=== PATIENT | female | born 1970 | race Caucasian/White ===

== ENCOUNTER 2020-01-29 10:59 | Emergency (ER) | payer OTHER, SELFPAY ==
--- NOTE | 2020-01-29 | ECG_ITS ---
Test Reason : CHEST DISCOMFORT Blood Pressure : / mmHG Vent. Rate : 082 BPM Atrial Rate : 082 BPM P-R Int : 146 ms QRS Dur : 072 ms QT Int : 376 ms P-R-T Axes : 052 024 025 degrees QTc Int : 439 ms Normal sinus rhythm Possible Left atrial enlargement RSR' or QR pattern in V1 suggests right ventricular conduction delay Borderline ECG No previous ECGs available Referred By: Kathy Gee Electronically Signed By:JORDAN SEYMOUR MD
[2020-01-29 13:21] VITALS: BP 164/92; PULSE 88; RESP 18; TEMP 37.1; O2SAT 100; BMI 34.8
--- NOTE | 2020-01-29 13:37 | XR_ITS ---
EXAMINATION: XR CHEST CLINICAL INFORMATION: Dyspnea COMPARISON: None TECHNIQUE: Frontal view of the chest was obtained. FINDINGS: Cardiac leads overlie the chest. The lungs are well expanded. There is no focal consolidation, edema, or effusion. No pneumothorax. The cardiomediastinal silhouette is within normal limits. No acute osseous abnormality. XR/XR chest 1V IMPRESSION: Clear lungs.
--- NOTE | 2020-01-29 13:39 | ED.CHESTPAIN ---
HPI - Chest Pain General Chief Complaint: Chest Pain Stated Complaint: IRREGULAR HEART RATE Time Seen by Provider: 01/29/20 13:37 Source: patient Mode of arrival: ambulatory Limitations: no limitations History of Present Illness MD complaint: chest pain and chest heaviness Onset (ago): hour(s) (started 10am) Timing of current episode: constant Prior episodes: No Onset: during rest and during exertion Pain location: substernal Pain radiation: none Severity: moderate Quality: tightness and heaviness Relieving factors: nothing Exacerbating factors: nothing Associated symptoms: dyspnea and palpitations Treatment prior to arrival: none Related Data Previous Rx's Medication Instructions Recorded levothyroxine 100 mcg tablet 100 mcg PO DAILY #90 tab 01/07/20 Allergies Allergy/AdvReac Type Severity Reaction Status Date / Time amlodipine [AMLODIPINE] Allergy Intermediate SWELLING Unverified 11/27/19 19:09 OF FEET Amlodipine Allergy Unknown lower Uncoded 09/17/19 00:00 extremity Review of Systems Review of Systems: Constitutional : No Weight loss, No Fever, No Chills ENT/Mouth : No sore throat, No Rhinorrhea Eyes: No Eye Pain, No Swelling Cardiovascular : pos Chest Pain, pos SOB, no Dyspnea on Exertion, No Orthopnea, No Edema, No Palpitations Respiratory : No Cough, No Sputum Gastrointestinal : pos Nausea, No Vomiting, No Diarrhea, No abdominal Pain, No Hematochezia, No Melena Genitourinary : No Dysuria, No Urinary Frequency Musculoskeletal : No joint pain, No Myalgias, No Joint Swelling Skin : No Skin Lesions, No rash Neuro : No Weakness, No Numbness, No Dizziness, No Headache Psych : No Anxiety/Panic, No Depression Heme/Lymph: No Bruising, No Lymphadenopathy Endocrine : No Polyuria, No Polydipsia All other systems reviewed and are negative [facility] Past Medical History Attestation statement: The following information was validated with the patient. Medical History High blood pressure Hypothyroid Social History Social History (Updated 01/29/20 @ 13:40 by Kathy Gee DO) Alcohol intake: never Smoking Status: Former smoker Advance Directives: No Advance Directives Information Provided: Yes Physical Exam Vital Signs: Vital Signs: Last Vital Signs Temp 98.7 F 01/29/20 13:21 Pulse 88 01/29/20 13:21 Resp 18 01/29/20 13:21 BP 164/92 H 01/29/20 13:21 Pulse Ox 100 01/29/20 13:21 Body Mass Index 34.8 Appearance: Alert. Oriented X3. No acute distress. Eyes: Pupils equal, round and reactive to light. ENT: Pharynx normal. Neck: Normal inspection. Neck supple. CVS: irregular heart rate and rhythm. Pulses normal. Respiratory: No respiratory distress. Breath sounds normal. Abdomen: Soft and nontender. Skin: Skin warm and dry. Normal skin color. Normal skin turgor. Extremities: No lower extremity edema. No calf ttp Neuro: Oriented X 3. No motor deficit. No sensory deficit. Course Course Course Narrative: patient will need repeat troponin given indeterminate range describes palpitations at this time, given ASA signed out to Dr. Mckinley pending repeat tropon MDM - Chest Pain MDM Narrative Medical decision making narrative: 49 yo female with HTN, thyroid disease comes in with palpitations and dyspnea along with chest heaviness - started at 10am, pulse is irregular on my exam will need labs, lytes, TSH, troponin x 2, ddimer - if positive will need CTA, denies caffeine ingestion, dispo per results and findings. Lab Data Result diagrams: 01/29/20 14:18 01/29/20 15:08 Labs: Lab Results 01/29/20 01/29/20 01/29/20 Range/Units 14:18 14:18 14:19 WBC 11.9 H (4.8-10.8) X10*3/uL RBC 4.30 (4.20-5.50) X10*6/uL Hgb 13.4 (12.0-16.0) g/dl Hct 39.9 (37-47) % MCV 92.8 (80-98) fL MCH 31.2 (27.0-33.0) pg MCHC 33.6 (31.0-35.0) g/dl RDW 13.2 (11.0-16.0) % Plt Count 282 (160-400) X10*3/uL MPV 10.2 (9.4-12.3) fL Immature Gran % (Auto) 0.3 (0.0-0.4) % Neut % (Auto) 69.4 (45-73) % Lymph % (Auto) 20.4 (20-40) % [place] % (Auto) 6.7 (2-11) % Eos % (Auto) 2.4 (0-4) % Baso % (Auto) 0.8 (0-2) % Lymph # (Auto) 2.4 (1.2-4.9) X10*3/uL [place] # (Auto) 0.8 (0.1-1.2) X10*3/uL Eos # (Auto) 0.3 (0.0-0.4) X10*3/uL Baso # (Auto) 0.1 (0.0-0.2) X10*3/uL Abs Immat Gran (auto) 0.03 (0.00-0.03) X10*3/uL Absolute Neuts (auto) 8.2 (2.0-8.3) X10*3/uL Absolute Nucleated RBC 0.000 (0.0-0.012) X10*3/uL Nucleated RBC % (auto) 0.0 (0.0-0.2) /100WBC PT 12.9 (10.8-13.0) SEC INR 1.1 (0.9-1.1) APTT 32.5 (24.1-38.0) SEC D-Dimer < 200 NG/ML Sodium Potassium Chloride Carbon Dioxide Anion Gap BUN Creatinine Estim Creat Clear Calc Estimated GFR Random Glucose Calcium Magnesium Total Bilirubin Direct Bilirubin AST ALT Alkaline Phosphatase Troponin I High Sens 36.2 H (<3.5-17.0) ng/L B-Natriuretic Peptide 23 (<100) pg/mL Total Protein Albumin TSH 01/29/20 01/29/20 01/29/20 Range/Units 14:19 15:08 15:08 WBC (4.8-10.8) X10*3/uL RBC (4.20-5.50) X10*6/uL Hgb (12.0-16.0) g/dl Hct (37-47) % MCV (80-98) fL MCH (27.0-33.0) pg MCHC (31.0-35.0) g/dl RDW (11.0-16.0) % Plt Count (160-400) X10*3/uL MPV (9.4-12.3) fL Immature Gran % (Auto) (0.0-0.4) % Neut % (Auto) (45-73) % Lymph % (Auto) (20-40) % [place] % (Auto) (2-11) % Eos % (Auto) (0-4) % Baso % (Auto) (0-2) % Lymph # (Auto) (1.2-4.9) X10*3/uL [place] # (Auto) (0.1-1.2) X10*3/uL Eos # (Auto) (0.0-0.4) X10*3/uL Baso # (Auto) (0.0-0.2) X10*3/uL Abs Immat Gran (auto) (0.00-0.03) X10*3/uL Absolute Neuts (auto) (2.0-8.3) X10*3/uL Absolute Nucleated RBC (0.0-0.012) X10*3/uL Nucleated RBC % (auto) (0.0-0.2) /100WBC PT (10.8-13.0) SEC INR (0.9-1.1) APTT (24.1-38.0) SEC D-Dimer NG/ML Sodium Cancelled 139 Potassium Cancelled 3.9 Chloride Cancelled 105 Carbon Dioxide Cancelled 25 Anion Gap Cancelled 13 BUN Cancelled 15 Creatinine Cancelled 0.76 Estim Creat Clear Calc Cancelled 121.4 Estimated GFR Cancelled > 60 Random Glucose Cancelled 89 Calcium Cancelled 9.4 Magnesium Cancelled 2.0 Total Bilirubin Cancelled 0.5 Direct Bilirubin Cancelled 0.2 AST Cancelled 18 ALT Cancelled 12 Alkaline Phosphatase Cancelled 59 Troponin I High Sens (<3.5-17.0) ng/L B-Natriuretic Peptide (<100) pg/mL Total Protein Cancelled 7.8 Albumin Cancelled 4.3 TSH Cancelled ECG Data ECG #1: Attestation: I personally reviewed and interpreted this ECG as follows: ECG interpretation date: 01/29/20 ECG interpretation time: 13:46 Interpretation: Rate: 82 Rhythm: NSR [place]: normal Normal P waves. Normal MARY. Normal QRS complex. ST T wave : normal qTC: normal prior studies: no acute ischemia The study has been interpreted contemporaneously by me. . Discharge Plan Discharge Clinical Impression: Chest pain Instructions: Chest Pain (ED) Additional Instructions: return to ED for any worsening symptoms or concerns Prescriptions: No Action levothyroxine 100 mcg tablet 100 mcg PO DAILY Qty: 90 RF: 1 Referrals: Panchito Coleman MD [Primary Care Provider] - 2 days (outpatient stress test) Stand Alone Forms: Work/School Release
[2020-01-29 14:30] LABS: MANUAL DIFF FLAG NO
[2020-01-29 14:34] LABS: Basophils Absolute Auto 0.1 X10*3/uL (0.0-0.2); Basophils Percent Auto 0.8 % (0-2); Eosinophils Absolute Auto 0.3 X10*3/uL (0.0-0.4); Eosinophils Percent Auto 2.4 % (0-4); Hematocrit 39.9 % (37-47); Hemoglobin 13.4 g/dl (12.0-16.0); Imm Gran Abs Auto 0.03 X10*3/uL (0.00-0.03); Imm Gran Pct Auto 0.3 % (0.0-0.4); Lymphocytes Absolute Auto 2.4 X10*3/uL (1.2-4.9); Lymphocytes Percent Auto 20.4 % (20-40); Mean Corpuscular HGB Conc 33.6 g/dl (31.0-35.0); Mean Corpuscular Hemoglobin 31.2 pg (27.0-33.0); Mean Corpuscular Volume 92.8 fL (80-98); Mean Platelet Volume 10.2 fL (9.4-12.3); Monocytes Absolute Auto 0.8 X10*3/uL (0.1-1.2); Monocytes Percent Auto 6.7 % (2-11); Neutrophils Absolute Auto 8.2 X10*3/uL (2.0-8.3); Neutrophils Percent Auto 69.4 % (45-73); Platelet Count 282 X10*3/uL (160-400); Red Cell Distribution Width 13.2 % (11.0-16.0); White Blood Count 11.9 X10*3/uL (4.8-10.8)
[2020-01-29 14:39] LABS: INTERNATIONAL NORM RATIO 1.1 (0.9-1.1); Prothrombin Time 12.9 SEC (10.8-13.0)
[2020-01-29 14:42] LABS: D Dimer < 200 NG/ML; Partial Thromboplastin Time 32.5 SEC (24.1-38.0)
[2020-01-29 15:14] LABS: B Type Natriuretic Peptide 23 pg/mL (<100); Troponin-I High Sensitivity 36.2 ng/L (<3.5-17.0)
[2020-01-29] MEDS: Aspirin 81 MG TAB.CHEW 324 MG PO (15:25)
[2020-01-29 15:38] LABS: Anion Gap 13 (12-20); Blood Urea Nitrogen 15 mg/dL (9-16); Calcium 9.4 mg/dL (8.4-10.2); Carbon Dioxide 25 mmol/L (22-29); Chloride 105 mmol/L (96-108); Creatinine Clr Calc Pharmacy 121.4; Estimated Glomerular Filt Rate > 60; Glucose Random 89 mg/dL (60-115); Potassium 3.9 mmol/l (3.3-5.1); Sodium 139 mmol/L (135-145)
[2020-01-29 15:39] LABS: Alanine Aminotransferase 12 U/L (0-31); Albumin Level 4.3 g/dL (3.5-5.0); Alkaline Phosphatase 59 U/L (39-117); Aspartate Amino Transferase 18 U/L (5-31); Bilirubin Direct 0.2 mg/dL (0.0-0.5); Bilirubin Total 0.5 mg/dL (0.0-1.0); Total Protein 7.8 g/dL (6.5-8.0)
[2020-01-29 15:59] LABS: Thyroid Stimulating Hormone 1.36 uIU/mL (0.32-4.0)
[2020-01-29 16:41] VITALS: BP 134/86; PULSE 72; RESP 14; O2SAT 99
[2020-01-29 17:31] LABS: Troponin-I High Sensitivity 39.2 ng/L (<3.5-17.0)
== END 2020-01-29 17:51 | disposition home or self-care (01) ==
PROVIDERS: Emergency Provider Emergency Medicine; PCP Internal Medicine
DX: R07.9 Chest pain, unspecified (principal); Z79.899 Other long term (current) drug therapy; Z87.891 Personal history of nicotine dependence
CPT/HCPCS: 36415; 71045; 80048; 80076; 83735; 83880; 84443; 84484; 85025; 85379; 85610; 85730; 93005; 99284

== ENCOUNTER 2020-06-10 06:11 | Outpatient (REF) | payer OTHER, SELFPAY ==
[2020-06-10 11:12] LABS: MANUAL DIFF FLAG NO
[2020-06-10 11:39] LABS: Basophils Absolute Auto 0.1 X10*3/uL (0.0-0.2); Eosinophils Absolute Auto 0.4 X10*3/uL (0.0-0.4); Eosinophils Percent Auto 4.4 % (0-4); Hematocrit 40.3 % (37-47); Imm Gran Abs Auto 0.02 X10*3/uL (0.00-0.03); Imm Gran Pct Auto 0.2 % (0.0-0.4); Lymphocytes Absolute Auto 2.4 X10*3/uL (1.2-4.9); Lymphocytes Percent Auto 28.5 % (20-40); Mean Corpuscular HGB Conc 32.3 g/dl (31.0-35.0); Mean Corpuscular Hemoglobin 30.7 pg (27.0-33.0); Mean Platelet Volume 10.3 fL (9.4-12.3); Monocytes Absolute Auto 0.7 X10*3/uL (0.1-1.2); Monocytes Percent Auto 7.8 % (2-11); Neutrophils Absolute Auto 4.8 X10*3/uL (2.0-8.3); Neutrophils Percent Auto 58.1 % (45-73); Platelet Count 346 X10*3/uL (160-400); Red Blood Count 4.24 X10*6/uL (4.20-5.50); Red Cell Distribution Width 13.8 % (11.0-16.0); White Blood Count 8.3 X10*3/uL (4.8-10.8)
[2020-06-10 12:04] LABS: Alanine Aminotransferase 14 U/L (0-31); Albumin Level 4.1 g/dL (3.5-5.0); Alkaline Phosphatase 67 U/L (39-117); Anion Gap 13 (12-20); Aspartate Amino Transferase 18 U/L (5-31); Bilirubin Total 0.3 mg/dL (0.0-1.0); Blood Urea Nitrogen 13 mg/dL (9-16); Carbon Dioxide 28 mmol/L (22-29); Chloride 105 mmol/L (96-108); Cholesterol 182 mg/dL; Estimated Glomerular Filt Rate > 60; Glucose Fasting 82 mg/dL (60-99); HDL Cholesterol 57 mg/dL; LDL Cholesterol Calculated 109 mg/dl; Potassium 4.3 mmol/L (3.3-5.1); Sodium 142 mmol/L (135-145); Total Protein 7.7 g/dL (6.5-8.0); Triglycerides 83 mg/dL
[2020-06-10 12:13] LABS: TSH reflex Free T4 3.33 uIU/mL (0.32-4.0)
== END 2020-06-10 06:12 | disposition home or self-care (01) ==
LOC: HO.HMGCLDS 06:11
PROVIDERS: PCP Internal Medicine; Visit Provider Nurse Practitioner Family
DX: I10 Essential (primary) hypertension (principal); E78.00 Pure hypercholesterolemia, unspecified; E03.9 Hypothyroidism, unspecified
CPT/HCPCS: 36415; 80053; 80061; 84443; 85025

== ENCOUNTER → 2021-02-10 08:47 | Outpatient (BNVA) | payer OTHER, SELFPAY | PROVIDERS: PCP Internal Medicine; Visit Provider Physician Assistant ==

== ENCOUNTER → 2021-06-08 14:43 | Outpatient (REF) | payer OTHER, SELFPAY ==
--- NOTE | 2021-06-08 14:47 | CA_ITS ---
Transthoracic Echocardiogram Patient (Last, First, Middle): Paige Pritchard M Gender: Female Date of : 1970 Age: 51 Procedure Date: 06/08/2021 Procedure Type: Transthoracic Echocardiogram Location: OP Height: 180.34 cm Weight: 117.94 kg BSA: 2.36 m2 Heart Rate: bpm BP: 162 / 70 mmHg Revenue Accountant: YR/TO Referring MD: Panchito Coleman MD Symptoms: I10 - Essential (primary) hypertension Study Quality: Fair ECG Rhythm: Sinus Conclusions: - The left ventricular systolic function is normal. The calculated ejection fraction is 62% by biplane method. - No obvious valvular pathology seen on this study. - There is a small loculated pericardial effusion overlying the left ventricle. Findings Left Ventricle Normal left ventricular cavity size. There is mildly increased left ventricular wall thickness. The left ventricular systolic function is normal. The calculated ejection fraction is 62% by biplane method. There is no evidence of regional wall motion abnormalities. Diastolic function is normal for age. Right Ventricle Normal right ventricular cavity size and systolic function. Atria Both atria are normal in size. Aortic Valve There is a normal trileaflet aortic valve. There is no aortic valve stenosis. There is no aortic valve regurgitation. Mitral Valve The mitral valve appears normal. There is trace mitral valve regurgitation. There is no mitral valve stenosis. Pulmonic Valve The pulmonic valve was not well visualized. Tricuspid Valve There is trace tricuspid valve regurgitation. The pulmonary artery systolic pressure is normal. Great Vessels The aortic annulus, sinuses of valsalva, and asc aorta are normal in size. Venous The inferior vena cava is normal in size and collapses greater than 50% with inspiration. Pericardium/Pleural There is a small loculated pericardial effusion overlying the left ventricle. Prior Study Comparison No prior study available for comparison. Recommendations, Care & Conclusions No obvious valvular pathology seen on this study. Measurements 2D Linear Measurements IVSd: 1.09 0.6-0.9/0.6-1.0 cm LVIDd: 5.74 3.9-5.3/4.2-5.9 cm LVIDd Index: 2.43 2.4-3.2/2.2-3.1 cm/m2 LVIDs: 3.28 2.0-3.6 cm LVPWd: 1.13 0.7-1.1 cm LA Diam: 4.80 2.7-3.8/3.0-4.0 cm LAIDs Index: 2.03 1.5-2.3 cm/m2 LV Mass: 327.85 67-162/88-224 g LV Mass Index: 138.92 43-95/49-115 g/m2 LVOT Diam: 2.00 3.0+(-)1.3 cm 2D Systolic Function EF 4C: 64.40 >55% EF 2C: 60.70 >55% EF BiP: 62.40 >55% Mitral Valve MV Pk E: 0.84 MV PK A: 0.76 MV Decel Time: 269.00 E/A: 1.10 E'Lateral: 5.87 E'Medial: 5.98 E/E' Med: 14.10 E/E' Lat: 14.30 PHT: 79.00 MVA PHT: 2.78 Decel [place]: 3.13 Aortic Valve AoV Pk [place]rade: 1.55 AoV Mn Andrade: 1.09 AoV VTI: 0.37 AoV Pk Grad: 10.00 Aov Mn Grad: 5.00 FATOUMATA Cont.VTI: 2.33 LVOT LVOT Pk Andrade: 1.15 LVOT Mn Andrade: 0.80 LVOT VTI: 0.27 LVOT Pk Grad: 5.00 LVOT Mn Grad: 3.00 LVOT Diam: 2.00 LVOT Area: 3.14 Diastolic Function MV Pk E: 0.84 MV Pk A: 0.76 E/A: 1.10 E'Medial: 5.98 E/E' Med: 14.10 E' Laterial: 5.87 E/E' Lat: 14.30 Right Ventricle TAPSE (mm): 23.40 TVS' [place]: 15.10 Tricuspid Valve TR Pk Andrade: 1.74 TR Pk Grad: 12.00 RA Press: 3.00 RVSP: 15.00 Great Vessels Aorta Sinus of Valsalva: 3.14 2.0-3.[address] [place]: 2.56 1.7-3.4 cm Ao Asc: 3.20 2.1-3.4 cm Ao Arch: 3.10 Updated in Other Vendor System with Status of Final Alonso Sanchez MD electronically signed on 06/09/2021 2:47:47 PM with status of Final
== END ==
LOC: HO.CARD 14:43
PROVIDERS: Visit Provider Internal Medicine
DX: I10 Essential (primary) hypertension (principal)
CPT/HCPCS: 93306

== ENCOUNTER 2021-06-13 06:01 | Outpatient (REF) | payer OTHER, SELFPAY ==
[2021-06-13 12:12] LABS: Hematocrit 41.2 % (37.0-47.0); Hemoglobin 13.3 g/dl (12.0-16.0); Mean Corpuscular HGB Conc 32.3 g/dl (31.0-35.0); Mean Corpuscular Hemoglobin 30.3 pg (27.0-33.0); Mean Corpuscular Volume 93.8 fL (80.0-98.0); Mean Platelet Volume 10.8 fL (9.4-12.3); Platelet Count 292 X10*3/uL (160-400); Red Blood Count 4.39 X10*6/uL (4.20-5.50); Red Cell Distribution Width 13.6 % (11.0-16.0); White Blood Count 9.3 X10*3/uL (4.8-10.8)
[2021-06-13 12:13] LABS: Appearance Urine HAZY; Color Urine YELLOW; Glucose Urine UA NEG (NEG); Leukocyte Esterase Urine NEG (NEG); Nitrite Urine NEG (NEG); Urine Blood NEG (NEG); Urine Ketones NEG (NEG); Urine Protein NEG (NEG-TRACE)
[2021-06-13 12:28] LABS: Alanine Aminotransferase 12 U/L (0-31); Albumin Level 4.1 g/dL (3.5-5.0); Alkaline Phosphatase 71 U/L (39-117); Anion Gap 10 (12-20); Aspartate Amino Transferase 16 U/L (5-31); Bilirubin Direct 0.2 mg/dL (0.0-0.5); Bilirubin Total 0.5 mg/dL (0.0-1.0); Blood Urea Nitrogen 15 mg/dL (9-16); Calcium 9.7 mg/dL (8.4-10.2); Carbon Dioxide 29 mmol/L (22-29); Chloride 105 mmol/L (96-108); Cholesterol 169 mg/dL; Estimated Glomerular Filt Rate > 60; Glucose Random 94 mg/dL (60-115); HDL Cholesterol 47 mg/dL; LDL Cholesterol Calculated 101 mg/dl; Potassium 4.4 mmol/L (3.3-5.1); Sodium 140 mmol/L (135-145); Total Protein 7.8 g/dL (6.5-8.0); Triglycerides 106 mg/dL
[2021-06-13 12:52] LABS: Thyroid Stimulating Hormone 3.16 uIU/mL (0.32-4.0)
[2021-06-18 13:07] LABS: Vitamin D 25-OH, D2 <4 ng/mL; Vitamin D 25-OH, D3 17 ng/mL; Vitamin D 25-OH, Total 17 ng/mL (30-100)
== END 2021-06-13 06:02 | disposition home or self-care (01) ==
LOC: HO.HMGCLDS 06:01
PROVIDERS: Visit Provider Internal Medicine
DX: I10 Essential (primary) hypertension (principal); E66.01 Morbid (severe) obesity due to excess calories
CPT/HCPCS: 36415; 80048; 80061; 80076; 81003; 82306; 84443; 85027

== ENCOUNTER 2021-07-18 07:27 | Emergency (ER) | payer OTHER, SELFPAY ==
--- NOTE | ~2021-07-18 | XR_ITS ---
EXAMINATION: XR LUMBOSACRAL SPINE CLINICAL INFORMATION: Back pain. COMPARISON: None TECHNIQUE: Three views of the lumbosacral spine. FINDINGS: There are 5 nonrib-bearing lumbar vertebrae present endplate osteophyte formations, endplate sclerosis, consistent with multilevel mild degenerative spondylosis related changes are present. The L5-S1 alignment is not optimally evaluated to suboptimal positioning. The remainder of the lumbar vertebrae show satisfactory alignment. The posterior appendages are intact. The paraspinal soft tissues are unremarkable. XR/XR lumbar spine 2-3V IMPRESSION: Mild multilevel degenerative spondylosis. The L5-S1 and alignment is suboptimally visualized likely related to positioning. Alternative imaging modality may be considered for further clarification of this area if clinically appropriate.
[2021-07-18 07:30] VITALS: BP 160/94; PULSE 66; RESP 18; TEMP 35.7; O2SAT 100; BMI 36.9
[2021-07-18] MEDS: Ketorolac Tromethamine 60 MG/2 ML VIAL IM (09:06)
[2021-07-18 09:09] LABS: Appearance Urine HAZY; Color Urine YELLOW; Glucose Urine UA NEG (NEG); Leukocyte Esterase Urine NEG (NEG); Nitrite Urine NEG (NEG); PH 6.5 (5.0-8.0); Specific Gravity - Urine <= 1.005 (1.005-1.025); Urine Blood NEG (NEG); Urine Ketones NEG (NEG); Urine Protein NEG (NEG-TRACE)
--- NOTE | 2021-07-18 09:31 | ED.BACK ---
HPI - Back Pain/Injury General Chief Complaint: Back Pain/Injury Stated Complaint: Back pain Time Seen by Provider: 07/18/21 08:24 Source: patient Mode of arrival: ambulatory Limitations: no limitations History of Present Illness HPI Narrative: 51 yo female with a history of high blood pressure, high cholesterol, hypothyroidism, obesity here with reports of bilateral lower back pain for 6 days with no known injury or trauma. Pain is worsened with flexion of the spine. Pain is worsened with certain position changes in the bed. No radiation of pain. No numbness or tingling of the lower extremities. No bowel or bladder incontinence. No fevers or chills. Patient is ambulatory. Patient reports she is taking ibuprofen and Flexeril with continued symptoms. She was seen at urgent care on July 14 and started on Flexeril patient tells me she had already been taking this at home. She feels like pain is unchanged. She recently did get diagnosed with Achilles tendinitis of the left lower extremity and was using a boot. Patient is unsure if this may have caused her back pain as she was walking with the boot for some time. Related Data Previous Rx's Medication Instructions Recorded atorvastatin 10 mg tablet 10 mg PO DAILY 90 Days #90 tab 02/04/20 levothyroxine 100 mcg tablet 100 mcg PO DAILY 90 Days #90 tab 02/04/20 cyclobenzaprine 10 mg tablet 10 mg PO BEDTIME PRN #30 tab 05/10/20 losartan 50 mg tablet 50 mg PO DAILY #30 tab 06/27/20 celecoxib 200 mg capsule (Celebrex) 200 mg PO BID 30 Days #60 cap 02/10/21 levothyroxine 100 mcg tablet 100 mcg PO DAILY #90 tab 04/30/21 atorvastatin 10 mg tablet 10 mg PO DAILY #90 tab 05/06/21 metoprolol succinate 100 mg 100 mg PO DAILY #90 tab 06/15/21 tablet,extended release 24 hr cholecalciferol (vitamin D3) 1,250 1,250 mcg PO QWEEK #14 cap 06/23/21 mcg (50,000 unit) capsule cyclobenzaprine 10 mg tablet 10 mg PO BEDTIME #14 tab 07/14/21 losartan 50 mg tablet 100 mg PO DAILY 30 Days #60 tab 07/14/21 lidocaine 5 % topical patch 1 patch TOPICAL DAILY #15 ea 07/18/21 (Lidoderm) naproxen 500 mg tablet 500 mg PO BID PRN #30 tab 07/18/21 prednisone 20 mg tablet 40 mg PO DAILY #10 tab 07/18/21 Allergies Allergy/AdvReac Type Severity Reaction Status Date / Time amlodipine [AMLODIPINE] Allergy Intermediate SWELLING Verified 07/18/21 08:04 OF FEET Review of Systems Review of Systems: Yes all other systems are reviewed and are negative Constitutional: Constitutional: Reports no additional constitutional complaints, Denies body ache(s), Denies chills, Denies fever(s), Denies headache(s) and Denies weakness Eyes: Eyes: Reports no additional eye complaints and Denies change in vision ENT: Reports system reviewed and no additional complaints, except as documented, Denies dizziness, Denies headache(s), Denies nasal congestion, Denies nasal discharge and Denies neck pain Cardiovascular: Cardiovascular: Reports no additional cardiovascular complaints, Denies chest pain, Denies leg edema and Denies dyspnea Respiratory: Respiratory: Reports no additional respiratory complaints, Denies cough and Denies dyspnea Gastrointestinal: Gastrointestinal: Reports no additional gastrointestinal complaints, Denies abdominal pain, Denies diarrhea, Denies nausea and Denies vomiting Genitourinary: Genitourinary: Reports no additional female genitourinary complaints and Denies urinary incontinence Musculoskeletal: Musculoskeletal: Reports no additional musculoskeletal complaints, Reports back pain, Denies arthralgias, Denies joint swelling, Denies neck pain, Denies numbness and Denies tingling Integumentary/Breasts: Skin/Breast: Reports system reviewed and no additional complaints, except as docu and Denies rash Neurologic: Reports system reviewed and no additional complaints, except as documented, Denies Abnormal speech present, Denies dizziness, Denies headache(s), Denies numbness, Denies tingling and Denies weakness [facility] Past Medical History Attestation statement: The following information was validated with the patient. Source: old records reviewed and nursing notes reviewed Medical History Chest pain at rest Class 2 severe obesity with body mass index (BMI) of 35 to 39.9 with serious comorbidity Essential hypertension High blood pressure High cholesterol High cholesterol Hypertension Hypothyroid Hypothyroidism Hypothyroidism Surgical History History of History of foot surgery History of tonsillectomy Family History Family History Mother No problems noted. Father No problems noted. 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 Cognitive needs: No Hearing needs: No Vision needs: Yes (Glasses) Physical Exam Vital Signs: Vital Signs: Last Vital Signs Temp 96.2 F L 07/18/21 07:30 Pulse 66 07/18/21 07:30 Resp 18 07/18/21 09:45 BP 160/94 H 07/18/21 07:30 Pulse Ox 100 07/18/21 07:30 BMI result Body Mass Index 36.9 Const: General: cooperative, healthy appearing, comfortable and no acute distress Orientation/consciousness: patient oriented x3 Limitations: no limitations HEENT: Head: Yes normal to inspection Ears: hearing grossly normal bilaterally General nose exam: Normal external nose present Face and sinus: Yes normal facial exam Mouth: Normal oral and palatal mucosa present Throat: Yes posterior oropharynx normal Eyes: General: appearance normal, both eyes and all related structures Pupils: Equal, round and reactive pupils present Neck: Neck: Yes normal visual inspection Chest: Chest palpation & inspection: normal inspection of the chest Resp: Effort & Inspection: normal respiratory effort Auscultation: clear to auscultation bilaterally Cardio: Rate: regular rate Rhythm: regular rhythm Peripheral pulses: Peripheral pulses 2+ throughout GI: Inspection: Yes normal to inspection Palpation (GI): Soft to palpation and nontender Auscultation: normal bowel sounds Back/Spine/Pelvis: Other: There is no midline lumbar spine tenderness there are no step-offs or deformities. There is tenderness to the lumbar soft tissue area and over the paraspinal area that is worsened with flexion of the lumbar spine. There is pain with straight leg raise on the left side. The right side is normal with no pain. Thoracic/Lumbar Spine: thoracic and lumbar spine normal to inspection Skin: General skin exam: no rashes or lesions noted Neuro: General: patient oriented x3, no focal motor deficits and normal sensation to monofilament Cranial nerves: Yes Equal, round and reactive pupils present Cognition (Neuro): normal cognition Speech: No Abnormal speech present Gait exam (Neuro): Normal gait present Motor exam (neuro): 5/5 motor strength present throughout Sensory Exam: Normal double simultaneous stimulation for sensation Deep tendon reflexes (DTR's): Right patellar reflex intensity grade: 2+ and Left patellar reflex intensity grade: 2+ Extrem: General: Yes normal to inspection Course Course Course Narrative: 51-year-old female here with reports of 6 days of lower back pain with no known injury or trauma. No neurological deficits. No red flag symptoms. Pain is worsened with flexion of the spine. Patient has been trying NSAIDs and Flexeril at home with continued symptoms. Will check x-ray, UA, provide analgesia and reassess Reevaluation(s) Reevaluation #1: UA shows no signs of infection/hematuria. X-rays show -Mild multilevel degenerative spondylosis. The L5-S1 and alignment is suboptimally visualized likely related to positioning. Alternative imaging modality may be considered for further clarification of this area if clinically appropriate. -patient tells me she has some improvement after receiving Toradol. She said she has some more increased range of motion is able to bend down now. Consider lumbar strain, herniated disc/bulging disc or disease. Discussed with patient. Recommend follow-up outpatient with her primary care doctor for persistent symptoms for either physical therapy or additional imaging. She does have Flexeril at home and ibuprofen. We will change her a probing to naproxen, add Lidoderm prednisone. Reviewed worrisome signs and symptoms such as incontinence, numbness or tingling in the groin, fever and when to return to the emergency department. Comfortable discharge home. Time: 11:00 MDM - Back Pain/Injury MDM Narrative Medical decision making narrative: Low concern for cauda equina with no reports of saddle anesthesia or incontinence. Low concern for epidural abscess with no reports of fever, no history of immunocompromise state, IV drug use. Medical Records Attestation: I reviewed the patient's medical records. Lab Data Attestation: I reviewed the patient's lab results. Labs: Lab Results 07/18/21 Range/Units 09:02 Urine Color YELLOW Urine Appearance HAZY Urine pH 6.5 (5.0-8.0) Ur Specific [place] <= 1.005 (1.005-1.025) Urine Protein NEG (NEG-TRACE) MG/DL Urine Glucose (UA) NEG (NEG) MG/DL Urine Ketones NEG (NEG) MG/DL Urine Blood NEG (NEG) Urine Nitrite NEG (NEG) Ur Leukocyte Esterase NEG (NEG) Imaging Data lumbar x-rays: Attestation: I personally reviewed and interpreted this imaging study as follows: Radiologist's impression: [address] [address] XRay Report Signed Patient: Paige Pritchard MR#: [id number] : 1970 Acct:[id number] Age/Sex: 51 / F ADM Date: 07/18/21 Loc: HO.ED Attending Dr: Ordering Physician: Grisel Penn NP Date of Service: 07/18/21 Procedure(s): XR lumbar spine 2-3V Accession Number(s): [id number] cc: Grisel Penn NP~ EXAMINATION: XR LUMBOSACRAL SPINE CLINICAL INFORMATION: Back pain. COMPARISON: None TECHNIQUE: Three views of the lumbosacral spine. FINDINGS: There are 5 nonrib-bearing lumbar vertebrae present endplate osteophyte formations, endplate sclerosis, consistent with multilevel mild degenerative spondylosis related changes are present. The L5-S1 alignment is not optimally evaluated to suboptimal positioning. The remainder of the lumbar vertebrae show satisfactory alignment. The posterior appendages are intact. The paraspinal soft tissues are unremarkable. XR/XR lumbar spine 2-3V IMPRESSION: Mild multilevel degenerative spondylosis. The L5-S1 and alignment is suboptimally visualized likely related to positioning. Alternative imaging modality may be considered for further clarification of this area if clinically appropriate. Discharge Plan Discharge Clinical Impression: Back pain Patient Disposition: Home, Self-Care Instructions: Acute Low Back Pain (ED) Additional Instructions: Heat or ice Gentle stretching For persistent pain follow-up with her primary care doctor to discuss referral for physical therapy and/or additional imaging such as an MRI Take the Flexeril up to 3 times daily. Do not take it of working. We are switching your ibuprofen to naproxen Prescriptions: New naproxen 500 mg tablet 500 mg PO BID PRN (Reason: pain) Qty: 30 0RF lidocaine [Lidoderm] 5 % adhesive patch,medicated 1 patch topical DAILY Qty: 15 0RF Rx Instructions: leave on most painful area for up to 12 hrs prednisone 20 mg tablet 40 mg PO DAILY Qty: 10 0RF No Action cyclobenzaprine 10 mg tablet 10 mg PO BEDTIME PRN (Reason: for muscle spasm) Qty: 30 0RF losartan 50 mg tablet 50 mg PO DAILY Qty: 30 11RF levothyroxine 100 mcg tablet 100 mcg PO DAILY Qty: 90 1RF atorvastatin 10 mg tablet 10 mg PO DAILY Qty: 90 1RF cholecalciferol (vitamin D3) 1,250 mcg (50,000 unit) capsule 1,250 mcg PO QWEEK Qty: 14 1RF levothyroxine 100 mcg tablet 100 mcg PO DAILY 90 Days Qty: 90 0RF atorvastatin 10 mg tablet 10 mg PO DAILY 90 Days Qty: 90 0RF metoprolol succinate 100 mg tablet extended release 24 hr 100 mg PO DAILY Qty: 90 1RF losartan 50 mg tablet 100 mg PO DAILY 30 Days Qty: 60 1RF cyclobenzaprine 10 mg tablet 10 mg PO BEDTIME Qty: 14 0RF celecoxib [Celebrex] 200 mg capsule 200 mg PO BID 30 Days Qty: 60 0RF Referrals: Panchito Coleman MD [Primary Care Provider] - 5 days Stand Alone Forms: Work/School Release Interventions: ED Discharge Assessment Last Done: 07/18/21 10:57 Discharge Date/Time: 07/18/21 10:57
[2021-07-18 09:45] VITALS: RESP 18
== END 2021-07-18 10:57 | disposition home or self-care (01) ==
PROVIDERS: Nurse Practitioner Family; Emergency Provider Emergency Medicine; PCP Internal Medicine
DX: M54.50 Low back pain, unspecified (principal); M47.817 Spondylosis without myelopathy or radiculopathy, lumbosacral region; I10 Essential (primary) hypertension
CPT/HCPCS: 72100; 81003; 96372; 99284; J1885

== ENCOUNTER 2021-12-23 06:14 | Outpatient (REF) | payer OTHER, SELFPAY ==
[2021-12-23 11:46] LABS: Hematocrit 40.8 % (37.0-47.0); Hemoglobin 13.5 g/dl (12.0-16.0); Mean Corpuscular HGB Conc 33.1 g/dl (31.0-35.0); Mean Corpuscular Hemoglobin 30.1 pg (27.0-33.0); Mean Corpuscular Volume 90.9 fL (80.0-98.0); Mean Platelet Volume 10.9 fL (9.4-12.3); Platelet Count 274 X10*3/uL (160-400); Red Blood Count 4.49 X10*6/uL (4.20-5.50); Red Cell Distribution Width 13.2 % (11.0-16.0); White Blood Count 8.8 X10*3/uL (4.8-10.8)
[2021-12-23 12:02] LABS: Alanine Aminotransferase 13 U/L (0-31); Albumin Level 4.2 g/dL (3.5-5.0); Alkaline Phosphatase 74 U/L (39-117); Anion Gap 15 (12-20); Aspartate Amino Transferase 21 U/L (5-31); Bilirubin Direct 0.2 mg/dL (0.0-0.5); Bilirubin Total 0.6 mg/dL (0.0-1.0); Blood Urea Nitrogen 14 mg/dL (9-16); Calcium 9.5 mg/dL (8.4-10.2); Carbon Dioxide 25 mmol/L (22-29); Chloride 105 mmol/L (96-108); Cholesterol 173 mg/dL; Estimated Glomerular Filt Rate > 60; Glucose Random 94 mg/dL (60-115); HDL Cholesterol 49 mg/dL; LDL Cholesterol Calculated 106 mg/dl; Potassium 4.2 mmol/L (3.3-5.1); Sodium 141 mmol/L (135-145); Total Protein 7.8 g/dL (6.5-8.0); Triglycerides 94 mg/dL
[2021-12-23 12:17] LABS: Thyroid Stimulating Hormone 3.47 uIU/mL (0.32-4.0)
== END 2021-12-23 06:15 | disposition home or self-care (01) ==
LOC: HO.HMGCLDS 06:14
PROVIDERS: PCP Internal Medicine; Visit Provider Internal Medicine
DX: E03.9 Hypothyroidism, unspecified (principal); I10 Essential (primary) hypertension
CPT/HCPCS: 36415; 80048; 80061; 80076; 84443; 85027

== ENCOUNTER 2022-02-18 07:58 | Outpatient (REF) | payer OTHER, SELFPAY ==
[2022-02-18 11:14] LABS: MANUAL DIFF FLAG NO
[2022-02-18 11:19] LABS: Basophils Absolute Auto 0.1 X10*3/uL (0.0-0.2); Basophils Percent Auto 1.3 % (0-2); Eosinophils Absolute Auto 0.3 X10*3/uL (0.0-0.4); Eosinophils Percent Auto 3.4 % (0-4); Hematocrit 42.4 % (37.0-47.0); Hemoglobin 13.5 g/dl (12.0-16.0); Imm Gran Abs Auto 0.02 X10*3/uL (0.00-0.03); Imm Gran Pct Auto 0.2 % (0.0-0.4); Lymphocytes Absolute Auto 2.4 X10*3/uL (1.2-4.9); Mean Corpuscular HGB Conc 31.8 g/dl (31.0-35.0); Mean Corpuscular Hemoglobin 29.7 pg (27.0-33.0); Mean Corpuscular Volume 93.2 fL (80.0-98.0); Monocytes Absolute Auto 0.8 X10*3/uL (0.1-1.2); Monocytes Percent Auto 9.6 % (2-11); Neutrophils Absolute Auto 4.8 x10*3/uL (2.0-8.3); Neutrophils Percent Auto 57.5 % (45-73); Platelet Count 295 X10*3/uL (160-400); Red Blood Count 4.55 X10*6/uL (4.20-5.50); Red Cell Distribution Width 13.9 % (11.0-16.0); White Blood Count 8.4 X10*3/uL (4.8-10.8)
[2022-02-18 11:36] LABS: Appearance Urine Clear; Color Urine Yellow; Glucose Urine UA Negative (Negative); Leukocyte Esterase Urine Negative (Negative); Nitrite Urine Negative (Negative); PH 6.5 (5.0-9.0); Specific Gravity - Urine 1.015 (1.005-1.025); Urine Blood Negative (Negative); Urine Ketones Negative (Negative); Urine Protein Negative (Neg-Trace)
[2022-02-18 11:59] LABS: Alanine Aminotransferase 14 U/L (0-31); Albumin Level 4.2 g/dL (3.5-5.0); Alkaline Phosphatase 58 U/L (39-117); Anion Gap 13 (12-20); Aspartate Amino Transferase 21 U/L (5-31); Bilirubin Total 0.6 mg/dL (0.0-1.0); Blood Urea Nitrogen 18 mg/dL (9-16); Calcium 9.8 mg/dL (8.4-10.2); Carbon Dioxide 26 mmol/L (22-29); Chloride 105 mmol/L (96-108); Cholesterol 177 mg/dL; Estimated Glomerular Filt Rate > 60; Glucose Fasting 97 mg/dL (60-99); HDL Cholesterol 50 mg/dL; LDL Cholesterol Calculated 111 mg/dl; Potassium 4.5 mmol/L (3.3-5.1); Sodium 139 mmol/L (135-145); Total Protein 7.7 g/dL (6.5-8.0); Triglycerides 82 mg/dL
== END 2022-02-18 07:59 | disposition home or self-care (01) ==
LOC: HO.HMGCLDS 07:58
PROVIDERS: PCP Nurse Practitioner Family; Visit Provider Nurse Practitioner Family
DX: E03.9 Hypothyroidism, unspecified (principal); E78.00 Pure hypercholesterolemia, unspecified; I10 Essential (primary) hypertension
CPT/HCPCS: 36415; 80053; 80061; 81003; 84443; 85025

== ENCOUNTER → 2022-06-06 13:48 | Outpatient (BNVA) | payer OTHER, SELFPAY | PROVIDERS: PCP Nurse Practitioner Family; Visit Provider Physician Assistant Surgical | DX: Z13.89 Encounter for screening for other disorder (principal) ==

== ENCOUNTER 2022-06-10 10:53 | Outpatient (REF) | payer OTHER, SELFPAY ==
[2022-06-10 12:20] LABS: MANUAL DIFF FLAG NO
[2022-06-10 12:22] LABS: Basophils Absolute Auto 0.1 X10*3/uL (0.0-0.2); Basophils Percent Auto 0.9 % (0-2); Eosinophils Absolute Auto 0.4 X10*3/uL (0.0-0.4); Eosinophils Percent Auto 3.4 % (0-4); Hematocrit 38.5 % (37.0-47.0); Hemoglobin 12.9 g/dl (12.0-16.0); Imm Gran Abs Auto 0.04 X10*3/uL (0.00-0.03); Imm Gran Pct Auto 0.4 % (0.0-0.4); Lymphocytes Absolute Auto 2.8 X10*3/uL (1.2-4.9); Lymphocytes Percent Auto 27.5 % (20-40); Mean Corpuscular HGB Conc 33.5 g/dl (31.0-35.0); Mean Corpuscular Hemoglobin 31.8 pg (27.0-33.0); Mean Corpuscular Volume 94.8 fL (80.0-98.0); Mean Platelet Volume 10.6 fL (9.4-12.3); Monocytes Absolute Auto 1.1 X10*3/uL (0.1-1.2); Monocytes Percent Auto 10.3 % (2-11); Neutrophils Absolute Auto 5.9 x10*3/uL (2.0-8.3); Neutrophils Percent Auto 57.5 % (45-73); Platelet Count 297 X10*3/uL (160-400); Red Blood Count 4.06 X10*6/uL (4.20-5.50); Red Cell Distribution Width 14.1 % (11.0-16.0); Retic HGB Equivalent 35.3 pg (30.0-35.0); Reticulocyte Percent 1.8 % (0.5-1.8); Reticulocytes Absolute 0.074 X10*6/uL (0.026-0.095); White Blood Count 10.3 X10*3/uL (4.8-10.8)
[2022-06-10 12:32] LABS: Appearance Urine Clear; Color Urine Yellow; Glucose Urine UA Negative (Negative); Leukocyte Esterase Urine Negative (Negative); Nitrite Urine Negative (Negative); PH 7.5 (5.0-9.0); Specific Gravity - Urine 1.015 (1.005-1.025); Urine Blood Negative (Negative); Urine Ketones Negative (Negative); Urine Protein Negative (Neg-Trace)
[2022-06-10 13:03] LABS: Alanine Aminotransferase 16 U/L (0-31); Albumin Level 4.2 g/dL (3.5-5.0); Alkaline Phosphatase 77 U/L (39-117); Anion Gap 16 (12-20); Aspartate Amino Transferase 22 U/L (5-31); Bilirubin Total 0.5 mg/dL (0.0-1.0); Blood Urea Nitrogen 18 mg/dL (9-16); Calcium 9.9 mg/dL (8.4-10.2); Carbon Dioxide 25 mmol/L (22-29); Chloride 104 mmol/L (96-108); Estimated Glomerular Filt Rate > 60; Glucose Random 76 mg/dL (60-115); Iron 101 mcg/dL (30-160); Percent Iron Saturation 34 % (15-50); Potassium 4.7 mmol/L (3.3-5.1); Sodium 140 mmol/L (135-145); Total Iron Binding Capacity 294 mcg/dL (228-428); Total Protein 7.7 g/dL (6.5-8.0); Unsaturated Iron Binding 193 ug/dL
[2022-06-10 13:31] LABS: Ferritin 101 ng/mL (10-250); Folate 12.5 ng/mL (> or = 4.0); TSH reflex Free T4 2.74 uIU/mL (0.32-4.0); Vitamin B12 594 pg/mL (200-900)
== END 2022-06-10 10:54 | disposition home or self-care (01) ==
LOC: HO.HMGCLDS 10:53
PROVIDERS: PCP Nurse Practitioner Family; Visit Provider Nurse Practitioner Family
DX: R42 Dizziness and giddiness (principal); R53.83 Other fatigue
CPT/HCPCS: 36415; 80053; 81003; 82607; 82728; 82746; 83540; 83735; 84443; 85025; 85045

== ENCOUNTER → 2022-06-19 14:01 | Outpatient (BNVA) | payer OTHER, SELFPAY | PROVIDERS: PCP Nurse Practitioner Family; Visit Provider Physician Assistant Surgical | DX: Z13.89 Encounter for screening for other disorder (principal) ==

== ENCOUNTER → 2022-07-10 09:20 | Outpatient (BNVA) | payer OTHER, SELFPAY | PROVIDERS: PCP Nurse Practitioner Family; Visit Provider Dietitian, Registered | DX: E66.9 Obesity, unspecified (principal); Z68.38 Body mass index [BMI] 38.0-38.9, adult; Z71.3 Dietary counseling and surveillance | CPT/HCPCS: 97802 ==

== ENCOUNTER 2022-07-26 13:30 | Outpatient (REF) | payer OTHER, SELFPAY ==
--- NOTE | ~2022-07-26 | MR_ITS ---
EXAMINATION: MR BRAIN WITHOUT CONTRAST CLINICAL INFORMATION: Dizziness and giddiness. COMPARISON: None available. TECHNIQUE: MRI of the brain was obtained using routine sequences without contrast. FINDINGS: No focal restricted diffusion is demonstrated to suggest acute or subacute cerebral ischemia. No evidence of acute or chronic hemorrhagic products on heme-sensitive imaging. Scattered periventricular and deep white matter T2 FLAIR hyperintensities most commonly seen with mild underlying microangiopathy. The ventricles are normal in morphology and size. No abnormal mass effect. No midline shift. Normal appearance of the pituitary gland. No mass of the cerebellopontine angles. Normal positioning of the cerebellar tonsils. Normal arterial and venous vascular flow voids are present. Normal, homogeneous marrow signal. Mild mucosal thickening of the paranasal sinuses. No signal abnormalities within the mastoids. No demonstrated abnormalities of the labyrinthine structures without demonstrated loss of T2 signal. MR/MR head/brain wo con IMPRESSION: 1. No acute intracranial abnormalities. 2. Mild nonspecific white matter changes most commonly seen with mild underlying microangiopathy.
== END 2022-07-26 13:31 | disposition home or self-care (01) ==
LOC: HO.MRI 13:30
PROVIDERS: PCP Nurse Practitioner Family; Visit Provider Nurse Practitioner Family
DX: R42 Dizziness and giddiness (principal)
CPT/HCPCS: 70551

== ENCOUNTER → 2022-08-17 15:40 | Outpatient (BNVA) | payer OTHER, SELFPAY | PROVIDERS: PCP Nurse Practitioner Family; Visit Provider Physician Assistant Surgical ==

== ENCOUNTER 2022-10-30 12:57 | Outpatient (AMB) | payer OTHER, SELFPAY ==
--- NOTE | 2022-10-30 13:59 | AM.OFFWIN_ITS ---
Intake Vital Signs 10/30/22 14:01 Height 5 ft 11 in Weight 280 lb BMI 39.0 BP 112/70 Blood Pressure Location Lt brachial Position Sitting Pulse 66 Pulse Source Pulse Oximeter Temp 98.0 F Temp Source Temporal Artery Scan Pulse Oximetry (%) 100 Oxygen Delivery Method Room Air Intake Visit Reasons: EP/Fever/Difficulty breathing/[phone] Intake Note: pt is here for c/o fever, difficulty breathing since sunday Patient Tobacco Use Status: Former Tobacco user (2019) Allergies amlodipine [AMLODIPINE] Allergy (Intermediate, Verified 10/30/22 14:00) SWELLING OF FEET Do you need a note to return to daycare/school/sports/work: Yes HPI EP/Fever/Difficulty breathing/[phone] HPI Details Patient presents for a sick visit. Reporting symptoms of sinus congestion, sore throat and difficulty swallowing. Low-grade fever. No family member is sick. No recent travel. Patient reports symptoms of malaise and fatigue. Patient reports high-grade fever at times relieved with Motrin. [facility] Medical History Class 2 severe obesity with body mass index (BMI) of 35 to 39.9 with serious comorbidity Essential hypertension High cholesterol Hypothyroidism Surgical History History of History of foot surgery History of tonsillectomy Family History Mother No problems noted. Father No problems noted. 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 Current occupational exposures/hazards: No Cognitive needs: No Hearing needs: No Vision needs: Yes (Glasses) Physical Exam Vital Signs: Last Vital Signs Temp 98.0 F 10/30/22 14:01 Pulse 66 10/30/22 14:01 BP 112/70 10/30/22 14:01 Pulse Ox 100 10/30/22 14:01 Oxygen Delivery Method Room Air 10/30/22 14:01 BMI result Body Mass Index 39.0 Const General: cooperative and healthy appearing Nutritional Appearance: well nourished Orientation/consciousness: patient oriented x3 Limitations: no limitations HEENT Head: Yes normal to inspection Eyes General: appearance normal, both eyes and all related structures Neck Neck: Yes normal visual inspection Chest Chest palpation & inspection: normal palpation of entire chest wall Resp Effort & Inspection: normal respiratory effort Neuro General: patient oriented x3 Assessment & Plan Assessment & Plan (1) Acute bronchitis: Code(s): J20.9 - Acute bronchitis, unspecified Plan: Chest x-ray images was was reviewed by me. Patient has a large infiltrate on the right upper lobe. Levaquin, blood work ordered. Tylenol every 6 hours. Patient was experiencing excessive pain in the right shoulder. Tramadol for a few days ordered. Orders: Orders Basic Metabolic Panel Today J20.9 - Acute bronchitis, unspecified Liver Panel Today J20.9 - Acute bronchitis, unspecified Complete Blood Count no Diff Today J20.9 - Acute bronchitis, unspecified Erythrocyte Sedimentation Rate Today J20.9 - Acute bronchitis, unspecified AMB Acetaminophen Adult Dose Today J20.9 - Acute bronchitis, unspecified Medications: New acetaminophen 500 mg PO ONCE 1 tab 0RF J20.9 - Acute bronchitis, unspecified tramadol 50 mg PO BID PRN 10 tabs 0RF pain levofloxacin 500 mg PO DAILY 7 tabs 0RF Coding Level of Care Code Est Pt Level 4 (65536) Diagnoses Acute bronchitis J20.9
[2022-10-30 14:01] VITALS: BP 112/70; PULSE 66; TEMP 36.7; O2SAT 100; BMI 39.0
== END 2022-10-30 16:42 | disposition home or self-care (01) ==
PROVIDERS: PCP Nurse Practitioner Family; Visit Provider Internal Medicine
DX: J20.9 Acute bronchitis, unspecified (principal)
CPT/HCPCS: 99214

== ENCOUNTER 2022-10-30 14:32 | Outpatient (REF) | payer OTHER, SELFPAY ==
--- NOTE | ~2022-10-30 | XR_ITS ---
EXAMINATION: XR CHEST CLINICAL INFORMATION: Acute bronchitis. COMPARISON: 01/29/2020 chest radiograph. TECHNIQUE: 2 views of the chest were obtained. FINDINGS: Consolidation is seen posteroinferiorly in the right upper lobe. The left lung is clear. There are no pleural effusions. The heart and mediastinal structures are unremarkable. XR/XR chest 2V IMPRESSION: Right upper lobe infiltrate. Given the level of consolidation and lack of recent chest radiographs, 8 chest radiograph following termination treatment is recommended to assess for resolution.
[2022-10-30 17:08] LABS: Hematocrit 36.4 % (37.0-47.0); Mean Corpuscular Hemoglobin 30.6 pg (27.0-33.0); Mean Corpuscular Volume 92.9 fL (80.0-98.0); Mean Platelet Volume 10.3 fL (9.4-12.3); Platelet Count 277 X10*3/uL (160-400); Red Blood Count 3.92 X10*6/uL (4.20-5.50); Red Cell Distribution Width 13.9 % (11.0-16.0); White Blood Count 15.7 X10*3/uL (4.8-10.8)
[2022-10-30 17:41] LABS: Alanine Aminotransferase 21 U/L (0-31); Albumin Level 3.8 g/dL (3.5-5.0); Alkaline Phosphatase 86 U/L (39-117); Anion Gap 15 (12-20); Aspartate Amino Transferase 28 U/L (5-31); Bilirubin Direct 0.3 mg/dL (0.0-0.5); Bilirubin Total 0.5 mg/dL (0.0-1.0); Blood Urea Nitrogen 13 mg/dL (9-16); Calcium 9.8 mg/dL (8.4-10.2); Carbon Dioxide 24 mmol/L (22-29); Chloride 102 mmol/L (96-108); Estimated Glomerular Filt Rate 60; Glucose Random 97 mg/dL (60-115); Potassium 3.9 mmol/L (3.3-5.1); Sodium 137 mmol/L (135-145); Total Protein 8.2 g/dL (6.5-8.0)
[2022-10-30 17:48] LABS: Erythrocyte Sedimentation Rate 92 MM/HR (0-20)
== END 2022-10-30 14:33 | disposition home or self-care (01) ==
LOC: HO.HMGCX 14:32
PROVIDERS: PCP Nurse Practitioner Family; Visit Provider Internal Medicine
DX: J20.9 Acute bronchitis, unspecified (principal)
CPT/HCPCS: 36415; 71046; 80048; 80076; 85027; 85652

== ENCOUNTER 2022-10-31 17:01 | Inpatient (IN) | payer OTHER, SELFPAY ==
--- NOTE | ~2022-10-31 | XR_ITS ---
EXAMINATION: XR CHEST CLINICAL INFORMATION: Shortness of breath. COMPARISON: Chest radiograph 10/30/2022. TECHNIQUE: Frontal view of the chest was obtained. FINDINGS: Stable appearance of the cardiomediastinal silhouette. Similar focal airspace opacity in the right upper lobe. Slightly increased hazy attenuation of the right lower lobe. Clear left lung. No pleural effusion or pneumothorax. No acute osseous findings. XR/XR chest 1V IMPRESSION: 1. Similar focal airspace opacity in the right upper lobe. 2. Slightly increased hazy attenuation of the right lower lobe which could be related with subsegmental atelectasis, aspiration or a new/developing infiltrate. A follow-up radiograph is recommended after treatment to ensure adequate resolution of pneumonic infiltrates and rule out underlying lesion/malignancy.
--- NOTE | ~2022-10-31 | CT_ITS ---
EXAMINATION: CT ANGIOGRAM OF THE CHEST WITH AND WITHOUT CONTRAST (CT PULMONARY ANGIOGRAM FOR PE) CLINICAL INFORMATION: Pleuritic chest pain. COMPARISON: Chest x-rays of 10/31/2022, 10/30/2022, 01/29/2020. TECHNIQUE: Prior to contrast administration, noncontrast localization images were obtained. Subsequently, multidetector volumetric imaging was performed from the thoracic inlet to below the diaphragms following the administration of 65 mL Omnipaque 350 intravenous contrast. No contrast reaction reported Sagittal, coronal, and MIP oblique sagittal reformatted images were obtained on the CT workstation, uploaded to PACS, and reviewed. This CT examination was performed using dose optimization techniques as appropriate, variously including the following: *Automated exposure control *Adjustment of mA and/or kV according to patient size (this includes techniques or standardized protocols for targeted exams where dose is matched to indication/reason for exam; i.e. extremities or head) *Use of iterative reconstruction technique Total exam dose-length product 425 mGy-cm FINDINGS: QUALITY OF STUDY/CONTRAST BOLUS: Satisfactory. PULMONARY ARTERIES: No pulmonary emboli. THORACIC AORTA: No aneurysm. LUNG: Large right posterior upper lobe consolidation and right posterior lower lobe consolidation are again noted which do not appear to be significantly changed when compared to chest x-rays of 10/31/2022 and 10/30/2022. Streaky atelectasis is noted in the lingula and right middle lobe. Mild dependent changes at the left lung base. The left lung is otherwise relatively clear. No discrete pulmonary nodules are identified. No evidence of central endobronchial filling defects. PLEURA: No pleural effusion or pneumothorax. MEDIASTINUM: Normal heart size. No pericardial effusion. No hilar or mediastinal lymphadenopathy. No evidence of septal bowing or right heart strain. Trachea and mainstem bronchi are well patent. CORONARY ARTERY CALCIFICATION: None visualized on this study. CHEST WALL/AXILLA: No axillary or internal mammary lymphadenopathy. OSSEOUS STRUCTURES: No acute or suspicious osseous abnormality. Multilevel mild degenerative changes in the spine. UPPER ABDOMEN: There is a partially visualized low-density cystic round structure measuring 2 cm medial to the posterior right hepatic lobe adjacent to the adrenal gland; the finding appears to be representing portion of the simple right renal upper pole cyst noted on the abdominal ultrasound of 10/31/2022. No reflux of contrast into the hepatic veins to suggest elevated right heart pressures. CT/CT angio chest PE protocol IMPRESSION: 1. No evidence of pulmonary embolism. 2. Large right posterior upper lobe and right lower lobe consolidations are not significantly changed when compared to previous chest x-rays of 10/31/2022. No evidence of central endobronchial filling defects. The findings are most consistent with pneumonic consolidations. Recommend close clinical follow up and of follow up imaging to ensure resolution of the process and exclude other underlying disease process. VTE: negative.
--- NOTE | ~2022-10-31 | US_ITS ---
EXAMINATION: US ABDOMEN LIMITED CLINICAL INFORMATION: Pain. COMPARISON: None available. TECHNIQUE: Real-time imaging of the right upper quadrant abdominal viscera. FINDINGS: PANCREAS: Normal. LIVER: Normal. The liver is normal in size. The liver contour is normal. Parenchymal echogenicity is normal. No focal hepatic lesion. There is no intrahepatic biliary duct dilatation seen. GALLBLADDER: Normal. The gallbladder is physiologically distended without evidence of stones, sludge, polyps, wall thickening or pericholecystic fluid. COMMON BILE DUCT: Normal in caliber measuring 0.4 cm in diameter. RIGHT KIDNEY: No hydronephrosis. No renal calculi. There is a 4.6 x 4.2 x 3.8 cm simple cyst upper pole right kidney. The kidney measures 13.3 cm in maximum dimension. FREE FLUID: None. US/US abdomen limited IMPRESSION: No gallstones or biliary dilatation. Simple cyst upper pole left kidney for which follow up is not needed.
[2022-10-31 17:27] VITALS: BP 135/59; PULSE 97; RESP 18; TEMP 37.2; O2SAT 97; BMI 33.5
--- NOTE | 2022-10-31 17:27 | ED.URI ---
HPI - URI/Sore Throat General Chief Complaint: Upper Respiratory Symptoms Stated Complaint: Fever/Vomiting/+Pneumonia Time Seen by Provider: 10/31/22 18:22 Source: patient Mode of arrival: ambulatory Limitations: no limitations History of Present Illness HPI Narrative: 52-year-old female came in for evaluation of fever, left shoulder pain, vomiting. Patient work at [employer] with occasional exposure to sick people had 1 day of fever and chills with left shoulder pain was evaluated at a walk-in clinic yesterday and chest x-ray showed right upper lung pneumonia, patient was started on Levaquin patient tolerated the 1st dose of antibiotic at home, next day patient was still having a fever tried ibuprofen and Levaquin patient started to throw up after took the medicine, patient is complaining of slight B right upper quadrant pain. No CP, no SOB, no known exposure to a sick contact, no recent travel. Related Data Previous Rx's Medication Instructions Recorded cholecalciferol (vitamin D3) 1,250 1,250 mcg PO QWEEK #14 caps 06/26/22 mcg (50,000 unit) capsule losartan 100 mg tablet 100 mg PO DAILY #90 tabs 07/11/22 hydralazine 10 mg tablet 10 mg PO BID 30 days #60 tabs 08/23/22 metoprolol succinate 100 mg 100 mg PO DAILY #90 tabs 09/06/22 tablet,extended release 24 hr spironolactone 25 mg tablet 25 mg PO DAILY #90 tabs 09/14/22 (Aldactone) atorvastatin 10 mg tablet 10 mg PO DAILY #90 tabs 10/17/22 levothyroxine 100 mcg tablet 100 mcg PO DAILY #90 tabs 10/17/22 levofloxacin 500 mg tablet 500 mg PO DAILY #7 tabs 10/30/22 tramadol 50 mg tablet 50 mg PO BID PRN pain #10 tabs 10/30/22 Allergies Allergy/AdvReac Type Severity Reaction Status Date / Time amlodipine [AMLODIPINE] Allergy Intermediate SWELLING Verified 10/31/22 17:27 OF FEET Review of Systems Review of Systems: All other systems are reviewed and are negative Constitutional: Reports as per HPI and Reports no additional constitutional complaints Eyes: Reports as per HPI and Reports no additional eye complaints Reports system reviewed and no additional complaints, except as documented Cardiovascular: Reports as per HPI and Reports no additional cardiovascular complaints Respiratory: Reports as per HPI and Reports no additional respiratory complaints Gastrointestinal: Reports as per HPI and Reports no additional gastrointestinal complaints Genitourinary: Reports no additional female genitourinary complaints Musculoskeletal: Reports no additional musculoskeletal complaints Skin/Breast: Reports system reviewed and no additional complaints, except as docu Psychiatric: Reports no additional psychiatric complaints Endocrine: Reports no additional endocrine complaints Hematologic/Lymphatic: Reports no additional hematologic/lymphatic complaints Allergic/Immunologic: Reports no additional allergic/immunologic complaints Reports system reviewed and no additional complaints, except as documented and Reports Abnormal speech present [facility] Past Medical History Medical History Class 2 severe obesity with body mass index (BMI) of 35 to 39.9 with serious comorbidity Essential hypertension High cholesterol Hypothyroidism Surgical History History of History of foot surgery History of tonsillectomy Family History Family History Mother No problems noted. Father No problems noted. 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 Blood pressure normal. Heart rate normal. Respiration rate normal. Temperature normal. Oxygen saturation normal. Appearance: Alert. Oriented X3. No acute distress. Head: Normal external exam. Normocephalic. Atraumatic. No Barajas signs noted. No raccoon eyes noted Eyes: PERRLA. EOMI. Conjunctiva and sclera normal. Eyelids normal. ENT: TM's Normal. Pharynx normal. Uvula midline. Moist mucous membranes. No trismus noted. No drooling noted. No muffled voice noted. Neck: Normal inspection. Neck supple. FROM. No adenopathy. Thyroid Normal. No meningeal signs. No neck mass noted. CVS: Normal heart rate and rhythm. Heart sound normal. No murmurs noted. Pulses normal throughout. Respiratory: No respiratory distress. Painless inspiration. Breath sounds normal. No wheezes/rales/rhonchi noted. Chest nontender. No accessory muscle usage noted or decreased air movement noted. Abdomen: Soft and nontender. Bowel sounds normal in all 4 quadrants. No distention noted. No organomegaly noted. No visible injury noted. Back: No CVA tenderness. Full range of motion noted. Skin: Skin warm and dry. Normal skin color. Normal skin turgor. No rashes/lesions/lacerations noted. Extremities: No lower extremity edema. Extremities exhibit normal range of motion. Extremities nontender. Neuro: Oriented X 3. Cranial nerve exam: II-XII are grossly intact No motor deficit. No sensory deficit. Reflexes normal. Course Course Course Narrative: RME: 52yo F w/PMHx HTN, HLD, Hypothyroid, diagnosed with PNA on outpatient CXR yesterday started on Levaquin, fever (106.9 temporally per patient), N/V w/inability to tolerate PO or meds that were prescribed. Admits sx started on Sunday. Had labs yesterday as well. States tried to take Tylenol/Motrin today but vomited everything up. 99F orally in triage, nontoxic appearing Labs, CXR, Lactic/Cx, IVF ordered Full HPI, ROS and PE to be performed by primary ED provider. Reevaluation(s) Reevaluation #1: Patient received IV fluid and Zofran still feeling nauseous/retching. Will admit the patient for IV fluids and IV antibiotic. Patient meet criteria for SIRS but no severe sepsis or septic shock. Elevated troponin will recheck Time: 21:29 Medications Administered Discontinued Medications Generic Name Dose Route Start Last Admin Trade Name Meaghan PRN Reason Stop Dose Admin Sodium Chloride 1,000 mls @ 999 mls/hr 10/31/22 17:45 10/31/22 19:30 Ns IV 10/31/22 18:45 Infused .Q1H1M KRISTINE Infusion Levofloxacin 750 mg in 150 mls @ 100 mls/hr 10/31/22 18:26 10/31/22 19:27 Levaquin IV 10/31/22 19:55 100 mls/hr ONCE ONE Administration Ondansetron HCl 4 mg 10/31/22 18:39 10/31/22 19:28 Ondansetron Hcl 4 Mg/2 Ml Vial IVPUSH 10/31/22 18:40 4 mg ONCE ONE Administration Medical Decision Making Differential Diagnosis Differential Diagnoses: The differential diagnosis associated with the presentation includes (Pneumonia, sepsis, intractable vomiting, severe dehydration, electrolyte abnormality, severe anemia.) Admission/Observation Consideration of admission/observation: Escalation of care including admission/observation considered Consult Healthcare Provider Management of the patient was discussed with: Hospitalist (Dr. Hercules.) Lab Data MDM Lab Attestation statement: I reviewed the patient's lab results. 10/31/22 17:58 10/31/22 17:58 Labs: Lab Results 10/31/22 10/31/22 10/31/22 Range/Units 17:58 17:58 17:58 WBC 14.9 H (4.8-10.8) X10*3/uL RBC 3.78 L (4.20-5.50) X10*6/uL Hgb 11.5 L (12.0-16.0) g/dl Hct 34.7 L (37.0-47.0) % MCV 91.8 (80.0-98.0) fL MCH 30.4 (27.0-33.0) pg MCHC 33.1 (31.0-35.0) g/dl RDW 13.8 (11.0-16.0) % Plt Count 291 (160-400) X10*3/uL MPV 9.4 (9.4-12.3) fL Immature Gran % (Auto) 0.7 H (0.0-0.4) % Neut % (Auto) 86.3 H (45-73) % Lymph % (Auto) 6.1 L (20-40) % [place] % (Auto) 6.4 (2-11) % Eos % (Auto) 0.2 (0-4) % Baso % (Auto) 0.3 (0-2) % Lymph # (Auto) 0.9 L (1.2-4.9) X10*3/uL [place] # (Auto) 1.0 (0.1-1.2) X10*3/uL Eos # (Auto) 0.0 (0.0-0.4) X10*3/uL Baso # (Auto) 0.0 (0.0-0.2) X10*3/uL Abs Immat Gran (auto) 0.11 H (0.00-0.03) X10*3/uL Absolute Neuts (auto) 12.9 H (2.0-8.3) x10*3/uL Absolute Nucleated RBC 0.000 (0.0-0.012) X10*3/uL Nucleated RBC % (auto) 0.0 (0.0-0.2) /100WBC Sodium 131 L (135-145) mmol/L Potassium 3.7 (3.3-5.1) mmol/L Chloride 99 (96-108) mmol/L Carbon Dioxide 22 (22-29) mmol/L Anion Gap 14 (12-20) BUN 14 (9-16) mg/dL Creatinine 0.91 (0.5-1.4) mg/dL Estim Creat Clear Calc 96.0 Estimated GFR > 60 Random Glucose 123 H (60-115) mg/dL Lactic Acid (0.5-2.0) mmol/L Calcium 9.6 (8.4-10.2) mg/dL Magnesium 2.0 (1.6-2.6) mg/dL Total Bilirubin 0.7 (0.0-1.0) mg/dL Direct Bilirubin 0.4 (0.0-0.5) mg/dL AST 22 (5-31) U/L ALT 18 (0-31) U/L Alkaline Phosphatase 90 (39-117) U/L Troponin I High Sens (<3.5-17.0) ng/L Total Protein 8.0 (6.5-8.0) g/dL Albumin 3.6 (3.5-5.0) g/dL COVID-19 (NEETU) Negative (Negative) COVID-19 Clin Com See Note Influenza Type A (IBRAHIMA) (Negative) Influenza Type B (IBRAHIMA) (Negative) Influenza A & B Note 10/31/22 10/31/22 10/31/22 Range/Units 17:58 17:58 19:17 WBC (4.8-10.8) X10*3/uL RBC (4.20-5.50) X10*6/uL Hgb (12.0-16.0) g/dl Hct (37.0-47.0) % MCV (80.0-98.0) fL MCH (27.0-33.0) pg MCHC (31.0-35.0) g/dl RDW (11.0-16.0) % Plt Count (160-400) X10*3/uL MPV (9.4-12.3) fL Immature Gran % (Auto) (0.0-0.4) % Neut % (Auto) (45-73) % Lymph % (Auto) (20-40) % [place] % (Auto) (2-11) % Eos % (Auto) (0-4) % Baso % (Auto) (0-2) % Lymph # (Auto) (1.2-4.9) X10*3/uL [place] # (Auto) (0.1-1.2) X10*3/uL Eos # (Auto) (0.0-0.4) X10*3/uL Baso # (Auto) (0.0-0.2) X10*3/uL Abs Immat Gran (auto) (0.00-0.03) X10*3/uL Absolute Neuts (auto) (2.0-8.3) x10*3/uL Absolute Nucleated RBC (0.0-0.012) X10*3/uL Nucleated RBC % (auto) (0.0-0.2) /100WBC Sodium (135-145) mmol/L Potassium (3.3-5.1) mmol/L Chloride (96-108) mmol/L Carbon Dioxide (22-29) mmol/L Anion Gap (12-20) BUN (9-16) mg/dL Creatinine (0.5-1.4) mg/dL Estim Creat Clear Calc Estimated GFR Random Glucose (60-115) mg/dL Lactic Acid 0.9 (0.5-2.0) mmol/L Calcium (8.4-10.2) mg/dL Magnesium (1.6-2.6) mg/dL Total Bilirubin (0.0-1.0) mg/dL Direct Bilirubin (0.0-0.5) mg/dL AST (5-31) U/L ALT (0-31) U/L Alkaline Phosphatase (39-117) U/L Troponin I High Sens 42.0 H (<3.5-17.0) ng/L Total Protein (6.5-8.0) g/dL Albumin (3.5-5.0) g/dL COVID-19 (NEETU) (Negative) COVID-19 Clin Com Influenza Type A (IBRAHIMA) Negative (Negative) Influenza Type B (IBRAHIMA) Negative (Negative) Influenza A & B Note See Note Independent Interpretation I performed an independent interpretation of an: Plain X-Ray (Chest 10/30/2022. Right upper lobe infiltrate) and Ultrasound (Abdominal: No gallbladder problem.) Radiology Impression Discussion of test interpretation with radiology: I have reviewed the radiologist's reading. Discharge Plan Discharge Clinical Impression: Pneumonia, Sepsis Patient Disposition: Admitted As Inpatient
[2022-10-31 17:52] VITALS: BP 142/66; PULSE 93; RESP 16; O2SAT 97
[2022-10-31 18:02] LABS: MANUAL DIFF FLAG NO
[2022-10-31 18:07] LABS: Basophils Percent Auto 0.3 % (0-2); Eosinophils Percent Auto 0.2 % (0-4); Hematocrit 34.7 % (37.0-47.0); Hemoglobin 11.5 g/dl (12.0-16.0); Imm Gran Abs Auto 0.11 X10*3/uL (0.00-0.03); Imm Gran Pct Auto 0.7 % (0.0-0.4); Lymphocytes Absolute Auto 0.9 X10*3/uL (1.2-4.9); Lymphocytes Percent Auto 6.1 % (20-40); Mean Corpuscular HGB Conc 33.1 g/dl (31.0-35.0); Mean Corpuscular Hemoglobin 30.4 pg (27.0-33.0); Mean Corpuscular Volume 91.8 fL (80.0-98.0); Mean Platelet Volume 9.4 fL (9.4-12.3); Monocytes Percent Auto 6.4 % (2-11); Neutrophils Absolute Auto 12.9 x10*3/uL (2.0-8.3); Neutrophils Percent Auto 86.3 % (45-73); Platelet Count 291 X10*3/uL (160-400); Red Blood Count 3.78 X10*6/uL (4.20-5.50); Red Cell Distribution Width 13.8 % (11.0-16.0); White Blood Count 14.9 X10*3/uL (4.8-10.8)
[2022-10-31 18:13] LABS: Lactic Acid 0.9 mmol/L (0.5-2.0)
[2022-10-31] MEDS: 0.9 % Sodium Chloride 1,000 ML 999 ML IV (18:14)
[2022-10-31 18:18] LABS: Alanine Aminotransferase 18 U/L (0-31); Albumin Level 3.6 g/dL (3.5-5.0); Alkaline Phosphatase 90 U/L (39-117); Anion Gap 14 (12-20); Aspartate Amino Transferase 22 U/L (5-31); Bilirubin Direct 0.4 mg/dL (0.0-0.5); Bilirubin Total 0.7 mg/dL (0.0-1.0); Blood Urea Nitrogen 14 mg/dL (9-16); Calcium 9.6 mg/dL (8.4-10.2); Carbon Dioxide 22 mmol/L (22-29); Chloride 99 mmol/L (96-108); Estimated Glomerular Filt Rate > 60; Glucose Random 123 mg/dL (60-115); Potassium 3.7 mmol/L (3.3-5.1); Sodium 131 mmol/L (135-145)
[2022-10-31 18:28] LABS: COVID-19 Test Negative (Negative); IDNOW Serial# 08D9AD1C; IDNOW Serial# BCCEAD1C; Influenza A Negative (Negative); Influenza B2 Negative (Negative)
--- NOTE | 2022-10-31 18:43 | ECG_ITS ---
Test Reason : left shoulder pain Blood Pressure : / mmHG Vent. Rate : 088 BPM Atrial Rate : 088 BPM P-R Int : 150 ms QRS Dur : 074 ms QT Int : 360 ms P-R-T Axes : 040 016 004 degrees QTc Int : 435 ms Normal sinus rhythm Possible Left atrial enlargement Borderline ECG When compared with ECG of 29-JAN-2020 13:42, T wave amplitude has decreased in Anterior leads Referred By: Derrick Mckinley Electronically Signed By:JOY TREVINO
--- NOTE | 2022-10-31 19:06 | PC.NURSE ---
tech in room doing ekg and drawing labs.
[2022-10-31] MEDS: levoFLOXacin/D5W 750 MG/150 ML PIGGYBACK 100 MG IV (19:27)
[2022-10-31] MEDS: ondansetron HCL 4 MG/2 ML VIAL IVPUSH (19:28)
--- NOTE | 2022-10-31 19:35 | PC.NURSE ---
medication administered per provider order.
[2022-10-31 19:36] VITALS: BP 142/77; PULSE 87; RESP 16; TEMP 37.3; O2SAT 100
--- NOTE | 2022-10-31 22:02 | PHA.MEDREC ---
Pharmacy Consult ? Medication Reconciliation Pharmacy has completed the medication reconciliation. Patient reported medications. 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 Blaire Godfrey, AyalaD
[2022-10-31 22:18] VITALS: BP 151/75; PULSE 97; RESP 20; TEMP 38.2; O2SAT 93
--- NOTE | 2022-10-31 22:20 | P.HPHOSP_ITS ---
History of Present Illness Date of Service: 10/31/22 Chief Complaint: Nausea vomiting, pneumonia 52-year-old female past medical history of hyperlipidemia, hypertension, hypothyroidism, comes into the hospital after being diagnosed with pneumonia outpatient. Patient reports that she started having fever, and cough about 2 days ago, she was seen at walk-in clinic yesterday from was diagnosed with pneumonia, and was sent home on p.o. antibiotics. Patient states that she has right shoulder pain, as well as chest pain when coughing, radiating to the back, and she developed significant nausea vomiting today which brought her to the ED. she has been having fevers of up to [id number] daily, and now that she is nauseous and vomiting has not been able to take Tylenol or ibuprofen to keep the fever down and has not been able to take her p.o. antibiotics. Therefore she can not to the hospital She otherwise denies any abdominal pain, no nausea no vomiting, has constipation, urinary symptoms and no lower extremity edema On arrival to the ED patient hemodynamically stable noted to be febrile with a fever of 100.7 Labs are significant for WBC count of 14.9, hemoglobin of 11.5, hematocrit 34.7, sodium 131, troponin of 40 to increase to 51, BNP of 102, urine negative, Patient started on IV antibiotics will be admitted for further management Review of Systems Review of Systems: Yes all other systems are reviewed and are negative [facility] Medical History Class 2 severe obesity with body mass index (BMI) of 35 to 39.9 with serious comorbidity Essential hypertension High cholesterol Hypothyroidism Family History Mother No problems noted. Father No problems noted. 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 [employer] Current occupational exposures/hazards: No Cognitive needs: No Hearing needs: No Vision needs: Yes (Glasses) Meds Allergies Allergy/AdvReac Type Severity Reaction Status Date / Time amlodipine [AMLODIPINE] Allergy Intermediate SWELLING Verified 10/31/22 17:27 OF FEET Active Medications: Current Medications Ceftriaxone Sodium 1 gm/ (Sodium Chloride) 50 mls @ 100 mls/hr IV Q24H KRISTINE Azithromycin 500 mg/ Sodium (Chloride) 250 mls @ 125 mls/hr IV Q24H KRISTINE Home Medications Medication Instructions Recorded Confirmed Last Taken Type cholecalciferol (vitamin D3) 1,250 1,250 mcg PO GILLESPIE 10/31/22 10/31/22 10/31/22 History mcg (50,000 unit) capsule Physical Exam Vital Signs and Narrative: Vital Signs: Last Vital Signs Temp 99.2 F 10/31/22 19:36 Pulse 87 10/31/22 19:36 Resp 16 10/31/22 19:36 BP 142/77 H 10/31/22 19:36 Pulse Ox 100 10/31/22 19:36 O2 Del Method Room Air 10/31/22 19:36 BMI result Body Mass Index 33.5 Const: General: cooperative and no acute distress Orientation/consciousness: patient oriented x3 Eyes: General: appearance normal, both eyes and all related structures Resp: Other: crackles Effort & Inspection: normal respiratory effort Cardio: Rate: regular rate Rhythm: regular rhythm GI: Palpation (GI): Soft to palpation Auscultation: normal bowel sounds Skin: General skin exam: no rashes or lesions noted Neuro: General: patient oriented x3 Cognition (Neuro): normal cognition Extrem: General: Yes normal to inspection and Yes no pedal edema Results Labs 10/31/22 17:58 10/31/22 17:58 Labs: Laboratory Results - last 24 hr 10/31/22 10/31/22 10/31/22 17:58 17:58 17:58 MCV 91.8 MCH 30.4 MCHC 33.1 RDW 13.8 Plt Count 291 MPV 9.4 Immature Gran % (Auto) 0.7 H Neut % (Auto) 86.3 H Lymph % (Auto) 6.1 L [place] % (Auto) 6.4 Eos % (Auto) 0.2 Baso % (Auto) 0.3 Lymph # (Auto) 0.9 L [place] # (Auto) 1.0 Eos # (Auto) 0.0 Baso # (Auto) 0.0 Abs Immat Gran (auto) 0.11 H Absolute Neuts (auto) 12.9 H Absolute Nucleated RBC 0.000 Nucleated RBC % (auto) 0.0 Anion Gap 14 Estim Creat Clear Calc 96.0 Estimated GFR > 60 Random Glucose 123 H Lactic Acid Calcium 9.6 Magnesium 2.0 Total Bilirubin 0.7 Direct Bilirubin 0.4 AST 22 ALT 18 Alkaline Phosphatase 90 Total Protein 8.0 Albumin 3.6 COVID-19 (NEETU) Negative COVID-19 Clin Com See Note Influenza Type A (IBRAHIMA) Influenza Type B (IBRAHIMA) Influenza A & B Note 10/31/22 10/31/22 17:58 17:58 MCV MCH MCHC RDW Plt Count MPV Immature Gran % (Auto) Neut % (Auto) Lymph % (Auto) [place] % (Auto) Eos % (Auto) Baso % (Auto) Lymph # (Auto) [place] # (Auto) Eos # (Auto) Baso # (Auto) Abs Immat Gran (auto) Absolute Neuts (auto) Absolute Nucleated RBC Nucleated RBC % (auto) Anion Gap Estim Creat Clear Calc Estimated GFR Random Glucose Lactic Acid 0.9 Calcium Magnesium Total Bilirubin Direct Bilirubin AST ALT Alkaline Phosphatase Total Protein Albumin COVID-19 (NEETU) COVID-19 Clin Com Influenza Type A (IBRAHIMA) Negative Influenza Type B (IBRAHIMA) Negative Influenza A & B Note See Note Imaging Radiologist's Impressions: Impressions Abdomen Ultrasound 10/31/22 18:54 IMPRESSION: No gallstones or biliary dilatation. Simple cyst upper pole left kidney for which follow up is not needed. Assessment and Plan (1) Pneumonia: Qualifiers: Pneumonia type: due to unspecified organism Laterality: right Lung location: upper lobe of lung Qualified Code(s): J18.9 - Pneumonia, unspecified organism Status: Acute (2) Intractable nausea and vomiting: Status: Acute Plan 52-year-old female past medical history of hypertension, hypothyroidism comes into the hospital with nausea vomiting, after being recently diagnosed with pneumonia and unable to tolerate p.o. intake # intractable nausea vomiting - likely in the setting of acute infection/gastroenteritis - unable to take p.o. antibiotics - started on antiemetics, IV fluids - supportive measures # community-acquired pneumonia - chest x-ray shows persistent infiltrate, unable to keep p.o. antibiotics - will start on IV antibiotics - follow cultures # HTN - Continue antihypertensives # Hypothyroidsim - Continue levothyroxine DVT ppx: eliquis given pts need for IV abx, intolerating po, pt will require 2 nights min inpatient hosp stay Time Spent With Patient Time: Total time managing care of this patient today ____ minutes. Quality Stroke Does the patient have a stroke diagnosis?: No VTE Prior VTE?: No VTE Risk Level:: Medical - moderate - high VTE Device Contraindication: Treatment Not Indicated VTE Drug Contraindication: N/A - Med Ordered
[2022-10-31 22:32] LABS: Appearance Urine Clear; Color Urine Yellow; Glucose Urine UA Negative (Negative); Leukocyte Esterase Urine Negative (Negative); Nitrite Urine Negative (Negative); Specific Gravity - Urine 1.015 (1.005-1.025); UMIC TRIGGER UACC YES; Urine Blood Small (1+) (Negative); Urine Ketones Trace mg/dL (Negative); Urine Protein 100 (2+) mg/dL (Neg-Trace)
[2022-10-31 22:34] LABS: Bacteria Urine Trace (None Seen); Hyaline Casts Urine 0-2 /LPF (0-2); UACC Culture Trigger YES
[2022-10-31] MEDS: Acetaminophen 325 MG TABLET 650 MG PO (22:39)
[2022-10-31] MEDS: Morphine Sulfate 4 MG/ML CARTRIDGE IVPUSH (22:40)
[2022-10-31] MEDS: cefTRIAXone sodium 1 GM in 0.9 % Sodium Chloride 50 ML IV (22:40)
[2022-10-31] MEDS: Lactated Ringers 1,000 ML 100 ML IVCONT (22:50)
[2022-10-31 23:03] LABS: D Dimer High Sensitivity 638 NG/ML
[2022-10-31 23:27] VITALS: BP 121/55; PULSE 89; RESP 20; TEMP 37.4; O2SAT 94
[2022-11-01] VITALS (8 sets, daily range): BP systolic 117–133; BP diastolic 48–86; PULSE 74–91; RESP 14–20; TEMP 36–37.4; O2SAT 93–97; BMI 40.0
[2022-11-01] MEDS: Azithromycin 500 MG in 0.9 % Sodium Chloride 250 ML 125 MG IV ×3 (00:50→22:42)
[2022-11-01] MEDS: Enoxaparin Sodium 40 MG/0.4 ML SYRINGE SUBCUT ×2 (00:51→22:14)
[2022-11-01] MEDS: 0.9 % Sodium Chloride Flush 3 ML SYRINGE IVFLUSH ×2 (01:07→22:15)
--- NOTE | 2022-11-01 04:00 | PC.NURSE ---
This casualty underwriter assumed care of this Pt at 0300. Pt A&Ox4, reports 7/10 shoulder pain, and 4/10 headache, Pt medicated per MAR, Fluids running per MAY. Pt ambulated to the BR independently with steady to gait.
[2022-11-01] MEDS: Acetaminophen 325 MG TABLET 650 MG PO ×3 (04:57→20:48)
[2022-11-01 05:46] LABS: Basophils Absolute Auto 0.1 X10*3/uL (0.0-0.2); Basophils Percent Auto 0.5 % (0-2); Eosinophils Absolute Auto 0.1 X10*3/uL (0.0-0.4); Eosinophils Percent Auto 0.8 % (0-4); Hematocrit 31.9 % (37.0-47.0); Hemoglobin 10.5 g/dl (12.0-16.0); Imm Gran Abs Auto 0.07 X10*3/uL (0.00-0.03); Imm Gran Pct Auto 0.5 % (0.0-0.4); Lymphocytes Absolute Auto 1.9 X10*3/uL (1.2-4.9); Lymphocytes Percent Auto 14.5 % (20-40); MANUAL DIFF FLAG SCAN; Mean Corpuscular HGB Conc 32.9 g/dl (31.0-35.0); Mean Corpuscular Hemoglobin 30.5 pg (27.0-33.0); Mean Corpuscular Volume 92.7 fL (80.0-98.0); Mean Platelet Volume 9.7 fL (9.4-12.3); Monocytes Absolute Auto 1.8 X10*3/uL (0.1-1.2); Monocytes Percent Auto 13.6 % (2-11); Neutrophils Absolute Auto 9.3 x10*3/uL (2.0-8.3); Neutrophils Percent Auto 70.1 % (45-73); Platelet Count 264 X10*3/uL (160-400); Red Blood Count 3.44 X10*6/uL (4.20-5.50); Red Cell Distribution Width 13.8 % (11.0-16.0); SCAN SMEAR FLAG 1; White Blood Count 13.2 X10*3/uL (4.8-10.8)
--- NOTE | 2022-11-01 05:58 | CA_ITS ---
Transthoracic Echocardiogram Patient (Last, First, Middle): Paige Pritchard M Gender: Female Date of : 1970 Age: 52 Procedure Date: 11/01/2022 Procedure Type: Transthoracic Echocardiogram Location: ER Height: 180.34 cm Weight: 108.86 kg BSA: 2.28 m2 Heart Rate: 83 bpm BP: 127 / 59 mmHg Educational Interpreter: MARK Referring MD: Maite Chilel MD Symptoms: A fib w RVR Study Quality: Adequate ECG Rhythm: Sinus Conclusions: - The left ventricular systolic function is normal. The calculated ejection fraction is 63% by biplane method. - No obvious valvular pathology seen on this study. - There is a small loculated pericardial effusion overlying the left ventricle. Findings Left Ventricle Normal left ventricular cavity size. There is mildly increased left ventricular wall thickness. The left ventricular systolic function is normal. The calculated ejection fraction is 63% by biplane method. There is no evidence of regional wall motion abnormalities. Evidence suggests grade I (mild) diastolic dysfunction. Right Ventricle Normal right ventricular cavity size and systolic function. Atria Both atria are normal in size. Aortic Valve There is a normal trileaflet aortic valve. There is no aortic valve stenosis. There is no aortic valve regurgitation. Mitral Valve There is mild anterior mitral leaflet thickening. There is trace mitral valve regurgitation. There is no mitral valve stenosis. Pulmonic Valve The pulmonic valve is likely normal. Tricuspid Valve There is trace tricuspid valve regurgitation. There is no evidence of pulmonary hypertension. Great Vessels The asc aorta is normal in size. Venous The inferior vena cava is normal in size and collapses greater than 50% with inspiration. Pericardium/Pleural There is a small loculated pericardial effusion overlying the left ventricle. There are no definitive echocardiographic findings of tamponade physiology. Prior Study Comparison No significant change compared to prior study dated: 06/08/2021. Recommendations, Care & Conclusions No obvious valvular pathology seen on this study. Measurements 2D Linear Measurements IVSd: 1.30 0.6-0.9/0.6-1.0 cm LVIDd: 4.50 3.9-5.3/4.2-5.9 cm LVIDd Index: 1.97 2.4-3.2/2.2-3.1 cm/m2 LVIDs: 2.70 2.0-3.6 cm LVPWd: 1.20 0.7-1.1 cm LA Diam: 4.20 2.7-3.8/3.0-4.0 cm LAIDs Index: 1.84 1.5-2.3 cm/m2 LV Mass: 261.95 67-162/88-224 g LV Mass Index: 114.89 43-95/49-115 g/m2 LVOT Diam: 1.90 3.0+(-)1.3 cm 2D Systolic Function EF 4C: 64.40 >55% EF 2C: 61.20 >55% EF BiP: 62.80 >55% Mitral Valve MV Pk E: 0.94 MV PK A: 1.18 MV Decel Time: 253.00 E/A: 0.80 E'Lateral: 8.27 E'Medial: 5.87 E/E' Med: 16.00 E/E' Lat: 11.40 PHT: 74.00 MVA PHT: 2.97 Decel Pettis: 3.71 Aortic Valve AoV Pk Andrade: 1.66 AoV Mn Andrade: 1.20 AoV VTI: 0.36 AoV Pk Grad: 11.00 Aov Mn Grad: 7.00 FATOUMATA Cont.VTI: 2.29 LVOT LVOT Pk Andrade: 1.32 LVOT Mn Andrade: 0.91 LVOT VTI: 0.29 LVOT Pk Grad: 7.00 LVOT Mn Grad: 4.00 LVOT Diam: 1.90 LVOT Area: 2.84 Diastolic Function MV Pk E: 0.94 MV Pk A: 1.18 E/A: 0.80 E'Medial: 5.87 E/E' Med: 16.00 E' Laterial: 8.27 E/E' Lat: 11.40 Right Ventricle TAPSE (mm): 28.80 TVS' Andrade: 13.40 Tricuspid Valve TR Pk Andrade: 2.25 TR Pk Grad: 20.00 RA Press: 3.00 RVSP: 23.00 Great Vessels Aorta Sinus of Valsalva: 3.60 2.0-3.5 cm Ao Asc: 3.40 2.1-3.4 cm Pulmonary Valve PV Pk Andrade: 1.15 Peak PV Grad: 5.00 Updated in Other Vendor System with Status of Final Alonso Sanchez MD electronically signed on 11/01/2022 12:29:02 PM with status of Final
[2022-11-01 06:00] LABS: Anion Gap 12 (12-20); Blood Urea Nitrogen 11 mg/dL (9-16); Calcium 9.1 mg/dL (8.4-10.2); Carbon Dioxide 22 mmol/L (22-29); Chloride 103 mmol/L (96-108); Creatinine Clr Calc Pharmacy 114.9; Estimated Glomerular Filt Rate > 60; Glucose Random 93 mg/dL (60-115); Sodium 133 mmol/L (135-145)
[2022-11-01 06:28] LABS: B Type Natriuretic Peptide 102 pg/mL (<100)
[2022-11-01 06:29] LABS: SLIDE REVIEW VERIFIED
--- NOTE | 2022-11-01 07:25 | PC.NURSE ---
IV placed LFA for CT
[2022-11-01] MEDS: iohexoL 350 MG/ML 100 ML INFUS..BTL 65 ML IV (07:42)
[2022-11-01] MEDS: Lactated Ringers 1,000 ML 100 ML IVCONT ×2 (09:26→20:46)
[2022-11-01] MEDS: Omeprazole 20 MG CAPSULE.DR PO (09:26)
--- NOTE | 2022-11-01 10:27 | P.PNIM_ITS ---
Subjective Subjective Date of Service: 11/01/22 Review of Systems Follow-up community-acquired pneumonia Still with some mild nausea No shortness of breath Physical Exam Vital Signs: Vital Signs: Last Vital Signs Temp 98.1 F 11/01/22 10:10 Pulse 76 11/01/22 10:10 Resp 19 11/01/22 10:10 BP 122/86 11/01/22 10:10 Pulse Ox 97 11/01/22 10:10 O2 Del Method Room Air 11/01/22 10:10 BMI result Body Mass Index 33.5 Appearing in no acute distress lung sounds are clear to auscultation heart regular rate rhythm, clear S1, S2 positive bowel sounds, abdomen is soft, nontender neuro patient is alert x3, no focal deficits Objective Data Active Medications Acetaminophen (Acetaminophen 325 Mg Tablet) 650 mg PO Q6H PRN PRN Reason: Pain, Mild (Pain Scale 1-3) Last Admin: 11/01/22 04:57 Dose: 650 mg Documented By: ADAN Docusate Sodium (Docusate Sodium 100 Mg Capsule) 100 mg PO DAILY PRN PRN Reason: Constipation Enoxaparin Sodium (Enoxaparin Sodium 40 Mg/0.4 Ml Syringe) 40 mg SUBCUT Q24H [facility] Last Admin: 11/01/22 00:51 Dose: 40 mg Documented By: NICOLE Ceftriaxone Sodium 1 gm/ (Sodium Chloride) 50 mls @ 100 mls/hr IV Q24H [facility] Last Infusion: 11/01/22 01:06 Dose: 0 mls/hr Documented By: NICOLE Azithromycin 500 mg/ Sodium (Chloride) 250 mls @ 125 mls/hr IV Q24H [facility] Last Infusion: 11/01/22 03:07 Dose: 0 mls/hr Documented By: ADAN Lactated Ringer's (Lr) 1,000 mls @ 100 mls/hr IVCONT .Q10H [facility] Last Admin: 11/01/22 09:26 Dose: 100 mls/hr Documented By: PASCUAL Omeprazole (Omeprazole 20 Mg Capsule.) 20 mg PO DAILY@0630 [facility] Last Admin: 11/01/22 09:26 Dose: 20 mg Documented By: PASCUAL Ondansetron HCl (Ondansetron Hcl 4 Mg/2 Ml Vial) 4 mg IVPUSH Q8H PRN PRN Reason: Nausea and Vomiting Sodium Chloride (0.9 % Sodium Chloride Flush 3 Ml Syringe) 3 ml IVFLUSH QSHIFT [facility] Last Admin: 11/01/22 09:05 Dose: Not Given Documented By: PASCUAL Non-Admin Reason: IV Running Labs 11/01/22 05:18 11/01/22 05:18 Labs: Laboratory Results - last 24 hr 10/31/22 10/31/22 10/31/22 17:58 17:58 17:58 MCV 91.8 MCH 30.4 MCHC 33.1 RDW 13.8 Plt Count 291 MPV 9.4 Immature Gran % (Auto) 0.7 H Neut % (Auto) 86.3 H Lymph % (Auto) 6.1 L [place] % (Auto) 6.4 Eos % (Auto) 0.2 Baso % (Auto) 0.3 Lymph # (Auto) 0.9 L [place] # (Auto) 1.0 Eos # (Auto) 0.0 Baso # (Auto) 0.0 Abs Immat Gran (auto) 0.11 H Absolute Neuts (auto) 12.9 H Absolute Nucleated RBC 0.000 Nucleated RBC % (auto) 0.0 Smear Tech's Comments D-Dimer High Sensitivty Anion Gap 14 Estim Creat Clear Calc 96.0 Estimated GFR > 60 Random Glucose 123 H Lactic Acid Calcium 9.6 Magnesium 2.0 Total Bilirubin 0.7 Direct Bilirubin 0.4 AST 22 ALT 18 Alkaline Phosphatase 90 B-Natriuretic Peptide Total Protein 8.0 Albumin 3.6 Urine Color Urine Appearance Urine pH Ur Specific [place] Urine Protein Urine Glucose (UA) Urine Ketones Urine Blood Urine Nitrite Ur Leukocyte Esterase Urine RBC Urine WBC Ur Squamous Epith Cells Urine Bacteria Hyaline Casts COVID-19 (NEETU) Negative COVID-19 Clin Com See Note Influenza Type A (IBRAHIMA) Influenza Type B (IBRAHIMA) Influenza A & B Note 10/31/22 10/31/22 10/31/22 17:58 17:58 22:20 MCV MCH MCHC RDW Plt Count MPV Immature Gran % (Auto) Neut % (Auto) Lymph % (Auto) [place] % (Auto) Eos % (Auto) Baso % (Auto) Lymph # (Auto) [place] # (Auto) Eos # (Auto) Baso # (Auto) Abs Immat Gran (auto) Absolute Neuts (auto) Absolute Nucleated RBC Nucleated RBC % (auto) Smear Tech's Comments D-Dimer High Sensitivty Anion Gap Estim Creat Clear Calc Estimated GFR Random Glucose Lactic Acid 0.9 Calcium Magnesium Total Bilirubin Direct Bilirubin AST ALT Alkaline Phosphatase B-Natriuretic Peptide Total Protein Albumin Urine Color Yellow Urine Appearance Clear Urine pH 6.0 Ur Specific [place] 1.015 Urine Protein 100 (2+) H Urine Glucose (UA) Negative Urine Ketones Trace Urine Blood Small (1+) H Urine Nitrite Negative Ur Leukocyte Esterase Negative Urine RBC 11-20 H Urine WBC 6-10 H Ur Squamous Epith Cells 6-10 Urine Bacteria Trace Hyaline Casts 0-2 COVID-19 (NEETU) COVID-19 Clin Com Influenza Type A (IBRAHIMA) Negative Influenza Type B (IBRAHIMA) Negative Influenza A & B Note See Note 10/31/22 11/01/22 11/01/22 22:31 05:18 05:18 MCV 92.7 MCH 30.5 MCHC 32.9 RDW 13.8 Plt Count 264 MPV 9.7 Immature Gran % (Auto) 0.5 H Neut % (Auto) 70.1 Lymph % (Auto) 14.5 L [place] % (Auto) 13.6 H Eos % (Auto) 0.8 Baso % (Auto) 0.5 Lymph # (Auto) 1.9 [place] # (Auto) 1.8 H Eos # (Auto) 0.1 Baso # (Auto) 0.1 Abs Immat Gran (auto) 0.07 H Absolute Neuts (auto) 9.3 H Absolute Nucleated RBC 0.000 Nucleated RBC % (auto) 0.0 Smear Tech's Comments VERIFIED D-Dimer High Sensitivty 638 Anion Gap 12 Estim Creat Clear Calc 114.9 Estimated GFR > 60 Random Glucose 93 Lactic Acid Calcium 9.1 Magnesium Total Bilirubin Direct Bilirubin AST ALT Alkaline Phosphatase B-Natriuretic Peptide Total Protein Albumin Urine Color Urine Appearance Urine pH Ur Specific [place] Urine Protein Urine Glucose (UA) Urine Ketones Urine Blood Urine Nitrite Ur Leukocyte Esterase Urine RBC Urine WBC Ur Squamous Epith Cells Urine Bacteria Hyaline Casts COVID-19 (NEETU) COVID-19 Clin Com Influenza Type A (IBRAHIMA) Influenza Type B (IBRAHIMA) Influenza A & B Note 11/01/22 05:18 MCV MCH MCHC RDW Plt Count MPV Immature Gran % (Auto) Neut % (Auto) Lymph % (Auto) [place] % (Auto) Eos % (Auto) Baso % (Auto) Lymph # (Auto) [place] # (Auto) Eos # (Auto) Baso # (Auto) Abs Immat Gran (auto) Absolute Neuts (auto) Absolute Nucleated RBC Nucleated RBC % (auto) Smear Tech's Comments D-Dimer High Sensitivty Anion Gap Estim Creat Clear Calc Estimated GFR Random Glucose Lactic Acid Calcium Magnesium Total Bilirubin Direct Bilirubin AST ALT Alkaline Phosphatase B-Natriuretic Peptide 102 H Total Protein Albumin Urine Color Urine Appearance Urine pH Ur Specific [place] Urine Protein Urine Glucose (UA) Urine Ketones Urine Blood Urine Nitrite Ur Leukocyte Esterase Urine RBC Urine WBC Ur Squamous Epith Cells Urine Bacteria Hyaline Casts COVID-19 (NEETU) COVID-19 Clin Com Influenza Type A (IBRAHIMA) Influenza Type B (IBRAHIMA) Influenza A & B Note Assessment and Plan (1) Intractable nausea and vomiting: Status: Acute (2) Pneumonia: Status: Acute Plan 52-year-old female past medical history of hypertension, hypothyroidism comes into the hospital with nausea vomiting, after being recently diagnosed with pneumonia and unable to tolerate p.o. intake intractable nausea vomiting likely in the setting of acute infection/gastroenteritis unable to take p.o. antibiotics started on antiemetics, IV fluids, ppi supportive measures community-acquired pneumonia Chest CTA negative for PE, large right posterior upper lobe and right lower lobe consolidations Continue Rocephin and azithromycin Follow final cultures Continue supplemental oxygen as needed HTN Continue antihypertensives Hypothyroidsim Continue levothyroxine DVT ppx: joelle Attending Dr. Mei Continue hospital stay for treatment of community-acquired pneumonia requiring IV antibiotics and antiemetics for nausea Time Spent With Patient Time: Total time managing care of this patient today ____ minutes. Quality Stroke Does the patient have a stroke diagnosis?: No VTE Prior VTE?: No VTE Risk Level:: Medical - moderate - high VTE Device Contraindication: Treatment Not Indicated VTE Drug Contraindication: N/A - Med Ordered
[2022-11-01 12:07] LABS: Adenovirus PCR Not Detected (Not Detect.); Bordetella parapertussis PCR Not Detected (Not Detect.); Bordetella pertussis PCR Not Detected (Not Detect.); Chlamydia pneumoniae PCR Not Detected (Not Detect.); Coronavirus 229E PCR Not Detected (Not Detect.); Coronavirus HKU1 PCR Not Detected (Not Detect.); Coronavirus NL63 PCR Not Detected (Not Detect.); Coronavirus OC43 PCR Not Detected (Not Detect.); Human metapneumovirus PCR Not Detected (Not Detect.); Influenza A PCR Not Detected (Not Detect.); Influenza B PCR Not Detected (Not Detect.); Mycoplasma pneumoniae PCR Not Detected (Not Detect.); Parainfluenza 1 PCR Not Detected (Not Detect.); Parainfluenza 2 PCR Not Detected (Not Detect.); Parainfluenza 3 PCR Not Detected (Not Detect.); Parainfluenza 4 PCR Not Detected (Not Detect.); RSV PCR Not Detected (Not Detect.); Rhino/Enterovirus PCR Not Detected (Not Detect.); SARS-CoV-2 PCR Not Detected (Not Detect.)
--- NOTE | 2022-11-01 14:15 | MHC.CM.PN ---
Met with patient in regards to discharge planning. Patient lives with her sig other Howie and her daughter, ambulates independently and had no services prior to coming to the hospital. No services anticipated to be needed because patient is not homebound. PCP verified. Patient denies having a HCP. Information provided. Patient not interested in completing one at this time. Patient has received 3 Pfizer vaccines. Howie will transport patient home when medically stable. Continue to monitor for d/c needs.
--- NOTE | 2022-11-01 15:40 | PC.NURSE ---
Patient called needing to use the restroom. Fluids paused and patient able to walk to bathroom independently without issue. Patient breathing evenly and no s/s of distress noted at this time.
[2022-11-01] MEDS: cefTRIAXone sodium 1 GM in 0.9 % Sodium Chloride 50 ML IV (22:07)
[2022-11-02 04:00] VITALS: BP 138/66; PULSE 75; RESP 18; TEMP 36.6; O2SAT 96
[2022-11-02] MEDS: Losartan Potassium 50 MG TABLET 100 MG PO (06:37)
[2022-11-02] MEDS: Levothyroxine Sodium 100 MCG TABLET PO (06:37)
[2022-11-02] MEDS: Metoprolol Succinate ER 100 MG TAB.ER.24H PO (06:37)
[2022-11-02] MEDS: Atorvastatin Calcium 10 MG TABLET PO (06:37)
[2022-11-02] MEDS: Spironolactone 25 MG TABLET PO (06:37)
[2022-11-02] MEDS: Omeprazole 20 MG CAPSULE.DR PO (06:37)
[2022-11-02] MEDS: hydrALAZINE HCl 10 MG TABLET PO (06:40)
[2022-11-02 07:47] VITALS: BP 139/67; PULSE 69; RESP 19; TEMP 36.1; O2SAT 95
[2022-11-02] MEDS: Lactated Ringers 1,000 ML 100 ML IVCONT (08:40)
--- NOTE | 2022-11-02 11:42 | P.DS_ITS ---
DS: Providers Provider Date of Service: 11/02/22 Date of admission: 10/31/22 22:18 Date of discharge: 11/02/22 Primary care physician: Bridger Marr [facility] Attending physician on discharge: Benny Mei Discharging clinician: Ariadne Ziegler DS: Diagnosis Discharge Diagnosis (1) Pneumonia: Status: Acute (2) Intractable nausea and vomiting: Status: Acute DS: Summary Hospital Course Hospital Course: From H&P on day of admission 52-year-old female past medical history of hyperlipidemia, hypertension, hypothyroidism, comes into the hospital after being diagnosed with pneumonia outpatient.? Patient reports that she started having fever, and cough about 2 days ago, she was seen at walk-in clinic yesterday from was diagnosed with pneumonia, and was sent home on p.o. antibiotics.? Patient states that she has right shoulder pain, as well as chest pain when coughing, radiating to the back, and she developed significant nausea vomiting today which brought her to the ED. she has been having fevers of up to [id number] daily, and now that she is nauseous and vomiting has not been able to take Tylenol or ibuprofen to keep the fever down and has not been able to take her p.o. antibiotics.? Therefore she can not to the hospital She otherwise denies any abdominal pain, no nausea no vomiting, has constipation, urinary symptoms and no lower extremity edema On arrival to the ED patient hemodynamically stable noted to be febrile with a fever of 100.7 Labs are significant for WBC count of 14.9, hemoglobin of 11.5, hematocrit 34.7, sodium 131, troponin of 40 to increase to 51, BNP of 102, urine negative, Patient started on IV antibiotics will be admitted for further management Patient was diagnosed with pneumonia as an outpatient but due to intractable nausea and vomiting she was unable to tolerate oral antibiotics. For this reason she was admitted to the hospital. She was started on IV ceftriaxone and azithromycin to continue her treatment for pneumonia. She underwent CTA which showed evidence of right posterior upper lobe and right lower lobe consolidations not significantly changed when compared to previous x-ray from October 31. She was treated symptomatically for nausea and vomiting. abdominal ultrasound showed no evidence of gallstones or biliary dilatation. Nausea vomiting improved she is currently tolerating a regular diet. She has remained afebrile for the past 48 hours and leukocytosis is trending down. Blood cultures have remained negative. She is not requiring supplemental oxygen and is stable for return home. Urine culture is pending at the time of discharge upper patient denies any urinary symptoms and antibiotics for pneumonia would cover possible urinary pathogen. Recommend outpatient follow up with PCP and repeat imaging in the near future to ensure resolution of infection. Time Spent with Patient Time attestation: Total time managing care of this patient today ____ minutes. Discharge coordination time: Greater than 30 minutes Quality: Safe Use of Opioids Does Pt have an Active Cancer Diagnosis on the Problem List?: No Quality: Stroke Does the patient have a stroke diagnosis?: No Physical Exam Vital Signs: Vital Signs: Last Vital Signs Temp 97.0 F 11/02/22 07:47 Pulse 69 11/02/22 07:47 Resp 19 11/02/22 07:47 BP 139/67 11/02/22 07:47 Pulse Ox 95 11/02/22 07:47 O2 Del Method Room Air 11/02/22 07:47 BMI result Body Mass Index 40.0 Const: General: cooperative, comfortable, no acute distress, alert and awake Nutritional Appearance: overweight Orientation/consciousness: patient oriented x3 Resp: Effort & Inspection: normal respiratory effort, able to speak in complete sentences, no respiratory distress and no use of accessory muscles Cardio: Rate: regular rate GI: Inspection: No distended Palpation (GI): Soft to palpation Neuro: General: patient oriented x3, moves all extremities and CN's II-XI intact bilaterally Extrem: General: Yes no pedal edema DS: Data Data Completed and Pending Labs on day of discharge: Laboratory Results - last 24 hr 11/01/22 04:51 Respiratory Panel Hughes See Note Adenovirus (Rapid PCR) Not Detected B.pert (TEM-PCR) Not Detected B.parapertussis DNA PCR Not Detected C. pneumoniae DNA (PCR) Not Detected Coronavirus OC43 (PCR) Not Detected Coronavirus HKU1 (PCR) Not Detected Coronavirus 229E (PCR) Not Detected Coronavirus NL63 (PCR) Not Detected Human Metapneumovir PCR Not Detected Influenza A (RT-PCR) Not Detected Influenza B (RT-PCR) Not Detected M. pneumoniae (PCR) Not Detected Parainfluenza 1 (PCR) Not Detected Parainfluenza 2 (PCR) Not Detected Parainfluenza 3 (PCR) Not Detected Parainfluenza 4 (PCR) Not Detected RSV (PCR) Not Detected Entero/Rhino (PCR) Not Detected SARS-CoV-2 RNA (RT-PCR) Not Detected Preliminary micro results at discharge 10/31/22 18:12 Blood Culture - Preliminary Blood - Venous No growth after 24 hours. 10/31/22 17:58 Blood Culture - Preliminary Blood - Venous No growth after 24 hours. Discharge Plan Discharge Anticipated Discharge Date/Time: 11/02/22 11:27 Patient Disposition: Home, Self-Care Discharge Diagnosis: pneumonia intractable nausea and vomiting Referrals: Bridger Marr, [facility] [Primary Care Provider] - 1 Week Discharge Medications: New cefuroxime axetil 500 mg tablet 500 mg PO BID 5 Days Qty: 10 0RF azithromycin 250 mg tablet 250 mg PO DAILY 5 Days Qty: 5 0RF Continued losartan 100 mg tablet 100 mg PO DAILY Qty: 90 1RF hydralazine 10 mg tablet 10 mg PO BID 30 Days Qty: 60 2RF metoprolol succinate 100 mg tablet extended release 24 hr 100 mg PO DAILY Qty: 90 1RF spironolactone [Aldactone] 25 mg tablet 25 mg PO DAILY Qty: 90 1RF atorvastatin 10 mg tablet 10 mg PO DAILY Qty: 90 1RF levothyroxine 100 mcg tablet 100 mcg PO DAILY Qty: 90 1RF cholecalciferol (vitamin D3) 1,250 mcg (50,000 unit) capsule 1,250 mcg PO [place] tramadol 50 mg tablet 50 mg PO BID PRN (Reason: pain) Qty: 10 0RF Discontinued levofloxacin 500 mg tablet 500 mg PO DAILY Qty: 7 0RF Discharge Orders: Discharge Order (Routine); Ordered 11/02/22 Ordered By: Ariadne Ziegler Activity on Discharge: As tolerated Stand Alone Forms: Patient Portal Discharge page Care Plan Goals: resolution of pneumonia Health Concerns: pneumonia intractable nausea and vomiting Plan of Treatment: complete course of antibiotics for pneumonia as prescribed - stop taking levaquin call to schedule outpatient follow up with PCP consider repeat imaging to ensure resolution of infection - has repeat CXR ordered by outpatient provider scheduled for next week Assessment: pneumonia
--- NOTE | 2022-11-02 11:53 | MHC.CM.PN ---
DP: PT HAS BEEN MEDICALLY CLEARED FOR DC HOME, NO SERVICES. PT HAS OWN RIDE HOME.
== END 2022-11-02 12:45 | disposition home or self-care (01) | DRG 195 ==
LOC: HO.ED 21:28 → HO.EDOVER 22:24 → HO.S3 11-01 14:31
PROVIDERS: Physician Assistant; Admitting Provider Internal Medicine; Emergency Provider Emergency Medicine; PCP Nurse Practitioner Family; Visit Provider Physician Assistant Medical
DX: J18.9 Pneumonia, unspecified organism (principal); E78.00 Pure hypercholesterolemia, unspecified; I10 Essential (primary) hypertension; E03.9 Hypothyroidism, unspecified; K52.9 Noninfective gastroenteritis and colitis, unspecified; Z87.891 Personal history of nicotine dependence; Z20.822 Contact with and (suspected) exposure to COVID-19; Z79.890 Hormone replacement therapy; Z79.899 Other long term (current) drug therapy
CPT/HCPCS: 36415; 71045; 71275; 76705; 80048; 80076; 81001; 83605; 83735; 83880; 84484; 85025; 85379; 87040; 87086; 87502; 87633; 87635; 93005; 93306; 99285; J0456; J0696; J1650; J1956; J2270; J2405; Q9957; Q9967

== ENCOUNTER 2022-10-31 22:18 | Outpatient (BNV) | payer OTHER, SELFPAY | END 2022-11-01 05:58 | PROVIDERS: Admitting Provider Internal Medicine; Emergency Provider Emergency Medicine; PCP Nurse Practitioner Family; Visit Provider Internal Medicine | DX: I31.39 Other pericardial effusion (noninflammatory) (principal) | CPT/HCPCS: 93306 ==

== ENCOUNTER → 2022-10-31 22:18 | Outpatient (BNV) | payer OTHER, SELFPAY | PROVIDERS: Admitting Provider Internal Medicine; Emergency Provider Emergency Medicine; PCP Nurse Practitioner Family; Visit Provider Internal Medicine | DX: J18.9 Pneumonia, unspecified organism (principal); R11.2 Nausea with vomiting, unspecified | CPT/HCPCS: 99223; 99232; 99239 ==

== ENCOUNTER 2022-11-09 14:05 | Outpatient (REF) | payer OTHER, SELFPAY ==
--- NOTE | ~2022-11-09 | XR_ITS ---
EXAMINATION: XR CHEST CLINICAL INFORMATION: Pneumonia. COMPARISON: Chest radiograph dated 10/31/2022. TECHNIQUE: 2 views of the chest were obtained. FINDINGS: There has been near complete resolution of the previously seen right upper lobe infiltrate with mild residual linear markings. The left lung is clear. The heart and mediastinal structures are unremarkable. XR/XR chest 2V IMPRESSION: Near-complete resolution of right orbital lobe infiltrate with mild residual markings.
== END 2022-11-09 14:06 | disposition home or self-care (01) ==
LOC: HO.HMGCX 14:05
PROVIDERS: PCP Nurse Practitioner Family; Visit Provider Nurse Practitioner Family
DX: J18.9 Pneumonia, unspecified organism (principal)
CPT/HCPCS: 71046

== ENCOUNTER 2023-01-08 08:51 | Outpatient (AMB) | payer OTHER, SELFPAY ==
--- NOTE | 2023-01-08 08:55 | MHC.PC.OV ---
Vital Signs 01/08/23 09:00 Height 5 ft 11 in Weight 278 lb BMI 38.8 BP 110/78 Blood Pressure Location Rt brachial Position Sitting Pulse 55 Pulse Source Pulse Oximeter Pulse Oximetry (%) 96 Oxygen Delivery Method Room Air Intake Visit Reasons: Annual PE Intake Note: Pap and mammo at [facility] [place] done in october. Allergies amlodipine [AMLODIPINE] Allergy (Intermediate, Verified 01/08/23 09:00) SWELLING OF FEET Medication List - Last Reconciled 01/08/23 by MILTON Weaver atorvastatin 20 mg PO DAILY cholecalciferol (vitamin D3) 1,250 mcg PO QWEEK hydralazine 10 mg PO BID levothyroxine 100 mcg PO DAILY losartan 100 mg PO DAILY metoprolol succinate ER 100 mg PO DAILY spironolactone (Aldactone) 25 mg PO DAILY Tobacco use date assessed: 09/06/22 Dental Screening Dental Screen Date: 01/08/23 Did you have a dental visit in the last 12 months?: Yes Did you have a dental problem in the last 6 months where you did not have access to dental care?: No Was dental information given to patient?: Patient has dentist HPI Annual PE HPI Details Pt is here for a PE. Labs have already been ordered. Mammo is up to date. 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 Pt reports having a colonoscopy within the last 3 years. Will track this down. Hx of vitamin D deficiency, will order labs. [facility] Medical History Class 2 severe obesity with body mass index (BMI) of 35 to 39.9 with serious comorbidity Essential hypertension High cholesterol Hypothyroidism Surgical History History of tonsillectomy History of foot surgery History of Family History Mother No problems noted. Father No problems noted. 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 How often do you have a drink containing alcohol?: Never 3. How often do you have six or more drinks on one occasion?: Never Total Score: 0 Score Reviewed/Action Taken: No AARON-7 AMB Questionnaire AARON-7 Date AARON - 7 assessed: 02/14/22 Source: Developed by Drs. Lul Hackett, Sharon Barrera, Onesimo Waller and colleagues, with an educational ozzie from [employer]. Review of Systems Const Denies chills and Denies fever(s) Eyes Denies blurry vision ENT Denies vertigo, Denies dizziness and Denies sore throat Card Denies chest pain at rest, Denies chest pain with activity, Denies diaphoresis, Denies dyspnea and Denies dyspnea on exertion Resp Denies cough, Denies dyspnea, Denies dyspnea on exertion and Denies wheezing GI Denies abdominal pain, Denies melena, Denies hematochezia, Denies constipation, Denies diarrhea and Denies loose stools Denies hematuria Musc Denies numbness and Denies tingling Skin/Breast Denies lesions Neuro Denies vertigo, Denies dizziness, Denies numbness and Denies tingling Psych Denies anxiety, Denies depression, Denies homicidal ideation, Denies suicidal ideation and Denies other (substance abuse) Aller/Immun Denies wheezing Physical exam (Primary Care) Vital Signs: Last Vital Signs Pulse 55 01/08/23 09:00 BP 110/78 01/08/23 09:00 Pulse Ox 96 01/08/23 09:00 Oxygen Delivery Method Room Air 01/08/23 09:00 BMI result Body Mass Index 38.8 Tobacco/Smoking Status: Tobacco use Status Tobacco use date assessed 09/06/22 01/08/23 08:56 Patient Tobacco Use Status Former Tobacco user 01/08/23 08:56 e-Cigarette/Vaping Use Never Used 01/08/23 08:56 Thrive Assessment: Date of Thrive Assessment Date Thrive assessed 11/01/22 01/08/23 08:56 Const General: cooperative Nutritional Appearance: obese Orientation/consciousness: patient oriented x3 HENMT Head: Yes normal to inspection, Yes normocephalic and Yes atraumatic Ears: TM's normal bilaterally Eyes General: appearance normal, both eyes and all related structures Alignment and Position: alignment normal and position normal Neck Neck: Yes normal visual inspection and Yes no lymphadenopathy Thyroid: Thyroid normal Resp Effort & Inspection: normal respiratory effort Auscultation: clear to auscultation bilaterally Cardio Rate: regular rate Rhythm: regular rhythm Heart sounds: S1 normal heart sound present, S2 normal heart sound present and no murmurs GI Palpation (GI): Soft to palpation and nontender Auscultation: normal bowel sounds Skin Rashes: no rashes Neuro General: patient oriented x3, moves all extremities, no focal motor deficits and deep tendon reflexes 2+ bilaterally Romberg Test: Negative Psych Appearance: grossly normal Mental Status: mental status grossly normal Speech and movement: Normal speech and movement present Affect: normal affect Attitude: cooperative Thought process: Normal thought process present Thought content: Normal thought content present Insight: Good insight present (Psych) Judgement: Good judgement present (Psych) Assessment and Plan Assessment & Plan (1) Physical exam: Code(s): Z00.00 - Encounter for general adult medical examination without abnormal findings Plan: Labs already ordered (2) Vitamin D deficiency: Code(s): E55.9 - Vitamin D deficiency, unspecified Plan: Vitamin D ordered Plan The patient agreed to the use of a medical and health services manager for this encounter. Scribed for MILTON Juan by Georgina Zavala medical and health services manager, on 01/08/2023 at 09:15 EST. Orders: Orders Vitamin D 25-OH (D2 and D3) Today E55.9 - Vitamin D deficiency, unspecified, Z00.00 - Encounter for general adult medical examination without abnormal findings Medications: New fluticasone propionate 50 mcg/actuation (Allergy Relief (fluticasone)) administer into each nostril 1 spray intranasal BID 16 grams 1RF Coding Level of Care Code Est Pt Prev Care 40-64y(68367) Diagnoses Physical exam Z00.00 Vitamin D deficiency E55.9
[2023-01-08 09:00] VITALS: BP 110/78; PULSE 55; O2SAT 96; BMI 38.8
== END 2023-01-08 09:30 | disposition home or self-care (01) ==
PROVIDERS: PCP Nurse Practitioner Family; Visit Provider Nurse Practitioner Family
DX: Z00.00 Encounter for general adult medical examination without abnormal findings (principal); E55.9 Vitamin D deficiency, unspecified
CPT/HCPCS: 99396

== ENCOUNTER 2023-05-03 10:04 | Outpatient (AMB) | payer OTHER, SELFPAY ==
[2023-05-03 10:57] VITALS: BP 118/70; PULSE 65; TEMP 36.5; O2SAT 95
--- NOTE | 2023-05-03 10:57 | AM.OFFWIN_ITS ---
Intake Vital Signs 05/03/23 10:57 Height 5 ft 11 in BMI Reason not done Patient refused/unable BP 118/70 Blood Pressure Location Lt brachial Position Sitting Pulse 65 Pulse Source Pulse Oximeter Temp 97.7 F Temp Source Temporal Artery Scan Pulse Oximetry (%) 95 Oxygen Delivery Method Room Air Intake Visit Reasons: EP Lft foot pain Intake Note: pt is here today for lft foot pain started today Patient Tobacco Use Status: Former Tobacco user Allergies amlodipine [AMLODIPINE] Allergy (Intermediate, Verified 05/03/23 10:57) SWELLING OF FEET Do you need a note to return to daycare/school/sports/work: Yes HPI HPI Comments History of Present Illness Details 53 y/o female patient who presents to [facility] in clinic with c/o left foot pain that started today. H/o Achilles Tendinitis and sees [facility]. Reports pain worse with standing or walking. [facility] Medical History Class 2 severe obesity with body mass index (BMI) of 35 to 39.9 with serious comorbidity Essential hypertension High cholesterol Hypothyroidism Surgical History History of tonsillectomy History of foot surgery History of Family History Mother No problems noted. Father No problems noted. 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[employer] Current occupational exposures/hazards: No Cognitive needs: No Hearing needs: No Vision needs: Yes (Glasses) Review of Systems Const All systems reviewed & are unremarkable except as noted in HPI and below Physical Exam Vital Signs: Last Vital Signs Temp 97.7 F 05/03/23 10:57 Pulse 65 05/03/23 10:57 BP 118/70 05/03/23 10:57 Pulse Ox 95 05/03/23 10:57 Oxygen Delivery Method Room Air 05/03/23 10:57 Const General: no acute distress Orientation/consciousness: patient oriented x3 Neuro General: patient oriented x3 and no focal motor deficits Extrem General: Yes normal to inspection and Yes full ROM Left lower extremity: normal to inspection, full ROM, normal capillary refill, no joint enlargement, lower leg Details: normal to inspection, tenderness Location: of the distal fibula and no edema; no erythema and foot Details: normal capillary refill, normal to inspection, tenderness Location: of the calcaneus, toes with normal ROM and motor-sensory exam (normal); no edema, no abrasions and no ecchymosis; no cyanosis and no edema Assessment & Plan Assessment & Plan (1) Achilles tendinitis of left lower extremity: Code(s): M76.62 - Achilles tendinitis, left leg Plan: - F/u With [facility] - Rest the foot - Wear the Ortho Boot given by [facility] - Naproxen for pain relief - Xray to r/o Fx Orders: Orders XR foot LT 2V Today M76.62 - Achilles tendinitis, left leg Medications: New naproxen 500 mg PO BID 30 tabs 0RF M76.62 - Achilles tendinitis, left leg Coding Level of Care Code Est Pt Level 3 (06896) Diagnoses Achilles tendinitis of left lower extremity M76.62 Time Spent (min) 15
== END 2023-05-03 12:06 | disposition home or self-care (01) ==
PROVIDERS: PCP Nurse Practitioner Family; Visit Provider Nurse Practitioner Family
DX: M76.62 Achilles tendinitis, left leg (principal)
CPT/HCPCS: 99213

== ENCOUNTER 2023-05-03 11:39 | Outpatient (REF) | payer OTHER, SELFPAY ==
--- NOTE | ~2023-05-03 | XR_ITS ---
EXAMINATION: XR FOOT, LEFT CLINICAL INFORMATION: Left foot pain, Achilles tendinitis COMPARISON: None available. TECHNIQUE: AP, lateral, and oblique views of the left foot. FINDINGS: BONES: Bony structures are intact. Multiple small fragmented calcifications are seen at the insertion of left Achilles tendon. Fragmented plantar calcaneal spur is also present. There is no focal bone destruction or periosteal reaction seen. JOINTS: Alignment of joints is normal. SOFT TISSUE: Soft tissue is normal. No radiopaque foreign body or abnormal air collection is seen. XR/XR foot LT 2V IMPRESSION: 1. Findings could be compatible with left Achilles calcific tendinitis, plantar fasciitis. 2. No fracture or dislocation or signs of osteomyelitis are found.
== END 2023-05-03 11:40 | disposition home or self-care (01) ==
LOC: HO.HMGCX 11:39
PROVIDERS: PCP Nurse Practitioner Family; Visit Provider Nurse Practitioner Family
DX: M76.62 Achilles tendinitis, left leg (principal); M79.672 Pain in left foot
CPT/HCPCS: 73620

== ENCOUNTER 2023-07-07 06:35 | Outpatient (REF) | payer OTHER, SELFPAY ==
[2023-07-07 11:39] LABS: MANUAL DIFF FLAG NO
[2023-07-07 11:49] LABS: Basophils Absolute Auto 0.1 X10*3/uL (0.0-0.2); Basophils Percent Auto 0.8 % (0-2); Eosinophils Absolute Auto 0.4 X10*3/uL (0.0-0.4); Eosinophils Percent Auto 4.3 % (0-4); Hematocrit 39.3 % (37.0-47.0); Imm Gran Abs Auto 0.03 X10*3/uL (0.00-0.03); Imm Gran Pct Auto 0.3 % (0.0-0.4); Lymphocytes Absolute Auto 2.3 X10*3/uL (1.2-4.9); Lymphocytes Percent Auto 24.1 % (20-40); Mean Corpuscular HGB Conc 33.1 g/dl (31.0-35.0); Mean Corpuscular Hemoglobin 30.7 pg (27.0-33.0); Mean Corpuscular Volume 92.7 fL (80.0-98.0); Mean Platelet Volume 10.8 fL (9.4-12.3); Monocytes Absolute Auto 0.8 X10*3/uL (0.1-1.2); Monocytes Percent Auto 8.5 % (2-11); Platelet Count 284 X10*3/uL (160-400); Red Blood Count 4.24 X10*6/uL (4.20-5.50); White Blood Count 9.7 X10*3/uL (4.8-10.8)
[2023-07-07 11:55] LABS: Appearance Urine Clear; Color Urine Yellow; Glucose Urine UA Negative (Negative); Leukocyte Esterase Urine Negative (Negative); Nitrite Urine Negative (Negative); Specific Gravity - Urine 1.025 (1.005-1.025); Urine Blood Negative (Negative); Urine Ketones Negative (Negative); Urine Protein Negative (Neg-Trace)
[2023-07-07 12:24] LABS: Alanine Aminotransferase 16 U/L (0-31); Albumin Level 4.2 g/dL (3.5-5.0); Alkaline Phosphatase 74 U/L (39-117); Anion Gap 12 (12-20); Aspartate Amino Transferase 22 U/L (5-31); Bilirubin Total 0.4 mg/dL (0.0-1.0); Blood Urea Nitrogen 22 mg/dL (9-16); Calcium 10.2 mg/dL (8.4-10.2); Carbon Dioxide 27 mmol/L (22-29); Chloride 107 mmol/L (96-108); Cholesterol 168 mg/dL (<200); Estimated Glomerular Filt Rate > 60; Glucose Fasting 93 mg/dL (60-99); HDL Cholesterol 51 mg/dL (>40); LDL Cholesterol Calculated 100 mg/dL (<100); Potassium 4.2 mmol/L (3.3-5.1); Sodium 142 mmol/L (135-145); TSH reflex Free T4 3.09 uIU/mL (0.32-4.0); Total Protein 8.4 g/dL (6.5-8.0); Triglycerides 85 mg/dL (<150); Vitamin D 25-OH Total 22.3 ng/mL (>30)
[2023-07-07 12:34] LABS: Cortisol Random 15.3 ug/dL
[2023-07-11 13:34] LABS: Vitamin D 25-OH, D2 <4 ng/mL; Vitamin D 25-OH, D3 64 ng/mL; Vitamin D 25-OH, Total 64 ng/mL (30-100)
== END 2023-07-07 06:36 | disposition home or self-care (01) ==
LOC: HO.HMGCLDS 06:35
PROVIDERS: PCP Nurse Practitioner Family; Visit Provider Nurse Practitioner Family
DX: Z00.00 Encounter for general adult medical examination without abnormal findings (principal); E55.9 Vitamin D deficiency, unspecified; E66.01 Morbid (severe) obesity due to excess calories
CPT/HCPCS: 36415; 80053; 80061; 81003; 82306; 82533; 84443; 85025

== ENCOUNTER 2023-07-17 08:22 | Outpatient (AMB) | payer OTHER, SELFPAY ==
--- NOTE | 2023-07-17 08:25 | MHC.PC.OV ---
Vital Signs 07/17/23 08:28 Height 5 ft 11 in Weight 288 lb BMI 40.2 BP 118/80 Blood Pressure Location Lt brachial Position Sitting Intake Visit Reasons: 6M follow up Intake Note: Patient here to follow up on labs. Allergies amlodipine [AMLODIPINE] Allergy (Intermediate, Verified 07/17/23 08:28) SWELLING OF FEET Medication List - Last Reconciled 07/17/23 by MILTON Weaver atorvastatin 10 mg PO DAILY cholecalciferol (vitamin D3) 1,250 mcg PO QWEEK hydralazine 10 mg PO BID levothyroxine 100 mcg PO DAILY losartan 100 mg PO DAILY metoprolol succinate ER 100 mg PO DAILY naproxen 500 mg PO BID spironolactone (Aldactone) 25 mg PO DAILY Tobacco use date assessed: 07/17/23 Dental Screening Dental Screen Date: 07/17/23 Did you have a dental visit in the last 12 months?: Yes Did you have a dental problem in the last 6 months where you did not have access to dental care?: No Was dental information given to patient?: Patient has dentist HPI 6M follow up HPI Details Pt c/o bilat foot pain (left>right). She also reports pain to her achilles regions. Previous XR showed left Achilles calcific tendinitis and plantar fasciitis. Pt has seen [facility] and gone to PT. Will refer to podiatry. Denies fever, chills, and dizziness. Family Hx of cardiac disease. NO ongoing CP, SOB. Will get a ekg today and stress test. Pt is also morbidly obese. [facility] Medical History Hypothyroidism High cholesterol Class 2 severe obesity with body mass index (BMI) of 35 to 39.9 with serious comorbidity Essential hypertension Surgical History History of tonsillectomy History of foot surgery History of Family History Mother No problems noted. Father No problems noted. 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[employer] Current occupational exposures/hazards: No Cognitive needs: No Hearing needs: No Vision needs: Yes (Glasses) Questionnaire Thrive Questionnaire Date Thrive assessed: 11/01/22 I am a: Patient What is your living situation today?: I have a steady place to live Within the past 12 months, did the food you bought not last and you didn't have the money to get more?: Never true Within the past 12 months, did you worry whether your food would run out before you got money to buy more?: Never true Please select the resources that you would like help with: None THRIVE Score: 0 AUDIT C Alcohol Use Questionnaire (AUDIT-C) 1. How often do you have a drink containing alcohol?: Monthly or less 2. How many drinks containing alcohol do you have on a typical day when you are drinking?: 1 or 2 3. How often do you have six or more drinks on one occasion?: Never Total Score: 1 AARON-7 AMB Questionnaire AARON-7 Date AARON - 7 assessed: 02/14/22 Feeling nervous, anxious, or on edge: 1 = Several days Not being able to stop or control worryin = More than half the days Worrying too much about different things: 2 = More than half the days Trouble relaxin = More than half the days Being so restless that it is hard to sit still: 1 = Several days Becoming easily annoyed or irritable: 3 = Nearly every day Feeling afraid as if something awful might happen: 1 = Several days Total AARON-7 score (0-4 normal; 5-9 mild; 10-14 moderate; 15-21 severe): 12 Source: Developed by Drs. Lul Hackett, Sharon Barrera, Onesimo Waller and colleagues, with an educational ozzie from [employer] Review of Systems Const Reports as per HPI Physical exam (Primary Care) Vital Signs: Last Vital Signs BP 118/80 07/17/23 08:28 BMI result Body Mass Index 40.2 Tobacco/Smoking Status: Tobacco use Status Tobacco use date assessed 07/17/23 07/17/23 08:31 Patient Tobacco Use Status Former Tobacco user 07/17/23 08:25 e-Cigarette/Vaping Use Never Used 07/17/23 08:25 Thrive Assessment: Date of Thrive Assessment Date Thrive assessed 11/01/22 07/17/23 08:25 Const General: cooperative Nutritional Appearance: obese Orientation/consciousness: patient oriented x3 Resp Effort & Inspection: normal respiratory effort Auscultation: clear to auscultation bilaterally Cardio Rate: regular rate Rhythm: regular rhythm Heart sounds: S1 normal heart sound present and S2 normal heart sound present Neuro General: patient oriented x3 Extrem Other: with dorsi flexion of left foot tenderness noted to achilles, pain exacerbated with dorsi flexion of toes and palpation of heel Psych Appearance: grossly normal Mental Status: mental status grossly normal Speech and movement: Normal speech and movement present Affect: normal affect Attitude: cooperative Thought process: Normal thought process present Thought content: Normal thought content present Insight: Good insight present (Psych) Judgement: Good judgement present (Psych) Assessment and Plan Assessment & Plan (1) Morbid obesity: Code(s): E66.01 - Morbid (severe) obesity due to excess calories Plan: encouraged weight loss, portion sizes, better diet, more exercise. (2) Family history of heart disease: Code(s): Z82.49 - Family history of ischemic heart disease and other diseases of the circulatory system Plan: stress testing ordered, EKG in office today (3) Achilles tendinitis: Code(s): M76.60 - Achilles tendinitis, unspecified leg Plan: referred to podiatry (4) Plantar fasciitis: Code(s): M72.2 - Plantar fascial fibromatosis (5) Family history of heart disease: Code(s): Z82.49 - Family history of ischemic heart disease and other diseases of the circulatory system (6) Obesity (BMI 30-39.9): Code(s): E66.9 - Obesity, unspecified Plan The patient agreed to the use of a medical leader for this encounter. Scribed for MILTON Juan by Georgina Zavala medical leader, on 07/17/2023 at 08:40 EST. Orders: Orders NM cardiolite stress test Today E66.01 - Morbid (severe) obesity due to excess calories, Z82.49 - Family history of ischemic heart disease and other diseases of the circulatory system CA stress test Today E66.01 - Morbid (severe) obesity due to excess calories, Z82.49 - Family history of ischemic heart disease and other diseases of the circulatory system AMB EKG-In Office Today E66.9 - Obesity, unspecified, Z82.49 - Family history of ischemic heart disease and other diseases of the circulatory system Referrals Podiatry Referral M72.2 - Plantar fascial fibromatosis, M76.60 - Achilles tendinitis, unspecified leg Coding Level of Care Code Est Pt Level 3 (86443) Diagnoses Morbid obesity E66.01 Family history of heart disease Z82.49 Achilles tendinitis M76.60 Plantar fasciitis M72.2 Obesity (BMI 30-39.9) E66.9
[2023-07-17 08:28] VITALS: BP 118/80; BMI 40.2
== END 2023-07-17 09:59 | disposition home or self-care (01) ==
PROVIDERS: PCP Nurse Practitioner Family; Visit Provider Nurse Practitioner Family
DX: M76.61 Achilles tendinitis, right leg (principal); E66.01 Morbid (severe) obesity due to excess calories; Z68.41 Body mass index [BMI] 40.0-44.9, adult; M76.62 Achilles tendinitis, left leg; Z82.49 Family history of ischemic heart disease and other diseases of the circulatory system; M72.2 Plantar fascial fibromatosis
CPT/HCPCS: 93000; 99213

== ENCOUNTER → 2023-08-22 07:45 | Outpatient (REF) | payer OTHER, SELFPAY ==
--- NOTE | ~2023-08-22 | NM_ITS ---
Exercise Myocardial perfusion study Indication: Shortness of breath, preoperative cardiovascular risk stratification Technique: The patient was brought in for an exercise perfusion study on 08/22/2023. Patient performed exercise as per Paresh protocol and was injected 45 mCi of sestamibi was given intravenously one target HR was achieved. Images were obtained using the SPECT gamma camera interlaced with the gating device. Images were obtained in supine position. Resting perfusion study was performed on 08/23/2023. Patient was administered 45 mCi of sestamibi intravenously at rest. Images were then obtained in supine position. mGy-cm. Images obtained with and without CT attenuation. Total DLP 140 Images were processed with the software and compared side to side in short axis, horizontal long axis and vertical long axis views. Findings: The stress perfusion study showed non attenuated show early reduced uptake in the apex of the LV myocardium. Remainder of the LV myocardium is normally perfused. Attenuation corrected images show normal uptake of radiotracer in all segments of LV myocardium. The gated study shows normal LV systolic function with calculated LVEF of 69%. LV cavity is normal in size. The gated study shows normal systolic wall thickening and contraction of all segments. There is no transient ischemic dilation. Resting study shows non attenuated images show moderately reduced uptake in the apex of the LV myocardium. Attenuation corrected images show mildly reduced uptake in the septum of the LV myocardium.. Gating at rest reveals normal systolic wall motion with ejection fraction at 64%. The findings are consistent with normal myocardial perfusion. NM/NM cardiolite stress test Impression: 1. Normal myocardial perfusion 2. Gated LVEF is 69% 3. Transient ischemic dilatation not present Stress EKG is negative for ischemia
--- NOTE | 2023-08-22 07:47 | CA_ITS ---
Acquisition Time: 2023-08-22 07:55:13 Total Exercise Time: 00:07:29 Test Indications: E66.01 Medications: SEE H Protocol: REBA Max HR: 141 BPM 85% of Pred: 165 BPM Max BP: 132/070 mmHG Max Work Load: 8.7 METS Exercise stress test exercise 7 min 29 sec of Reba protocol achieving 85% MPHR, without chest pain, with mild to moderate SOB, without arrhythmias, with normotenisve reponse to exercise, without EKG changes. Test reviewed with Dr. Sanchez Referred By: Bridger Marr Overread By: Taylor Ruth
== END ==
LOC: HO.CARD 07:45
PROVIDERS: PCP Nurse Practitioner Family; Visit Provider Nurse Practitioner Family
DX: E66.01 Morbid (severe) obesity due to excess calories (principal); Z82.49 Family history of ischemic heart disease and other diseases of the circulatory system
CPT/HCPCS: 78452; 93017; A9500

== ENCOUNTER → 2023-08-22 07:47 | Outpatient (BNV) | payer OTHER, SELFPAY | PROVIDERS: PCP Nurse Practitioner Family; Visit Provider Nurse Practitioner | DX: R06.02 Shortness of breath (principal) | CPT/HCPCS: 78452; 93016; 93018 ==

== ENCOUNTER 2023-12-03 14:35 | Outpatient (REF) | payer OTHER, SELFPAY ==
--- NOTE | ~2023-12-03 | MM_ITS ---
EXAMINATION: MM SCREENING DIGITAL BREAST TOMOSYNTHESIS, BILATERAL CLINICAL INFORMATION: Screening. Asymptomatic. COMPARISON: Mammography: Comparison is made with available priors TECHNIQUE: Digital breast mammography with tomosynthesis is performed in both the craniocaudal and mediolateral oblique views along with computer-aided detection (CAD). FINDINGS: There are scattered areas of fibroglandular density (ACR BI-RADS breast composition Category b). There are no significant masses, abnormal calcifications, or other abnormalities. MM/MM tomosynthesis screening BI IMPRESSION: No mammographic evidence of malignancy. ASSESSMENT: BI-RADS BI-RADS 1 - Negative RECOMMENDATION: Routine annual mammography screening. 1 year F/U This examination should not preclude the clinical evaluation of a suspicious palpable abnormality. This patient's information was entered into a reminder system with a target due date for their next mammogram. Electronically signed by: Nelly Thomas DO 12/18/2023 05:49 PM EDT
== END 2023-12-03 14:36 | disposition home or self-care (01) ==
LOC: HO.MAMMO 14:35
PROVIDERS: PCP Nurse Practitioner Family; Visit Provider Nurse Practitioner Family
DX: Z12.31 Encounter for screening mammogram for malignant neoplasm of breast (principal)
CPT/HCPCS: 77063; 77067

== ENCOUNTER → 2023-12-03 15:00 | Outpatient (BNV) | payer OTHER, SELFPAY | PROVIDERS: PCP Nurse Practitioner Family; Visit Provider Internal Medicine | DX: Z12.31 Encounter for screening mammogram for malignant neoplasm of breast (principal) | CPT/HCPCS: 77063; 77067 ==

== ENCOUNTER 2024-01-11 15:51 | Outpatient (AMB) | payer OTHER, SELFPAY ==
[2024-01-11 15:53] VITALS: BP 118/78; PULSE 70; O2SAT 96; BMI 37.0
--- NOTE | 2024-01-11 15:53 | A.OFFPC_ITS ---
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 Patient of Bridger Marr. Pmhx significant for HTN, Dyslipidemia, Hypothyroidism, Vitamin D Deficiency, and Obesity. HCM: Colonoscopy: ?3 years ago. Normal per Patient (Done [facility] [place] [facility]). PAP: ??2-3 years ago @ [facility] [place] Has an appointment 02/2024. H/o Abnormal PAP in the past. Mammo: 11/2023. Bi-RADs 1. Patient has been taking Tirzepatide for weight loss x 6 months now. Reports lost 20 pounds. Worried she might need to adjust her Levothyroxine dose. Will repeat TSH levels. FORMERLY [facility], [facility] Medical History Hypothyroidism High cholesterol Class 2 severe obesity with body mass index (BMI) of 35 to 39.9 with serious comorbidity Essential hypertension Surgical History History of tonsillectomy History of foot surgery History of Family History Mother No problems noted. Father No problems noted. 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 1. Little interest or pleasure in doing things: several days 2. Feeling down, depressed, or hopeless: several days 3. Trouble falling or staying asleep, or sleeping too much: more than half the days 4. Feeling tired or having little energy: several days 5. Poor appetite or overeating: several days 6. Feeling bad about yourself - or that you are a failure or have let yourself or your family down: not at all 7. Trouble concentrating on things, such as reading the newspaper or watching television: several days 8. Moving or speaking so slowly that other people could have noticed. Or the opposite - being so fidgety or restless that you have been moving around a lot more than usual: not at all 9. Thoughts that you would be better off or of hurting yourself in some way: not at all Total score: 7 Depression Screening Interpretation: Negative Depression Screening Done: Yes [id number] - PHQ-9 Billing: Yes Source: Developed by Drs. Lul Hackett, Sharon Barrera, Onesimo Waller and colleagues, with an educational ozzie from [employer]. Thrive Questionnaire Date Thrive assessed: 10/15/23 I am a: Patient What is your living situation today?: I have a steady place to live Within the past 12 months, did the food you bought not last and you didn't have the money to get more?: Never true Within the past 12 months, did you worry whether your food would run out before you got money to buy more?: Never true Do you have trouble paying for medicines?: No Do you have trouble getting transportation to medical appointments?: No Do you have trouble paying your heating and electricity bill?: No Do you have trouble taking care of your child, family member or friend?: No Do you have trouble with day-to-day activities such as bathing, preparing meals, shopping, managing finances, etc.?: No Are you currently unemployed and looking for a job?: Yes Are you interested in more education?: No Please select the resources that you would like help with: None Currently or been in a relationship where the following occur: No concerns reported THRIVE Score: 0 AUDIT C Alcohol Use Questionnaire (AUDIT-C) 1. How often do you have a drink containing alcohol?: Monthly or less 2. How many drinks containing alcohol do you have on a typical day when you are drinking?: 1 or 2 3. How often do you have six or more drinks on one occasion?: Never Total Score: 1 Score Reviewed/Action Taken: Yes AARON-7 AMB Questionnaire AARON-7 Date AARON - 7 assessed: 01/11/24 Feeling nervous, anxious, or on edge: 1 = Several days Not being able to stop or control worryin = More than half the days Worrying too much about different things: 2 = More than half the days Trouble relaxin = More than half the days Being so restless that it is hard to sit still: 1 = Several days Becoming easily annoyed or irritable: 3 = Nearly every day Feeling afraid as if something awful might happen: 1 = Several days Total AARON-7 score (0-4 normal; 5-9 mild; 10-14 moderate; 15-21 severe): 12 Source: Developed by Drs. Lul Hackett, Sharon Barrera, Onesimo Waller and colleagues, with an educational ozzie from [employer]. AARON-7 Assessment Billing AARON-7 Assessment Tool: AARON-7 Assessment 44027 Physical exam (Primary Care) Vital Signs: Last Vital Signs Pulse 70 01/11/24 15:53 BP 118/78 01/11/24 15:53 Pulse Ox 96 01/11/24 15:53 Oxygen Delivery Method Room Air 01/11/24 15:53 BMI result Body Mass Index 37.0 Tobacco/Smoking Status: Tobacco use Status Tobacco use date assessed 07/17/23 01/11/24 15:54 Patient Tobacco Use Status Former Tobacco user 01/11/24 15:54 e-Cigarette/Vaping Use Never Used 01/11/24 15:54 PHQ-9: PHQ-9 Score PHQ-9: Total score 7 01/11/24 16:12 Depression Screening Interpretation: Negative Thrive Assessment: Date of Thrive Assessment Date Thrive assessed 10/15/23 01/11/24 15:54 Currently or been in a relationship where the following occur: No concerns reported Coding Level of Care Code Est Pt Prev Care 40-64y(79887) Diagnoses Encounter for routine adult health examination without abnormal findings Z00.00 Morbid obesity E66.01 Vitamin D deficiency E55.9 Hypothyroidism, unspecified type E03.9 Hypothyroidism type: unspecified Essential hypertension I10 Additional Codes AARON-7 Assessment Billing - AARON-7 Assessment Tool: AARON-7 Assessment 84907 ([id number]) Time Spent (min) 30 Assessment & Plan Assessment & Plan (1) Encounter for routine adult health examination without abnormal findings: Code(s): Z00.00 - Encounter for general adult medical examination without abnormal findings Plan: Examination WNL. (2) Morbid obesity: Code(s): E66.01 - Morbid (severe) obesity due to excess calories Category: Medical Plan: Continue on current regiment. (3) Vitamin D deficiency: Code(s): E55.9 - Vitamin D deficiency, unspecified Category: Medical Plan: Continue on current regiment. (4) Hypothyroidism: Code(s): E03.9 - Hypothyroidism, unspecified Category: Medical Qualifiers: Hypothyroidism type: unspecified Qualified Code(s): E03.9 - Hypothyroidism, unspecified Plan: Ordered TSH to monitor levels. (5) Essential hypertension: Code(s): I10 - Essential (primary) hypertension Category: Medical Plan: Continue on current regiment. Orders: Orders TSH reflex Free T4 Today E03.9 - Hypothyroidism, unspecified
== END 2024-01-11 16:37 | disposition home or self-care (01) ==
LOC: HO.HMCC 15:52
PROVIDERS: PCP Nurse Practitioner Family; Visit Provider Nurse Practitioner Family
DX: Z00.00 Encounter for general adult medical examination without abnormal findings (principal); E66.01 Morbid (severe) obesity due to excess calories; Z68.37 Body mass index [BMI] 37.0-37.9, adult; E55.9 Vitamin D deficiency, unspecified; E03.9 Hypothyroidism, unspecified; I10 Essential (primary) hypertension

== ENCOUNTER → 2024-01-11 15:51 | Outpatient (BNVA) | payer OTHER, SELFPAY | PROVIDERS: PCP Nurse Practitioner Family; Visit Provider Nurse Practitioner Family | DX: Z00.00 Encounter for general adult medical examination without abnormal findings (principal); E66.01 Morbid (severe) obesity due to excess calories; Z68.37 Body mass index [BMI] 37.0-37.9, adult; E55.9 Vitamin D deficiency, unspecified; E03.9 Hypothyroidism, unspecified; I10 Essential (primary) hypertension | CPT/HCPCS: 96127 ==

== ENCOUNTER 2024-02-21 11:46 | Outpatient (REF) | payer OTHER, SELFPAY ==
--- OUTSIDE RECORDS SUMMARY | 2024-02-21 11:50 | XMS_ITS ---
Author Organization [facility] [place] Address [address] [place] [address] Care Team Providers Care Project Management Professional Name Role Phone Bridger Hammond Primary Care Provider Unav ailable Black, Nia Unavailable [phone] Allergies No Known Allergies REASON FOR VISIT Heel pain, Ankle pain Medications Medication SIG (Take, Route, Frequency, Duration) Notes Start Date End Date Status Levothyroxine Sodium 100 MCG TAKE 1 TABLET BY MOUTH EVERY DAY Oral for 90 Days Active Semaglutide Not-Taki ng Losartan Potassium 100 MG TAKE 1 TABLET BY MOUTH DAILY Oral for 90 Days Active Metoprolol Succinate ER 100 MG TAKE 1 TABLET BY MOUTH EVERY DAY Oral for 90 Days Active Atorvastatin Calcium 10 MG TAKE 1 TABLET BY MOUTH DAILY. Oral for 90 Days Active Custom Orthotics as directed 01/07/2024 Active Tirzepatide Active Medrol aquilino 4mg as directed orally a s directed for 6 days 11/05/2023 Active Night Splint AFO - L1930 1 wear when at rest for 30 days Active Night Splint AFO - L1930 1 wear at rest for 30 days Active Vitamin D3 1.25 MG (52180 UT) TAKE 1 CAPSULE BY MOUTH EVERY WEEKLY Oral for 90 Days Active Spironolactone 25 MG TAKE 1 TABLET BY MO UTH DAILY Oral for 90 Days Active hydrALAZINE HCl 10 MG TAKE 1 TABLET BY M OUTH TWICE A DAY Oral for 90 Days Active Social History Tobacco Use: Social History Observation Description Date Details (start date - stop date) Former Smoker NA - NA Tobacco Use/Smoking Question Answer Notes Are you a: former smoker Additional Findings: Tobacco Non-User Current no n-smoker Tobacco use other than smoking: Question Answer Notes Are you an other tobacco user? No Problems Problem Type SNOMED Code ICD Code Onset Dates Problem Status W/U Status Risk Notes Problem Plantar fasciitis of left foot ([id number] 9101) Plantar fasciitis of left foot (M72.2) Active confirmed Vital Signs Height 9iy14ku in 01/07/2024 Weight 262 lbs 01/07/2024 BMI 36.54 kg/m2 01/07/2024 Blood pressure systolic 88 mm Hg 01/07/20 24 Blood pressure diastolic 71 mm Hg 024 Encounters Encounter Location Date Provider Diagnosis [facility] [place] [address] [place] [address] 01/07/2024 Nia Black Pain in left foot M79.672 ; Achilles tendinitis of left lower extremity M76.62 ; Plantar fasciitis of left foot M72.2 ; Calcaneal spur, left foot M77.32 ; Interstitial myositis of left foot M60.172 ; Bursitis of left foot M77.52 ; Pain of left heel M79.672 ; Exostosis of left posterior calcaneus M77.32 ; Short Achilles tendon (acquired), left ankle M67.02 and Anterior tibialis tendinitis of left lower extremity M76.812 Assessments Encounter Date Diagnosis (ICD Code) Assessment Notes Treatment Notes Treatment Clinical Notes Section Notes 01/07/2024 Pain in left foot (ICD-10 - M79.672) 01/07/2024 Achilles tendinitis of left lower extremity (ICD-10 - M76.62) 01/07/2024 Plantar fasciitis of left foot (ICD-10 - M72.2) 01/07/2024 Calcaneal spur, left foot (ICD-10 - M77.32) 01/07/2024 Interstitial myositis of left foot (ICD-10 - M60.172) 01/07/2024 Bursitis of left foot (ICD-10 - M77.52) 01/07/2024 Pain of left heel (ICD-10 - M79.672) 01/07/2024 Exostosis of left posterior calcaneus (ICD-10 - M77.32) 01/07/2024 Short Achilles tendon (acquired), left ankle (ICD-10 - M67.02) 01/07/2024 Anterior tibialis tendinitis of left lower extremity (ICD-10 - M76.812) Plan Of Treatment Medication Medication Name Sig Start Date Stop Date Notes Custom Orthotics as directed 01/07/2024 Next Appt Details Follow Up: 2 Months, Reason: Orthotic Disp/fit/eval Provider Name:Nia Uriostegui , 03/17/2024 10:15:00 AM, [address] [place], [address], Procedure Notes * Category Sub-Category Detail Notes DME L3000 Custom OT- Pre scription Custom Fabricated insert, each, removable Biomechanical and casting performed , Prescription Custom Fabricated Foot Insert, each, removable: This type of device is fabricated from a three dimensional model of the patient's own foot (e.g. cast, foam impression, or virtual true 3-D digital image). This type of orthotic is a functional device made of a sufficiently rigid material to control function and reduce pathological forces which has a molded heel cup and trim lines with a minimum of a 10mm heel cup height to provide both medial and lateral directive forces to control the hind and fore foot Progress Notes * Quyen PERAZAOB:[birth year] (53 yo F)Acc No.[id number]:01/07/2024 Progress Notes Patient:?Paige Peraza Provider:?Nia Uriostegui DPM :1970???Age:53 Y???Sex:Female D ate:01/07/2024 Address[address], [place], [place] Pcp:Bridger Marr NP-JUANCHO Subjective: * Chief Complaints: * ???Heel painAnkle pain * HPI: ???Heel pain:?Location:?Proximal plantar aspect of Heel, LEFT , Back of heel, LEFT.?Duration:?, several months.?Course:?, improved , at approximately 50 %.?Aggravated:?standing, walking, walking first thing in the morning/after rest , standing, walking, walking first thing in the morning/after rest.?Treatments:?rest/alter normal daily activity ,??physical therapy,walking boot,stretching exercise,guy,night splint,medrol aquilino.?Ankle Pain:?Nature:?sharp , shooting.?Location:?Front of , Left ankle.?Duration: ?several months.?Course:?improved.? * ROS:?General/Constitutional:?Nausea?denies.?Vomiting?denies.?Hunger Thirst?denies.?Loss appetite?denies.?Chills?denies.?Fatigue?admits.?Fever?denies.?Night Sweats?admits.?Unexplained weight loss?denies.?Unexplained weight gain?admits.?HEENTM:?Dentures?denies.?Dizziness?admits.?Glasses/contacts?admits.?Retinopathy?de nies.?Blurred/double vision?denies.?TMJ?denies.?Discharge/drainage?denies.?Implants?denies.?Sore throat?denies.?Dental implants?denies.?Hard of hearing ?denies.?Difficulty chewing/swallowing/speaking?denies.?Nose bleeds?denies.?Sore mouth?denies.?Respiratory:?On Oxygen?denies.?Pneumonia/pleurisy?denies.?Bronchitis?denies.?Emphysema?denies.?C oughing?denies.?Cough blood?denies.?Shortness of breath?denies.?Wheezing?denies.?Cardiovascular:?Pacemaker?denies.?MVP?denies.?WPW?denies.?CHF?denies.?Heart attack?denies.?Septal defect?denies.?Rapid beat?denies.?Chest pain ?denies.?Atrial Fib.?admits.?Murmur/Palpitations?denies.?Gastrointestinal:?Hemorrhoids?denies.?Stomach/Abdominal pain?denies.?Dark blood stool?denies.?Irritable bowel ?denies.?Constipation?denies.?Diarrhea?denies.?Hematology:?Swelling?denies.?Clots?denies.?Varicose Veins?denies.?Bruising?denies.?Bleeding problem?denies.?Genitourinary:?Blood urine?denies.?Frequent/Painfu/urination/bladder control?denies.?Kidney stones?denies.?Infection (UTI)?denies.?Nephropathy?denies.?sex trans dis (STD)?denies.?Prostate?denies.?Musculoskeletal:?Hammertoes?denies.?Bunions?denies.?Back Pain?admits.?Muscle Cramps/ Resting?denies.?Muscle cramps / walking?denies.?Generalized aches and pains?admits.?Weakness?denies.?Integ.:?Beasley?denies.?Scars?admits.?Corns/calluses?denies.?Ingrown nails?denies.?Painful nails?denies.?Open Sores?denies.?Rashes?denies.?Neurologic:?Difficulty sleeping?denies.?Brain disorder?denies.?Numbness?denies.?Balance trouble?denies.?Confusion?denies.?Fainting/blackouts?denies.?Tingling?denies.?Tr emors?denies.? * Medical History:? * Surgical History:?tonsillect manny C- section biopsy on cervix Left foot surgery * Hospitalization/Major Diagno stic Procedure:?Denies Past Hospitalization * Family History:?Mother: dece ased, arthritis, heart attack, high blood pressure, poor circulation.?Father: , arthritis, foot problems, heart attack, high blood pressure, poor circulation.?Paternal Grand Mother: cancer.?Paternal Grand Father: cancer.?Maternal Grand Mother: cancer.?Maternal Grand Father: cancer.?Siblings: arthritis.? * Social History:?Tobacco Use:?Tobacco Use/Smoking?Are you a:?former smoker ?Additional Findings: Tobacco Non-User?Current non-smoker ?Tobacco use other than smoking?Are you an other tobacco user??No ???Miscellaneous:?Caffeine: yes. ?Children: yes, 1. ?no Exercise. ?Marital status: single. 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 * Medications:?TakingTirzepati de Metoprolol Succinate ER 100 MG Tablet Extended Release 24 Hour TAKE 1 TABLET BY MOUTH EVERY DAY Oral Losartan Potassium 100 MG Tablet TAKE 1 TABLET BY MOUTH DAILY Oral Levothyroxine Sodium 100 MCG Tablet TAKE 1 TABLET BY MOUTH EVERY DAY Oral Atorvastatin Calcium 10 MG Tablet TAKE 1 TABLET BY MOUTH DAILY. Oral hydrALAZINE HCl 10 MG Tablet TAKE 1 TABLET BY MOUTH TWICE A DAY Oral Spironolactone 25 MG Tablet TAKE 1 TABLET BY MOUTH DAILY Oral Vitamin D3 1.25 MG (18116 UT) Capsule TAKE 1 CAPSULE BY MOUTH EVERY WEEKLY Oral Night Splint AFO - L1930 1 wear at restNight Splint AFO - L1930 1 wear when at restMedrol aquilino 4mg Tablet Therapy Pack as directed orally as directedTaking Tirzepatide Taking Metoprolol Succinate ER 100 MG Tablet Extended Release 24 Hour TAKE 1 TABLET BY MOUTH EVERY DAY Oral Taking Losartan Potassium 100 MG Tablet TAKE 1 TABLET BY MOUTH DAILY Oral Taking Levothyroxine Sodium 100 MCG Tablet TAKE 1 TABLET BY MOUTH EVERY DAY Oral Taking Atorvastatin Calcium 10 MG Tablet TAKE 1 TABLET BY MOUTH DAILY. Oral Taking hydrALAZINE HCl 10 MG Tablet TAKE 1 TABLET BY MOUTH TWICE A DAY Oral Taking Spironolactone 25 MG Tablet TAKE 1 TABLET BY MOUTH DAILY Oral Taking Vitamin D3 1.25 MG (15617 UT) Capsule TAKE 1 CAPSULE BY MOUTH EVERY WEEKLY Oral Taking Night Splint AFO - L1930 1 wear at restTaking Night Splint AFO - L1930 1 wear when at restTaking Medrol aquilino 4mg Tablet Therapy Pack as directed orally as directedNot-Taking/PRNSemaglutide Medication List reviewed and reconciled with the patientNot-Taking/PRN Semaglutide Medication List reviewed and reconciled with the patient * Allergies:?N.K.D.A.yes[Aller gies Verified] Objective: * Vitals:?Ht: 2ti92ix, Wt:262, BMI:36.54, Shoe size: 10, BP:88/71 mm Hg, Ht-cm: 180.34 cm, Wt-k.84 kg. * Examination: ???General Examination: ?GENERAL APPEARANCE:?Reveals a pleasant, alert, well nourished, well- developed, well hydrated individual, who demonstrates proper attention to hygiene/body habitus, and is in no acute distress, Pt serves as own historian for office visit today.?ORIENTED:?person, place, and time.?Heel Pain: ?INSPECTION:?Pain on Palpation to Plantar Fascia med. and central bands, intrinsic musc., infra-calcaneal bursa, and med calc tubercle , Pain on Palpation to Achilles tendon/bursa with inflammation and swelling present , LEFT foot , Approximately 50 % LESS.?Orthopedic: ?MUSCLE STRENGTH:?5/5 all groups in a symmetrical fashion, B/L.?GAIT ABNORMALITY:?antalgic , Supinated.?FOOT MORPHOLOGY:?Pes Cavus structure , Semi-rigid , Decreased Ankle joint dorsiflexion ROM, knee extended left.?DIGITAL DEFORMITIES:?Digital contracture, PIPJ, 2-5 B/L, incompl-reducible with WB, or to push-up test, no over, nor underlapping.?TENDONITIS:?Pain on palpation, inflammation, and fusiform swelling to , Tibialis Anterior Tendon , LEFT at 50 % less.?FOOTWEAR:?shoe gear properties exacerbate patients foot/toe deformity.?Neurological: ?TINEL'S COMPRESSION:?Negative tarsal tunnel, dia pedis, and medial calcaneal nerves.?DEEP TENDON REFLEXES:? Deferred on symptomatic extremity due to discomfort.?Vascular: ?DP PULSES(B):?3/4, B/L.?PT PULSES(B):?3/4, B/L.?CAPILLARY FILL TIME:?immediate, all digits, B/L.?TROPHIC CONDITION-TEXTURE/ELASTICITY/TURGOR/HAIR GROWTH(B):?normal, B/L.?TEMPERTURE GRADIENT(C):?normal, warm to cool, proximal to distal, B/L, B/L.? * Physical Examination:?L3000 Custom Fabricated OT:?Custom Orthotic?Custom Fabricated Orthoses.? 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 Plan: * Treatment: * Procedures:?DME:?L3000 Custom OT- Prescription Custom Fabricated insert, each, removable?Biomechanical and casting performed , Prescription Custom Fabricated Foot Insert, each, removable: This type of device is fabricated from a three dimensional model of the patient's own foot (e.g. cast, foam impression, or virtual true 3-D digital image). This type of orthotic is a functional device made of a sufficiently rigid material to control function and reduce pathological forces which has a molded heel cup and trim lines with a minimum of a 10mm heel cup height to provide both medial and lateral directive forces to control the hind and fore foot.? * Procedure Codes:?L3000 Presc ription Custom Fabricated Foot [id number] Prescription Custom Fabricated Foot insert * Preventive Medicine:? ??Counseling:?Discussion:?-14: Office or other outpatient visit for the evaluation and management of an established patient, which required a medically appropriate history and/or examination and MODERATE level of DECISION MAKING for: 1 OR MORE CHRONIC PROBLEM(S) THATS WORSENING, 2 STABLE CHRONIC PROBLEMS, A NEWLY DIAGNOSED PROBLEM WITH UNCERTAIN PROGNOSIS, AN ACUTE COMPLICATED INJURY WITH MULTIPLE TREATMENT OPTIONS, OR AN ACUTE PROBLEM WITH ACCOMPANYING SYSTEMIC SYMPTOMS, THAT POSE(S) A MODERATE RISK OF MORBIDITY. THIS CONDITION MAY ALSO INCLUDE RX DRUG MANAGEMENT, OR A DECISON FOR MINOR SURGERY. The visit on the day of the encounter encompassed interpreting the data and educating the patient as to the nature of their condition, treatment options available according to their individual PMH, meds, allergies, and overall health/living conditions, as well as any potential risks or complications that may occur from a failure to adhere to, and participate in, the recommended course of therapy. The discussion included a complete verbal, and/or written explanation of the examination results, any x-rays taken, the proposed diagnosis, and outline of the treatment plan. A schedule for future care needs was also explained. The patient verbalized an understanding of the instructions at this time and agreed to be an active participant in their treatment. If the patient should think of any questions or concerns after the visit, I have encouraged the patient to call the office.?BioMech.:?I discussed the Pts foot biomechanics with them and how it relates to their problem, A Biomechanical exam with gate analysis and foot casting was performed for Custom Orthotics.?Heel pain:?Discussed other tx options for the patients condition,.?Orthotics:?I explained to the patient the benefits of OT use. I explained that orthoses are medically necessary to decrease the foot pain through proper mechanical control, support of their foot, decrease stretch/strain on the plantar fascia, Custom OT: A comprehensive biomechanical exam, gate analysis, and casting for custom orthoses was performed for L3000 ea per foot.?Physical Therapy:?Discussed the potential short and intermediate school teacher benefits of physical therapy including pain relief, improved function for activity of daily life, return to exercise, increased quality of life. We discussed the usual/customary PT treatment schedule of 2-3 times per week for 4 weeks to as much as 12 weeks depending on insurance approval/coverage. We discussed various PT treatment modalities including, but not limited to, gate training, muscular stabilization, stretching, deep tissue therapeutic massage, ultrasound, TENS, iontophoresis, fluidotherapy, laser therapy, hydrotherapy, contrast ice/heat bath, and passive as well as active ROM exercises. Questions re: PT including visit amounts, rates of success, and goals were answered to the patient's satisfaction. The patient verbally confirmed the medical necessity and use of PT therapy treatment for their MSK condition, Pt defers on therapy at this time.? * Follow Up:?2 Months (Reason: Orthotic Disp/fit/eval) * Images: * Sign off status: Completed true * Provider:?Nia Uriostegui DPM Date:?2023 Generated for Arthur phillips/Lacey/Lottieitting on:?02/21/2024 11:50 AM EST History and Physical Notes * HPI (History of Present Illness) Category Sub-Category Detail Notes Category Not es Heel pain Duration: , several months Location: Proximal plantar asp ect of Heel, LEFT , Back of heel, LEFT Aggravated: standing, walking, w alking first thing in the morning/after rest , standing, walking, walking first thing in the morning/after rest Course: , improved , at appr oximately 50 % Treatments: rest/alter normal da josie activity , physical therapy,walking boot,stretching exercise,guy,night splint,medrol aquilino Ankle Pain Duration: several months Nature: sharp , shooting Course: improved Location: Front of , Left ankl e Physical Examination Category Sub-Category Detail Notes Section Note s L3000 Custom Fabricated OT Custom Orthotic Custom Fabricated Orthoses Examination Category Sub-Category Detail Notes Category Not es Neurological TINEL'S COMPRESSION: Negative ta rsal tunnel, dia pedis, and medial calcaneal nerves DEEP TENDON REFLEXES: Deferred on sympto matic extremity due to discomfort Orthopedic GAIT ABNORMALITY: antalgic , Supinated FOOT MORPHOLOGY: Pes Cavus structure , Semi-rigid , Decreased Ankle joint dorsiflexion ROM, knee extended left FOOTWEAR: shoe gear properties exacerbate patients foot/toe deformity DIGITAL DEFORMITIES: Digital contracture , PIPJ, 2-5 B/L, incompl-reducible with WB, or to push-up test, no over, nor underlapping TENDONITIS: Pain on palpation, i nflammation, and fusiform swelling to , Tibialis Anterior Tendon , LEFT at 50 % less MUSCLE STRENGTH: 5/5 all groups in a symmetrical fashion, B/L General Examination GENERAL APPEARANCE: Reveals a pleasant, alert, well nourished, well-developed, well hydrated individual, who demonstrates proper attention to hygiene/body habitus, and is in no acute distress, Pt serves as own historian for office visit today ORIENTED: person, place, and t suhas Vascular DP PULSES(B): 3/4, B/L PT PULSES(B): 3/4, B/L CAPILLARY FILL TIME: immediate, all digi ts, B/L TEMPERTURE GRADIENT(C): normal, warm to cool, proximal to distal, B/L, B/L TROPHIC CONDITION-TEXTURE/ELASTICITY/TURGOR/HAIR GROWTH(B): normal, B/L Heel Pain INSPECTION: Pain on Palpatio n to Plantar Fascia med. and central bands, intrinsic musc., infra-calcaneal bursa, and med calc tubercle , Pain on Palpation to Achilles tendon/bursa with inflammation and swelling present , LEFT foot , Approximately 50 % LESS
--- OUTSIDE RECORDS SUMMARY | 2024-02-21 11:50 | XMS_ITS ---
[facility] [place] Address [address] [facility] [place], [place] [address] Care Team Providers Care Microsoft Net Developer Name Role Phone Bridger Hammond Primary Care Provider Unav ailable Moody, Nia Unavailable [phone] REASON FOR VISIT Custom Orthotics Encounters Encounter Location Date Provider Diagnosis [facility] [place] [place] [address] 01/07/2024 Nia Uriostegui Plan Of Treatment Next Appt Details Provider Name:Nia A Moody , 03/17/2024 10:15:00 AM, [address] [facility] [place], [address], Progress Notes * Quyen PERAZAOB:[birth year] (53 yo F)Acc No.[id number]:01/07/2024 Patient:?Paige PERAZA :1970???Age:53 Y???Sex:Female Address:[address] [place] [address] * * Date:?
--- OUTSIDE RECORDS SUMMARY | 2024-02-21 11:50 | XMS_ITS ---
[facility] [place] Address [address] [facility] [place] [address] Care Team Providers Care Garde Manger Name Role Phone Bridger Hammond Primary Care Provider Unav ailable Black, Nia Unavailable [phone] REASON FOR VISIT DME L3000 Encounters Encounter Location Date Provider Diagnosis [facility] [place] [address] [place] [address] [place] [address] 11/05/2023 Nia Black Plan Of Treatment Next Appt Details Provider Name:Nia Acevedo Moody , 03/17/2024 10:15:00 AM, [address] [facility] [place], [address], Progress Notes * Quyen PERAZAOB:[birth year] (53 yo F)Acc No.[id number]:11/05/2023 Patient:?Paige Peraza :1970???Age:53 Y???Sex:Female Address:[address], [place] [address] * true * Date:? Generated for Printi ng/Fachig/eTransmitting on:?02/21/2024 11:50 AM EST
--- OUTSIDE RECORDS SUMMARY | 2024-02-21 11:51 | XMS_ITS | Patient Health Record ---
Author Organization [facility] [place] Address [address] [facility] [place] [address] Care Team Providers Care Spear Fisher Name Role Phone Bridger Hammond Primary Care Provider Unav ailable Black, Nia Unavailable [phone] Allergies No Known Allergies Results Component Value Reference Range Notes X ray : Foot, left 3V Reviewed date:11/05/2023 12:46:19 PM Interpretation:See Examination above Performing Lab: Notes/Report: See Examination above Reason For Referral No Information Medications Medication SIG (Take, Route, Frequency, Duration) Notes Start Date End Date Status Levothyroxine Sodium 100 MCG TAKE 1 TABLET BY MOUTH EVERY DAY Oral for 90 Days Active Custom Orthotics as directed 01/07/2024 Active Semaglutide Not-Taki ng Tirzepatide Active Medrol aquilino 4mg as directed orally a s directed for 6 days 11/05/2023 Active Losartan Potassium 100 MG TAKE 1 TABLET BY MOUTH DAILY Oral for 90 Days Active Metoprolol Succinate ER 100 MG TAKE 1 TABLET BY MOUTH EVERY DAY Oral for 90 Days Active Vitamin D3 1.25 MG (09918 UT) TAKE 1 CAPSULE BY MOUTH EVERY WEEKLY Oral for 90 Days Active Spironolactone 25 MG TAKE 1 TABLET BY MO UTH DAILY Oral for 90 Days Active Night Splint AFO - L1930 1 wear when at rest for 30 days Active Night Splint AFO - L1930 1 wear at rest for 30 days Active hydrALAZINE HCl 10 MG TAKE 1 TABLET BY M OUTH TWICE A DAY Oral for 90 Days Active Atorvastatin Calcium 10 MG TAKE 1 TABLET BY MOUTH DAILY. Oral for 90 Days Active Social History Tobacco Use: Social History Observation Description Date Details (start date - stop date) Former Smoker NA - NA Tobacco Use/Smoking Question Answer Notes Are you a: former smoker Additional Findings: Tobacco Non-User Current no n-smoker Alcohol Screen Question Answer Notes Did you have a drink containing alcohol in the p ast year? No Points 0 Interpretation Negative Tobacco use other than smoking: Question Answer Notes Are you an other tobacco user? 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) Active confirmed Vital Signs Blood pressure diastolic 71 mm Hg 01/07/2024 Height 6oa31ea in 01/07/2024 Blood pressure systolic 88 mm Hg 01/07/2024 Weight 262 lbs 01/07/2024 BMI 36.54 kg/m2 01/07/2024 Encounters Encounter Location Date Provider Diagnosis [facility] [address] 11/05/2023 Nia Black Pain in left foot M79.672 ; Plantar fasciitis of left foot M72.2 ; Calcaneal spur, left foot M77.32 ; Interstitial myositis of left foot M60.172 ; Bursitis of left foot M77.52 ; Achilles tendinitis of left lower extremity M76.62 ; Pain of left heel M79.672 ; Exostosis of left posterior calcaneus M77.32 ; Short Achilles tendon (acquired), left ankle M67.02 and Anterior tibialis tendinitis of left lower extremity M76.[address] [facility] [address] [address] 01/07/2024 Nia Black Pain in left foot [...] tibialis tendinitis of left lower extremity M76.812 [facility] [address] [address] 01/07/2024 [facility] [address] [facility] [address] [facility] [address] [address] 11/05/2023 Nia Uriostegui Assessments Encounter Date Diagnosis (ICD Code) Assessment Notes Treatment Notes Treatment Clinical Notes Section Notes 11/05/2023 Pain in left foot (ICD-10 - M79.672) 01/07/2024 Pain in left foot (ICD-10 - M79.672) 01/07/2024 Achilles tendinitis of left lower extremity (ICD-10 - M76.62) 01/07/2024 Plantar fasciitis of left foot (ICD-10 - M72.2) 11/05/2023 Plantar fasciitis of left foot (ICD-10 - M72.2) Patient Educated with: HEEL CORD STRETCHES.pdf (HEEL CORD STRETCHES.pdf) Patient Educated with: RICE THERAPY.pdf (RICE THERAPY.pdf) 11/05/2023 Calcaneal spur, left foot (ICD-10 - M77.32) 01/07/2024 Calcaneal spur, left foot (ICD-10 - M77.32) 01/07/2024 Interstitial myositis of left foot (ICD-10 - M60.172) 11/05/2023 Interstitial myositis of left foot (ICD-10 - M60.172) 11/05/2023 Bursitis of left foot (ICD-10 - M77.52) 01/07/2024 Bursitis of left foot (ICD-10 - M77.52) 01/07/2024 Pain of left heel (ICD-10 - M79.672) 11/05/2023 Pain of left heel (ICD-10 - M79.672) 11/05/2023 Achilles tendinitis of left lower extremity (ICD-10 - M76.62) Patient Educated with: HEEL CORD STRETCHES.pdf (HEEL CORD STRETCHES.pdf) Patient Educated with: RICE THERAPY.pdf (RICE THERAPY.pdf) 11/05/2023 Exostosis of left posterior calcaneus (ICD-10 - M77.32) 01/07/2024 Exostosis of left posterior calcaneus (ICD-10 - M77.32) 11/05/2023 Short Achilles tendon (acquired), left ankle (ICD-10 - M67.02) 01/07/2024 Short Achilles tendon (acquired), left ankle (ICD-10 - M67.02) 11/05/2023 Anterior tibialis tendinitis of left lower extremity (ICD-10 - M76.812) 01/07/2024 Anterior tibialis tendinitis of left lower extremity (ICD-10 - M76.812) Plan Of Treatment Next Appt Details Provider Name:Nia Acevedo Moody , 03/17/2024 10:15:00 AM, [address] [place] [address], [phone], Insurance Providers Payer Name Payer Address Payer Phone Subscriber Number Group Number Insured Name Patient Relationship to Insured Coverage Start Date Coverage End Date Blue Benefits [address] [address] [place] [address] [phone] [id number] Paige Mariscal i Self - patient is the insured Medical (General) History Medical History History ICD Code Arthritis Back,Hip,and Knee pain CAD (Cholesterol) Cancer Headaches/Migraines High blood pressure thyroid Surgical History Surgery Date(Month/Year) tonsillectomy C- section biopsy on cervix Left foot surgery
[2024-02-22 09:32] LABS: HPV 16,18/45 See PAP report
== END 2024-02-21 11:47 | disposition home or self-care (01) ==
LOC: HO.LNP 11:46
PROVIDERS: Visit Provider Obstetrics & Gynecology Gynecology
DX: Z01.419 Encounter for gynecological examination (general) (routine) without abnormal findings (principal)
CPT/HCPCS: 87624; 88175

== ENCOUNTER 2024-03-11 09:50 | Outpatient (REF) | payer OTHER, SELFPAY ==
--- OUTSIDE RECORDS SUMMARY | 2024-03-11 09:57 | XMS_ITS ---
Author Organization [facility] D[place] Address [address] [facility] [place] [address] Care Team Providers Care Netting Inspector Name Role Phone Bridger Hammond Primary Care Provider Unav ailable Black, Nia Unavailable [phone] Allergies No Known Allergies REASON FOR VISIT pcp-02/2024, Heel pain, Ankle pain Medications Medication SIG (Take, Route, Frequency, Duration) Notes Start Date End Date Status Spironolactone 25 MG TAKE 1 TABLET BY MO UTH DAILY Oral for 90 Days Active hydrALAZINE HCl 10 MG TAKE 1 TABLET BY M OUTH TWICE A DAY Oral for 90 Days Active Atorvastatin Calcium 10 MG TAKE 1 TABLET BY MOUTH DAILY. Oral for 90 Days Active Levothyroxine Sodium 100 MCG TAKE 1 TABLET BY MOUTH EVERY DAY Oral for 90 Days Active Vitamin D3 1.25 MG (08153 UT) TAKE 1 CAPSULE BY MOUTH EVERY WEEKLY Oral for 90 Days Active Custom Orthotics as directed A ctive Metoprolol Succinate ER 100 MG TAKE 1 TABLET BY MOUTH EVERY DAY Oral for 90 Days Active Tirzepatide Active Losartan Potassium 100 MG TAKE 1 TABLET BY MOUTH DAILY Oral for 90 Days Active Semaglutide Not-Taki ng Medrol aquilino 4mg as directed orally a s directed for 6 days 11/05/2023 Active Night Splint AFO - L1930 1 wear when at rest for 30 days Active Night Splint AFO - L1930 1 wear at rest for 30 days Active Social History Tobacco Use: Social History [...] Are you an other tobacco user? No Vital Signs Height 5ft 11in in 03/11/2024 Weight 259 lbs 03/11/2024 BMI 36.12 kg/m2 03/11/2024 Blood pressure systolic 120 mm Hg 03/11/20 24 Blood pressure diastolic 77 mm Hg 024 Encounters Encounter Location Date Provider Diagnosis [facility] [address] 03/11/2024 Nia Black Pain in left foot M79.672 [...] Treatment Notes Treatment Clinical Notes Section Notes 03/11/2024 Pain in left foot (ICD-10 - M79.672) 03/11/2024 Achilles tendinitis of left lower extremity (ICD-10 - M76.62) 03/11/2024 Plantar fasciitis of left foot (ICD-10 - M72.2) 03/11/2024 Calcaneal spur, left foot (ICD-10 - M77.32) 03/11/2024 Interstitial myositis of left foot (ICD-10 - M60.172) 03/11/2024 Bursitis of left foot (ICD-10 - M77.52) 03/11/2024 Pain of left heel (ICD-10 - M79.672) 03/11/2024 Exostosis of left posterior calcaneus (ICD-10 - M77.32) 03/11/2024 Short Achilles tendon (acquired), left ankle (ICD-10 - M67.02) 03/11/2024 Anterior tibialis tendinitis of left lower extremity (ICD-10 - M76.812) Plan Of Treatment Medication Medication Name Sig Start Date Stop Date Notes Custom Orthotics as directed Next Appt Details Follow Up: 2 Months, Reason: Orthotic Disp/fit/eval Provider Name:Nia Uriostegui , 05/29/2024 08:15:00 AM, [address] [place], [address], Procedure Notes * Category Sub-Category Detail Notes [...] foot Progress Notes * Quyen PERAZAOB:[birth year] (54 yo F)Acc No.[id number]:03/11/2024 Progress Note Patient:?Paige PERAZA Provider:?Nia Uriostegui DPM :1970???Age:54 Y???Sex:Female D ate:03/11/2024 Address: [address], [facility] Pcp:SHADIA Juan Subjective: * Chief Complaints: * ???1. Pcp-02/2024. 2. Heel p ain. 3. Ankle pain. * HPI: ???Heel pain:?Location:?Proximal plantar aspect of Heel, LEFT , Back of heel, LEFT.?Duration:?, several months.?Course:?, improved , at approximately 80 %.?Aggravated:?standing, walking, walking first thing in the morning/after rest , standing, walking, walking first thing in the morning/after rest.?Treatments:?rest/alter normal daily activity ,??physical therapy,walking boot,stretching exercise,guy,night splint,medrol aquilino.?Misc:?Pt presenting for custom orthotics.?Ankle Pain:?Nature:?sharp , shooting.?Location:?Front of , Left ankle.?Duration: ?several months.?Course:?, intermittent.?Aggravated by:?increased actviity.? * ROS:?General/Constitutional:?Nausea?denies.?Vomiting?denies.?Hunger Thirst?denies.?Loss appetite?denies.?Chills?denies.?Fatigue?admits.?Fever?denies.?Night Sweats?admits.?Unexplained weight loss?denies.?Unexplained weight gain?admits.?HEENTM:?Dentures?denies.?Dizziness?admits.?Glasses/contacts?admits.?Retinopathy?de nies.?Blurred/double vision?denies.?TMJ?denies.?Discharge/drainage?denies.?Implants?denies.?Sore throat?denies.?Dental implants?denies.?Hard of hearing ?denies.?Difficulty chewing/swallowing/speaking?denies.?Nose bleeds?denies.?Sore mouth?denies.?Respiratory:?On Oxygen?denies.?Pneumonia/pleurisy?denies.?Bronchitis?denies.?Emphysema?denies.?C oughing?denies.?Cough blood?denies.?Shortness of breath?denies.?Wheezing?denies.?Cardiovascular:?Pacemaker?denies.?MVP?denies.?WPW?denies.?CHF?denies.?Heart attack?denies.?Septal defect?denies.?Rapid beat?denies.?Chest pain ?denies.?Atrial Fib.?admits.?Murmur/Palpitations?denies.?Gastrointestinal:?Hemorrhoids?denies.?Stomach/Abdominal pain?denies.?Dark blood stool?denies.?Irritable bowel ?denies.?Constipation?denies.?Diarrhea?denies.?Hematology:?Swelling?denies.?Clots?denies.?Varicose Veins?denies.?Bruising?denies.?Bleeding problem?denies.?Genitourinary:?Blood urine?denies.?Frequent/Painfu/urination/bladder control?denies.?Kidney stones?denies.?Infection (UTI)?denies.?Nephropathy?denies.?sex trans dis (STD)?denies.?Prostate?denies.?Musculoskeletal:?Hammertoes?denies.?Bunions?denies.?Back Pain?admits.?Muscle Cramps/ Resting?denies.?Muscle cramps / walking?denies.?Generalized aches and pains?admits.?Weakness?denies.?Integ.:?Beasley?denies.?Scars?admits.?Corns/calluses?denies.?Ingrown nails?denies.?Painful nails?denies.?Open Sores?denies.?Rashes?denies.?Neurologic:?Difficulty sleeping?denies.?Brain disorder?denies.?Numbness?denies.?Balance trouble?denies.?Confusion?denies.?Fainting/blackouts?denies.?Tingling?denies.?Tr emors?denies.? * Medical History:?Arthritis, Back,Hip,and Knee pain, CAD (Cholesterol), Cancer, Headaches/Migraines, High blood pressure, Thyroid. * Surgical History:?tonsillect manny , C- section , biopsy on cervix , Left foot surgery . * Hospitalization/Major Diagno stic Procedure:?Denies Past Hospitalization. * Family History:?Mother: dece ased, arthritis, heart attack, high blood pressure, poor circulation.?Father: , arthritis, foot problems, heart attack, high blood pressure, poor circulation.?Paternal Grand Mother: cancer.?Paternal Grand Father: cancer.?Maternal Grand Mother: cancer.?Maternal Grand Father: cancer.?Siblings: arthritis.? * Social History:?Tobacco Use:?Tobacco Use/Smoking?Are you a:?former smoker ?Additional Findings: Tobacco Non-User?Current non-smoker ?Tobacco use other than smoking?Are you an other tobacco user??No ???Drugs/Alcohol:?Drugs?Have you used drugs other than those for medical reasons in the past 12 months??No ?Alcohol Screen?Did you have a drink containing alcohol in the past year??No ?Points?0 ?Interpretation?Negative ???Miscellaneous:?Caffeine: yes. ?Children: yes, 1. ?Exercise: no. ?Marital status: single. 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 * Medications:?Taking Tirzepat shelley , Taking Metoprolol Succinate ER 100 MG Tablet Extended Release 24 Hour TAKE 1 TABLET BY MOUTH EVERY DAY Oral , Taking Losartan Potassium 100 MG Tablet TAKE 1 TABLET BY MOUTH DAILY Oral , Taking Levothyroxine Sodium 100 MCG Tablet TAKE 1 TABLET BY MOUTH EVERY DAY Oral , Taking Atorvastatin Calcium 10 MG Tablet TAKE 1 TABLET BY MOUTH DAILY. Oral , Taking hydrALAZINE HCl 10 MG Tablet TAKE 1 TABLET BY MOUTH TWICE A DAY Oral , Taking Spironolactone 25 MG Tablet TAKE 1 TABLET BY MOUTH DAILY Oral , Taking Vitamin D3 1.25 MG (81015 UT) Capsule TAKE 1 CAPSULE BY MOUTH EVERY WEEKLY Oral , Taking Night Splint AFO - L1930 1 wear at rest , Taking Night Splint AFO - L1930 1 wear when at rest , Taking Medrol aquilino 4mg Tablet Therapy Pack as directed orally as directed , Taking Custom Orthotics as directed , Not-Taking/PRN Semaglutide , Medication List reviewed and reconciled with the patient * Allergies:?N.K.D.A. Objective: * Vitals:?Ht: 5ft 11in, Wt:259 , BMI:36.12, Shoe size: 10, BP:120/77mm Hg, Ht-cm: 180.34 cm, Wt-k.48 kg. * Examination: ???General Examination: ?GENERAL APPEARANCE:?Reveals [...] on symptomatic extremity due to discomfort.?Vascular: ?DP PULSES (B):?3/4, B/L.?PT PULSES (B):?3/4, B/L.?CAPILLARY FILL TIME:?immediate, all digits, B/L.?TROPHIC CONDITION-TEXTURE/ELASTICITY/TURGOR/HAIR GROWTH (B):?normal, B/L.?TEMPERTURE GRADIENT (C):?normal, warm to cool, proximal to distal, B/L, B/L.? Assessment: * Assessment: 1.?Pain in left foot - M79.6 72???2.?Achilles tendinitis of left lower extremity - M76.62 (Primary)???Specify :Acute problem, Complicated w/ Multiple Tx Options(4)???3.?Plantar fasciitis of left foot - M72.2???Specify :Acute problem, Complicated w/ Multiple Tx Options(4),???4.?Calcaneal spur, left foot - M77.32???5.?Interstitial myositis of left foot - M60.172???6.?Bursitis of left foot - M77.52?? 7.?Pain of left heel - M79.672???8.?Exostosis of left posterior calcaneus - M77.32???9.?Short Achilles tendon (acquired), left ankle - M67.02???10.?Anterior tibialis tendinitis of left lower extremity - M76.812???Specify :Acute problem, Complicated w/ Multiple Tx Options(4),Dx New problem, Prognosis Uncertain (4)??? Plan: * Treatment: * Procedures:?DME:?L3000 Custom OT- [...] Procedure Codes:?L3000 Presc ription Custom Fabricated Foot insert, L3000 Prescription Custom Fabricated Foot insert * Follow Up:?2 Months (Reason: Orthotic Disp/fit/eval) * Images: * The named appointment provid er may or may not be the originator of this progress note, and it is not deemed complete until electronically signed by the appointment provider. Sign off status: Pending * Provider:?Nia Uriostegui DPM Date:?2023 Generated for Arthur phillips/Lacey/Dewey on:?03/11/2024 09:56 AM EST History and Physical Notes * [...] Course: , improved , at appr oximately 80 % Treatments: rest/alter normal da josie activity , physical therapy,walking boot,stretching exercise,guy,night splint,medrol aquilino Misc: Pt presenting for cu stom orthotics Ankle Pain Duration: several months Nature: sharp , shooting Course: , intermittent Location: Front of , Left ankl e Aggravated by: increased actviity Examination Category Sub-Category Detail Notes Category Not [...] person, place, and t suhas Vascular DP PULSES (B): 3, B/L PT PULSES (B): 3/4, B/L CAPILLARY FILL TIME: immediate, all digi ts, B/L TEMPERTURE GRADIENT (C): normal, warm to cool, proximal to distal, B/L, B/L TROPHIC CONDITION-TEXTURE/ELASTICITY/TURGOR/HAIR GROWTH (B): normal, B/L Heel Pain INSPECTION: Pain on Palpatio n to Plantar Fascia med. and central bands, intrinsic musc., infra-calcaneal bursa, and med calc tubercle , Pain on Palpation to Achilles tendon/bursa with inflammation and swelling present , LEFT foot , Approximately 50 % LESS
--- OUTSIDE RECORDS SUMMARY | 2024-03-11 09:57 | XMS_ITS ---
Author Organization [facility] [place] Address [address] [facility] [place] [address] Care Team Providers Care Informatics Educator Name Role Phone Bridger Hammond Primary Care Provider Unav ailable Black, Nia Unavailable [phone] Allergies No Known Allergies REASON FOR VISIT [...] 30 days Active Vitamin D3 1.25 MG (74150 UT) TAKE 1 CAPSULE BY MOUTH EVERY [...] Notes Problem Plantar fasciitis of left foot (7953122582875 9101) Plantar fasciitis of left foot (M72.2) Active confirmed Vital Signs Height 7do55jp in 01/07/2024 Weight 262 lbs 01/07/2024 BMI 36.54 kg/m2 01/07/2024 Blood pressure systolic 88 mm Hg 01/07/20 24 Blood pressure diastolic 71 mm Hg 024 Encounters Encounter Location Date Provider Diagnosis [facility] [place] [address] [place] [address] 01/07/2024 Nia Black Pain in left foot [...] Name:Nia Uriostegui , 05/29/2024 08:15:00 AM, [address] [place], [address], Procedure Notes * Category Sub-Category Detail Notes [...] * Quyen PERAZAOB:[birth year] (53 yo F)Acc No.[id number]:01/07/2024 Progress Notes Patient:?Paige Peraza Provider:?Nia Uriostegui DPM :1970???Age:53 Y???Sex:Female D ate:01/07/2024 Address: [address], [place], [place] Pcp:Bridger Marr NP-JUANCHO Subjective: * Chief Complaints: [...] 1. ?no Exercise. ?Marital status: single. 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
--- OUTSIDE RECORDS SUMMARY | 2024-03-11 09:57 | XMS_ITS ---
Author Organization [facility] [place]ilia Lee Address [address] [facility] [place] [address] Care Team Providers Care Renewable Energy Technician Name Role Phone Bridger Hammond Primary Care Provider Unav ailable Moody, Nia Unavailable [phone] REASON FOR VISIT Custom Orthotics Encounters Encounter Location Date Provider Diagnosis [facility] [place] [place] [address] 01/07/2024 Nia Uriostegui Plan Of Treatment Next Appt Details Provider Name:Nia Acevedo Moody , 05/29/2024 08:15:00 AM, [address] [facility] [place], [address], Progress Notes * Quyen PERAZAOB:[birth year] (54 yo F)Acc No.[id number]:01/07/2024 Patient:?Paige PERAZA :1970???Age:53 Y???Sex:Female Address:[address] [place] [address] * * Date:?
--- OUTSIDE RECORDS SUMMARY | 2024-03-11 09:57 | XMS_ITS | Patient Health Record ---
Author Organization [facility] Dilia Lee Address [address] [place] [address] Care Team Providers Care Crossing Supervisor Name Role Phone Bridger Hammond Primary Care Provider Unav ailable Black, Nia Unavailable [phone] Allergies No Known Allergies Results Component Value [...] Active Custom Orthotics as directed A ctive Medrol aquilino 4mg as directed orally a s directed for 6 days 11/05/2023 Active Night Splint AFO - L1930 1 wear when at rest for 30 days Active Night Splint AFO - L1930 1 wear at rest for 30 days Active Vitamin D3 1.25 MG (49982 UT) TAKE 1 CAPSULE BY MOUTH EVERY WEEKLY Oral for 90 Days Active Metoprolol Succinate ER 100 MG TAKE 1 TABLET BY MOUTH EVERY DAY Oral for 90 Days Active Tirzepatide Active Losartan Potassium 100 MG TAKE 1 TABLET BY MOUTH DAILY Oral for 90 Days Active Semaglutide Not-Taki ng Social History Tobacco Use: Social History Observation [...] Notes Problem Juvenile osteochondrosis of the foot (149868182) 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 Problem Plantar fasciitis of left foot (13805748292153760) Plantar fasciitis of left foot (M72.2) Active confirmed Problem Interstitial myositis (53718511) 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) Active confirmed Vital Signs Blood pressure diastolic 77 mm Hg 03/11/2024 Height 5ft 11in in 03/11/2024 Blood pressure systolic 120 mm Hg 03/11/2024 Weight 259 lbs 03/11/2024 BMI 36.12 kg/m2 03/11/2024 [facility]counters [facility]counter [facility] Date [facility] [address] [place] [address] 03/11/2024 Nia Black Pain in left foot [...] tibialis tendinitis of left lower extremity M76.812 [facility] [place] [address] [place] [address] 11/05/2023 Nia Black Pain in left foot [...] tibialis tendinitis of left lower extremity M76.812 [facility] [address] 01/07/2024 Nia Black Pain in left foot [...] tibialis tendinitis of left lower extremity M76.[address] [address] 01/07/2024 [facility] Moody [address] [address] 07/26/2023 [facility] Moody [address] [address] 08/20/2023 Niamaikel Uriostegui [address] [address] 11/05/2023 Niamaikel Uriostegui Assessments Encounter Date Diagnosis (ICD Code) Assessment Notes Treatment Notes Treatment Clinical Notes Section Notes 11/05/2023 Pain in left foot (ICD-10 - M79.672) 01/07/2024 Pain in left foot (ICD-10 - M79.672) 01/07/2024 Achilles tendinitis of left lower extremity (ICD-10 - M76.62) 03/11/2024 Pain in left foot (ICD-10 - [...] spur, left foot (ICD-10 - M77.32) 03/11/2024 Plantar fasciitis of left foot (ICD-10 - M72.2) 03/11/2024 Calcaneal spur, left foot (ICD-10 - M77.32) 01/07/2024 Interstitial myositis of left foot (ICD-10 - M60.172) 11/05/2023 Interstitial myositis of left foot (ICD-10 - M60.172) 11/05/2023 Bursitis of left foot (ICD-10 - M77.52) 01/07/2024 Bursitis of left foot (ICD-10 - M77.52) 03/11/2024 Interstitial myositis of left foot (ICD-10 [...] left posterior calcaneus (ICD-10 - M77.32) 03/11/2024 Pain of left heel (ICD-10 - M79.672) 03/11/2024 Exostosis of left posterior calcaneus (ICD-10 - M77.32) 11/05/2023 Short Achilles tendon (acquired), left ankle (ICD-10 - M67.02) 01/07/2024 Short Achilles tendon (acquired), left ankle (ICD-10 - M67.02) 11/05/2023 Anterior tibialis tendinitis of left lower extremity (ICD-10 - M76.812) 01/07/2024 Anterior tibialis tendinitis of left lower extremity (ICD-10 - M76.812) 03/11/2024 Short Achilles tendon (acquired), left ankle (ICD-10 - M67.02) 03/11/2024 Anterior tibialis tendinitis of left lower extremity (ICD-10 - M76.812) Plan Of Treatment Next Appt Details Provider Name:Nia Acevedo [place] , 05/29/2024 08:15:00 AM, [address] [place] [address], [phone], Insurance Providers Payer Name Payer Address Payer Phone Subscriber Number Group Number Insured Name Patient Relationship to Insured Coverage Start Date Coverage End Date [employer] Benefits [address] [address] [place] [address] [phone] [id number] Paige Mariscal i Self - patient is the insured Medical (General) History Medical History History ICD Code Arthritis Back,Hip,and Knee pain CAD (Cholesterol) Cancer Headaches/Migraines High blood pressure thyroid Surgical History Surgery Date(Month/Year) tonsillectomy C- section biopsy on cervix Left foot surgery
[2024-03-11 14:13] LABS: TSH reflex Free T4 0.55 uIU/mL (0.32-4.0)
== END 2024-03-11 09:51 | disposition home or self-care (01) ==
LOC: HO.HMGCLDS 09:50
PROVIDERS: PCP Nurse Practitioner Family; Visit Provider Nurse Practitioner Family
DX: E03.9 Hypothyroidism, unspecified (principal)
CPT/HCPCS: 36415; 84443

== ENCOUNTER 2024-08-06 07:24 | Outpatient (AMB) | payer OTHER, SELFPAY ==
--- NOTE | 2024-08-06 07:08 | A.OFFPC_ITS ---
Intake Visit Reasons: Discuss weight loss med Allergies amlodipine [AMLODIPINE] Allergy (Intermediate, Verified 08/06/24 07:12) SWELLING OF FEET Medication List - Last Reconciled 08/06/24 by DENVER Weaver- atorvastatin 10 mg PO DAILY cholecalciferol (vitamin D3) 1,250 mcg PO QWEEK hydralazine 10 mg PO BID levothyroxine 100 mcg PO DAILY losartan 100 mg PO DAILY metoprolol succinate ER 100 mg PO DAILY naproxen 500 mg PO BID spironolactone (Aldactone) 25 mg PO DAILY tirzepatide 10 mg subcut QWEEK tirzepatide (weight loss) (Zepbound) 10 mg subcut QWEEK Tobacco use date assessed: 07/17/23 Dental Screening Dental Screen Date: 07/17/23 HPI Discuss weight loss med HPI Details History of Present Illness The patient is a 54-year-old female presenting with a follow-up visit for weight management and cardiovascular risk factors. She has been using a GLP-1 agonist, Zepbound or its generic alternative, for about 9 to 12 months, resulting in a weight loss of 45 pounds. The patient reports an improvement in her overall well-being. Her medical history includes cardiovascular disease, severe hypertension, and dyslipidemia, necessitating the continuation of her current medication regimen. The patient denies symptoms such as fevers, chills, chest pain, or shortness of breath. There has been a noted decrease in her blood pressure, which supports the decision to reduce her hydralazine dosage from twice daily to once daily at 10 mg. The patient has expressed a desire to potentially discontinue hydralazine if her blood pressure remains stable. Review of Systems - General: Denies fevers, chills. - Cardiovascular: Denies chest pain, rep orts decrease in blood pressure. - Respiratory: Denies shortness of breat h. Plan I will continue the GLP-1 agonist therapy with Zepbound or its generic equivalent to manage the patient's obesity and associated cardiovascular risk factors. Given the improvement in her blood pressure, I will reduce her hydralazine dosage to 10 mg once daily. The patient will monitor her blood pressure and communicate any concerns. Further evaluation of her cardiovascular risk factors will be conducted as necessary. Discussion Notes During the discussion, I emphasized the importance of continuing the GLP-1 agonist therapy due to its effectiveness in weight management and reducing cardiovascular risks. I explained the rationale for reducing the hydralazine dosage, given the patient's improved blood pressure readings. The patient expressed understanding and agreed with the plan to potentially discontinue hydralazine if her blood pressure remains stable. I advised her to monitor her blood pressure regularly and keep me informed of any changes or concerns via the patient portal. Patient Instructions - Continue taking the GLP-1 agonist as p rescribed. - Take hydralazine 10 mg once a day. - Monitor your blood pressure regularly. - Use the patient portal to report any c hanges or concerns. - Contact me if your blood pressure kasia ins low for consideration of stopping hydralazine. [facility] Medical History Hypothyroidism High cholesterol Class 2 severe obesity with body mass index (BMI) of 35 to 39.9 with serious comorbidity Essential hypertension Surgical History History of tonsillectomy History of foot surgery History of Family History Mother No problems noted. Father No problems noted. 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 Current occupational exposures/hazards: No Cognitive needs: No Hearing needs: No Vision needs: Yes (Glasses) Questionnaire Thrive Questionnaire Date Thrive assessed: 10/15/23 I am a: Patient What is your living situation today?: I have a steady place to live Within the past 12 months, did the food you bought not last and you didn't have the money to get more?: Never true Within the past 12 months, did you worry whether your food would run out before you got money to buy more?: Never true Do you have trouble paying for medicines?: No Do you have trouble getting transportation to medical appointments?: No Do you have trouble paying your heating and electricity bill?: No Do you have trouble taking care of your child, family member or friend?: No Do you have trouble with day-to-day activities such as bathing, preparing meals, shopping, managing finances, etc.?: No Are you currently unemployed and looking for a job?: Yes Are you interested in more education?: No Please select the resources that you would like help with: None Currently or been in a relationship where the following occur: No concerns reported THRIVE Score: 0 AUDIT C Alcohol Use Questionnaire (AUDIT-C) 2. How many drinks containing alcohol do you have on a typical day when you are drinking?: 1 or 2 3. How often do you have six or more drinks on one occasion?: Less than monthly Total Score: 1 AARON-7 AMB Questionnaire AARON-7 Date AARON - 7 assessed: 01/11/24 Source: Developed by Drs. Lul Hackett, Sharon Barrera, Onesimo Waller and colleagues, with an educational ozzie from [employer]. Physical exam (Primary Care) Tobacco/Smoking Status: Tobacco use Status Tobacco use date assessed 07/17/23 08/06/24 07:09 Patient Tobacco Use Status Former Tobacco user 08/06/24 07:09 e-Cigarette/Vaping Use Never Used 08/06/24 07:09 Thrive Assessment: Date of Thrive Assessment Date Thrive assessed 10/15/23 08/06/24 07:09 Currently or been in a relationship where the following occur: No concerns reported Telehealth Telehealth Telehealth Platform: [facility] Location of provider rendering services: practice address Location of patient: address on file Patient Identification confirmed using: Name, : Yes Telehealth method: video Patient verbally consented to treatment: Yes Patient verbally consented to billing insurance company: Yes Patient informed of any privacy concerns related to visit: Yes Minutes spent on Phone/Video with Pt.: 22 Coding Level of Care Code Tele Est Pt Level 4 (93056) Diagnoses Essential hypertension I10 Morbid obesity E66.01 Assessment & Plan Assessment & Plan (1) Essential hypertension: Code(s): I10 - Essential (primary) hypertension Category: Medical (2) Morbid obesity: Code(s): E66.01 - Morbid (severe) obesity due to excess calories Category: Medical Plan . Orders: Orders TSH reflex Free T4 Today E66.01 - Morbid (severe) obesity due to excess calories, I10 - Essential (primary) hypertension UA CC w/rflx Micro + Cult Today E66.01 - Morbid (severe) obesity due to excess calories, I10 - Essential (primary) hypertension Lipid Panel Today E66.01 - Morbid (severe) obesity due to excess calories, I10 - Essential (primary) hypertension Complete Blood Count Auto Diff Today E66.01 - Morbid (severe) obesity due to excess calories, I10 - Essential (primary) hypertension Comprehensive [place]. Panel Fast Today E66.01 - Morbid (severe) obesity due to excess calories, I10 - Essential (primary) hypertension Medications: New cyclobenzaprine 10 mg PO BEDTIME PRN 30 tabs 1RF muscle spasm tirzepatide 10 mg (0.5 mL) subcut QWEEK 2 mL 0RF Changed From hydralazine 10 mg PO BID 180 tabs 1RF To hydralazine 10 mg PO DAILY 180 tabs 1RF Refilled naproxen 500 mg PO BID 30 tabs 5RF M76.62 - Achilles tendinitis, left leg naproxen 500 mg PO BID 30 tabs 0RF M76.62 - Achilles tendinitis, left leg
== END 2024-08-06 08:52 | disposition home or self-care (01) ==
LOC: HO.HMCC 07:24
PROVIDERS: PCP Nurse Practitioner Family; Visit Provider Nurse Practitioner Family
DX: I10 Essential (primary) hypertension (principal); E66.01 Morbid (severe) obesity due to excess calories

== ENCOUNTER → 2024-08-06 07:24 | Outpatient (BNVA) | payer OTHER, SELFPAY | PROVIDERS: PCP Nurse Practitioner Family; Visit Provider Nurse Practitioner Family | DX: Z13.89 Encounter for screening for other disorder (principal) ==

== ENCOUNTER 2024-08-18 07:51 | Outpatient (REF) | payer OTHER, SELFPAY ==
[2024-08-18 10:12] LABS: MANUAL DIFF FLAG NO
[2024-08-18 10:23] LABS: Basophils Absolute Auto 0.1 X10*3/uL (0.0-0.2); Basophils Percent Auto 0.7 % (0-2); Eosinophils Absolute Auto 0.3 X10*3/uL (0.0-0.4); Eosinophils Percent Auto 3.4 % (0-4); Hematocrit 37.7 % (37.0-47.0); Hemoglobin 12.5 g/dl (12.0-16.0); Imm Gran Abs Auto 0.04 X10*3/uL (0.00-0.03); Imm Gran Pct Auto 0.4 % (0.0-0.4); Lymphocytes Absolute Auto 2.2 X10*3/uL (1.2-4.9); Lymphocytes Percent Auto 22.7 % (20-40); Mean Corpuscular HGB Conc 33.2 g/dl (31.0-35.0); Mean Corpuscular Hemoglobin 30.8 pg (27.0-33.0); Mean Corpuscular Volume 92.9 fL (80.0-98.0); Monocytes Absolute Auto 0.8 X10*3/uL (0.1-1.2); Monocytes Percent Auto 7.9 % (2-11); Neutrophils Absolute Auto 6.3 x10*3/uL (2.0-8.3); Neutrophils Percent Auto 64.9 % (45-73); Platelet Count 333 X10*3/uL (160-400); Red Blood Count 4.06 X10*6/uL (4.20-5.50); Red Cell Distribution Width 13.2 % (11.0-16.0); White Blood Count 9.8 X10*3/uL (4.8-10.8)
[2024-08-18 10:46] LABS: Appearance Urine Clear; Color Urine Yellow; Glucose Urine UA Negative (Negative); Leukocyte Esterase Urine Moderate (2+) (Negative); Nitrite Urine Negative (Negative); UMIC TRIGGER UACC YES; Urine Blood Negative (Negative); Urine Ketones Trace mg/dL (Negative); Urine Protein Negative (Neg-Trace)
[2024-08-18 10:55] LABS: Alanine Aminotransferase 16 U/L (0-31); Albumin Level 4.5 g/dL (3.5-5.0); Alkaline Phosphatase 82 U/L (39-117); Anion Gap 10 (12-20); Aspartate Amino Transferase 27 U/L (5-31); Bilirubin Total 0.4 mg/dL (0.0-1.0); Blood Urea Nitrogen 18 mg/dL (9-16); Calcium 10.1 mg/dL (8.4-10.2); Carbon Dioxide 28 mmol/L (22-29); Chloride 106 mmol/L (96-108); Cholesterol 145 mg/dL (<200); Estimated Glomerular Filt Rate 42; Glucose Fasting 88 mg/dL (60-99); HDL Cholesterol 38 mg/dL (>40); LDL Cholesterol Calculated 88 mg/dL (<100); Potassium 4.2 mmol/L (3.3-5.1); Sodium 140 mmol/L (135-145); TSH reflex Free T4 1.89 uIU/mL (0.32-4.0); Total Protein 8.1 g/dL (6.5-8.0); Triglycerides 97 mg/dL (<150)
[2024-08-18 11:14] LABS: Bacteria Urine Trace (None Seen); Hyaline Casts Urine 0-2 /LPF (0-2); RBC Urine 0-2 /HPF (0-2); UACC Culture Trigger YES
== END 2024-08-18 07:52 | disposition home or self-care (01) ==
LOC: HO.HMGCLDS 07:51
PROVIDERS: PCP Nurse Practitioner Family; Visit Provider Nurse Practitioner Family
DX: E66.01 Morbid (severe) obesity due to excess calories (principal); I10 Essential (primary) hypertension
CPT/HCPCS: 36415; 80053; 80061; 81001; 84443; 85025; 87086

== ENCOUNTER 2024-12-09 10:45 | Outpatient (REF) | payer OTHER, SELFPAY | END 2024-12-09 10:46 | disposition home or self-care (01) | LOC: HO.MAMMO 10:45 | PROVIDERS: Visit Provider Nurse Practitioner Family | DX: Z12.31 Encounter for screening mammogram for malignant neoplasm of breast (principal) | CPT/HCPCS: 77063; 77067 ==

== ENCOUNTER → 2024-12-09 11:00 | Outpatient (BNV) | payer OTHER, SELFPAY | PROVIDERS: Visit Provider Internal Medicine | DX: Z12.31 Encounter for screening mammogram for malignant neoplasm of breast (principal) | CPT/HCPCS: 77063; 77067 ==

== ENCOUNTER 2025-03-04 10:49 | Outpatient (AMB) | payer OTHER, SELFPAY ==
--- NOTE | 2025-03-04 11:07 | A.OFFPC_ITS ---
Vital Signs 03/04/25 11:10 Weight 228 lb BP 122/68 Blood Pressure Location Rt brachial Position Sitting Respiration 16 Pulse 75 Pulse Source Pulse Oximeter Pulse Oximetry (%) 97 Oxygen Delivery Method Room Air Intake Visit Reasons: PE Hospital Receptionist Required: No Allergies amlodipine (AMLODIPINE) Allergy (Intermediate, Verified 08/06/24 07:12) SWELLING OF FEET Medication List - Last Reconciled 03/04/25 by DENVER Weaver- atorvastatin 10 mg PO DAILY cholecalciferol (vitamin D3) 1,250 mcg PO QWEEK levothyroxine 100 mcg PO DAILY metoprolol succinate ER 100 mg PO DAILY naproxen 500 mg PO BID ondansetron 4 mg PO BID PRN 30 days spironolactone (Aldactone) 25 mg PO DAILY tirzepatide (weight loss) (Zepbound) 10 mg (0.5 mL) subcut QWEEK Tobacco use date assessed: 03/04/25 Dental Screening Dental Screen Date: 03/04/25 Did you have a dental visit in the last 12 months?: Yes Did you have a dental problem in the last 6 months where you did not have access to dental care?: No Was dental information given to patient?: Patient has dentist HPI PE HPI Details History of Present Illness The patient is a 55 year old female presenting for a physical exam. She has been losing weight with a GLP-1 agonist and plans to discontinue this medication in the near future to focus on diet. Her medical history is notable for being a former heavy smoker. 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 HTN: stable on current med regime Health Maintenance - Colon cancer screening: Up to date. - Mammogram: Up to date. - Cervical cancer screening: The patient has a [employer] provider for Pap tests. - Lung cancer screening: Qualifies for a nd will be referred for a low-dose CT scan due to a history of heavy smoking. - Vaccinations: Declined influenza vacci nation today. - Skin cancer surveillance: Advised to m onitor skin for any changes. - Weight management: The patient is losi ng weight on a GLP-1 agonist and plans to focus on diet for maintenance. Social History - Tobacco Use: The patient is a former h eavy smoker. - Diet and Nutrition: The patient is cur rently losing weight on a GLP-1 agonist and plans to focus on her diet to maintain her weight after discontinuing the medication. Review of Systems - Cardiovascular: Denies chest pain. - Respiratory: Denies shortness of breat h. - Gastrointestinal: Denies abdominal aydin n, blood in stool, constipation, and diarrhea. - Neurological: Denies dizziness and rec ent headaches. - Psychiatric: Denies suicidal and homic idal ideation. Physical Exam General: Cooperative, healthy appearing, comfortable, no acute distress and well developed Orientation: Patient oriented x3 Limitations: No limitations Head: Normal to inspection Ears: Hearing grossly normal bilaterally Nose: Normal external nose present Face and sinus: Normal facial exam Eyes: Appearance normal, both eyes and all related structures Neck: Normal visual inspection and Yes full ROM, several skin tags present Respiratory: Normal respiratory effort and able to speak in complete sentences. Clear to auscultation bilaterally Cardiovascular: Regular rate and rhythm. Normal S1 and S2 GI: Normal to inspection. Soft to palpation and nontender Skin: Several skin tags in the neck and upper back, small birthmarks noted Neuro: Patient oriented x3 Extremities: Normal to inspection Results Plan 1. Encounter For Annual Physical Examina tion The patient presented for a routine physical exam. The plan includes ordering fasting labs and encouraging continued skin self-monitoring for any changes. The patient declined an influenza vaccination today. 2. History Of Tobacco Dependence The patient is a former heavy smoker and qualifies for lung cancer screening. A referral will be placed for a low-dose CT scan. 3. Weight Management The patient is having success with weight loss using a GLP-1 agonist. She plans to discontinue the medication and focus on her diet, which is an excellent plan. 4. Essential (primary) hypertension I10 stable on current med regime, encouraged to have labs drawn Discussion Notes I advised the patient that her physical exam was benign. We discussed her health maintenance, noting her colonoscopy and mammogram are up to date. Due to her history as a heavy smoker, I am referring her for a low-dose CT scan for lung cancer screening. I encouraged her to get fasting labs drawn in the near future. I supported her plan to discontinue her GLP-1 agonist and focus on diet for weight management. The patient was encouraged to continue monitoring her skin for any changes. She has declined the flu vaccination at this time. Patient Instructions - Please go to the lab to get your fasti ng blood work done soon. - We will place an order for a low-dose CT scan of your chest to screen for lung cancer because of your past smoking history. - Continue your excellent plan to manage your weight with diet. - Keep watching your skin for any new or changing moles or spots, and let us know if you see anything concerning. - You have declined the flu shot today. [facility] Medical History Hypothyroidism High cholesterol Class 2 severe obesity with body mass index (BMI) of 35 to 39.9 with serious comorbidity Essential hypertension Surgical History History of tonsillectomy History of foot surgery History of Family History Mother No problems noted. Father No problems noted. 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 1. Little interest or pleasure in doing things: several days 2. Feeling down, depressed, or hopeless: several days 3. Trouble falling or staying asleep, or sleeping too much: more than half the days 4. Feeling tired or having little energy: nearly every day 5. Poor appetite or overeating: several days 6. Feeling bad about yourself - or that you are a failure or have let yourself or your family down: not at all 7. Trouble concentrating on things, such as reading the newspaper or watching television: nearly every day 8. Moving or speaking so slowly that other people could have noticed. Or the opposite - being so fidgety or restless that you have been moving around a lot more than usual: not at all 9. Thoughts that you would be better off or of hurting yourself in some way: not at all Total score: 11 Depression Screening Interpretation: Positive (denies any si or hi, declines therapist) Depression Screening Follow-up: Existing condition Depression Screening Done: Yes 15729 - PHQ-9 Billing: Yes Source: Developed by Drs. Lul Hackett, Sharon Barrera, Onesimo Waller and colleagues, with an educational ozzie from [email or web address]. Thrive Questionnaire Date Thrive assessed: 10/15/23 I am a: Patient What is your living situation today?: I have a steady place to live Within the past 12 months, did the food you bought not last and you didn't have the money to get more?: Never true Within the past 12 months, did you worry whether your food would run out before you got money to buy more?: Never true Do you have trouble paying for medicines?: No Do you have trouble getting transportation to medical appointments?: No Do you have trouble paying your heating and electricity bill?: No Do you have trouble taking care of your child, family member or friend?: No Do you have trouble with day-to-day activities such as bathing, preparing meals, shopping, managing finances, etc.?: No Are you currently unemployed and looking for a job?: No Are you interested in more education?: No Please select the resources that you would like help with: None Currently or been in a relationship where the following occur: No concerns reported THRIVE Score: 0 AUDIT C Alcohol Use Questionnaire (AUDIT-C) 1. How often do you have a drink containing alcohol?: Monthly or less Total Score: 1 Score Reviewed/Action Taken: Yes AARON-7 AMB Questionnaire AARON-7 Date AARON - 7 assessed: 03/04/25 Feeling nervous, anxious, or on edge: 3 = Nearly every day Not being able to stop or control worryin = More than half the days Worrying too much about different things: 2 = More than half the days Trouble relaxin = Nearly every day Being so restless that it is hard to sit still: 2 = More than half the days Becoming easily annoyed or irritable: 3 = Nearly every day Feeling afraid as if something awful might happen: 2 = More than half the days Total AARON-7 score (0-4 normal; 5-9 mild; 10-14 moderate; 15-21 severe): 17 Source: Developed by Drs. Lul Hackett, Sharon Barrera, Onesimo Waller and colleagues, with an educational ozzie from [email or web address]. AARON-7 Assessment Billing AARON-7 Assessment Tool: AARON-7 Assessment 18064 (denies any si or hi, declines therapist) Physical exam (Primary Care) Vital Signs: Last Vital Signs Pulse 75 03/04/25 11:10 Resp 16 03/04/25 11:10 BP 122/68 03/04/25 11:10 Pulse Ox 97 03/04/25 11:10 Oxygen Delivery Method Room Air 03/04/25 11:10 Tobacco/Smoking Status: Tobacco use Status Tobacco use date assessed 03/04/25 03/04/25 11:12 Patient Tobacco Use Status Former Tobacco user 03/04/25 11:12 e-Cigarette/Vaping Use Never Used 03/04/25 11:12 PHQ-9: PHQ-9 Score PHQ-9: Total score 11 03/04/25 11:12 Depression Screening Interpretation: Positive (denies any si or hi, declines therapist) Depression Screening Follow-up: Existing condition Thrive Assessment: Date of Thrive Assessment Date Thrive assessed 10/15/23 03/04/25 11:12 Currently or been in a relationship where the following occur: No concerns reported Coding Level of Care Code Est Pt Level 3 (92974) Est Pt Prev Care 40-64y(30456) Diagnoses Physical exam Z00.00 Essential hypertension I10 Vitamin D deficiency E55.9 Smoker F17.200 Additional Codes PHQ-9 - 53767 - PHQ-9 Billing: Yes ([id number]) AARON-7 Assessment Billing - AARON-7 Assessment Tool: AARON-7 Assessment 70378 ([id number]) Assessment & Plan Assessment & Plan (1) Physical exam: Code(s): Z00.00 - Encounter for general adult medical examination without abnormal findings Category: Medical (2) Essential hypertension: Code(s): I10 - Essential (primary) hypertension Category: Medical (3) Vitamin D deficiency: Code(s): E55.9 - Vitamin D deficiency, unspecified Category: Medical (4) Smoker: Code(s): F17.200 - Nicotine dependence, unspecified, uncomplicated Category: Social Hx Plan . Orders: Orders Complete Blood Count Auto Diff Today Z00.00 - Encounter for general adult medical examination without abnormal findings TSH reflex Free T4 Today Z00.00 - Encounter for general adult medical examination without abnormal findings Lipid Panel Today Z00.00 - Encounter for general adult medical examination without abnormal findings Comprehensive [place]. Panel Fast Today Z00.00 - Encounter for general adult medi diego examination without abnormal findings UA CC w/rflx Micro + Cult Today Z00.00 - Encounter for general adult medical examination without abnormal findings Vitamin D 25-OH Total Today E55.9 - Vitamin D deficiency, unspecified Referrals Lung Cancer Screening Referral F17.200 - Nicotine dependence, unspecified, uncomplicated
[2025-03-04 11:10] VITALS: BP 122/68; PULSE 75; RESP 16; O2SAT 97
== END 2025-03-04 11:58 | disposition home or self-care (01) ==
LOC: HO.HMCC 10:50
PROVIDERS: PCP Nurse Practitioner Family; Visit Provider Nurse Practitioner Family
DX: Z00.00 Encounter for general adult medical examination without abnormal findings (principal); I10 Essential (primary) hypertension; E55.9 Vitamin D deficiency, unspecified; F17.200 Nicotine dependence, unspecified, uncomplicated

== ENCOUNTER → 2025-03-04 10:49 | Outpatient (BNVA) | payer OTHER, SELFPAY | PROVIDERS: PCP Nurse Practitioner Family; Visit Provider Nurse Practitioner Family | DX: Z13.31 Encounter for screening for depression (principal); Z13.39 Encounter for screening examination for other mental health and behavioral disorders | CPT/HCPCS: 96127 ==

== ENCOUNTER 2025-03-11 08:43 | Outpatient (REF) | payer OTHER, SELFPAY ==
[2025-03-11 10:19] LABS: MANUAL DIFF FLAG NO
[2025-03-11 10:25] LABS: Hematocrit 41.0 % (37.0-47.0); Hemoglobin 13.6 g/dl (12.0-16.0); Imm Gran Abs Auto 0.03 X10*3/uL (0.00-0.03); Imm Gran Pct Auto 0.3 % (0.0-0.4); Lymphocytes Absolute Auto 2.1 X10*3/uL (1.2-4.9); Mean Corpuscular HGB Conc 33.2 g/dl (31.0-35.0); Mean Corpuscular Hemoglobin 30.2 pg (27.0-33.0); Mean Corpuscular Volume 91.1 fL (80.0-98.0); NRBC Abs Auto 0.000 X10*3/uL (0.0-0.012); NRBC Pct Auto 0.0 /100WBC (0.0-0.2); Platelet Count 316 X10*3/uL (160-400); Red Blood Count 4.50 X10*6/uL (4.20-5.50); White Blood Count 9.6 X10*3/uL (4.8-10.8)
[2025-03-11 10:37] LABS: Appearance Urine Clear; Glucose Urine UA Negative (Negative); PH 7.0 (5.0-9.0); Specific Gravity - Urine 1.025 (1.005-1.025); UMIC TRIGGER UACC YES
[2025-03-11 10:42] LABS: Alanine Aminotransferase 16 U/L (0-31); Albumin Level 4.7 g/dL (3.5-5.0); Alkaline Phosphatase 83 U/L (39-117); Anion Gap 12 (12-20); Aspartate Amino Transferase 26 U/L (5-31); Blood Urea Nitrogen 19 mg/dL (9-16); Calcium 10.4 mg/dL (8.4-10.2); Carbon Dioxide 27 mmol/L (22-29); Chloride 107 mmol/L (96-108); Cholesterol 177 mg/dL (<200); Estimated Glomerular Filt Rate 45; HDL Cholesterol 47 mg/dL (>40); Potassium 4.1 mmol/L (3.3-5.1); Sodium 142 mmol/L (135-145); Total Protein 8.5 g/dL (6.5-8.0); Triglycerides 102 mg/dL (<150)
[2025-03-11 11:04] LABS: UACC Culture Trigger YES
== END 2025-03-11 08:44 | disposition home or self-care (01) ==
LOC: HO.HMGCLDS 08:43
PROVIDERS: PCP Nurse Practitioner Family; Visit Provider Nurse Practitioner Family
DX: Z00.00 Encounter for general adult medical examination without abnormal findings (principal); Z13.6 Encounter for screening for cardiovascular disorders; Z13.29 Encounter for screening for other suspected endocrine disorder; Z13.0 Encounter for screening for diseases of the blood and blood-forming organs and certain disorders involving the immune mechanism; E55.9 Vitamin D deficiency, unspecified
CPT/HCPCS: 36415; 80053; 80061; 81001; 81003; 82306; 84443; 85025; 87086